=== PATIENT | female | born 1950 | race Caucasian/White ===

== ENCOUNTER → 2018-04-24 15:20 | Outpatient (CLI) | payer MEDICARE, BC, SELFPAY ==
[2018-04-24 15:44] LABS: Abs Immature Grans 0.01 k/cumm (0.0-0.09); Absolute Basophil Count 0.05 k/cumm (0.0-0.2); Absolute Eosinophil Count 0.25 k/cumm (0.0-0.7); Absolute Lymphocyte Count 1.99 k/cumm (1.2-3.4); Absolute Monocyte Count 0.62 k/cumm (0.11-0.7); Absolute Neutrophil Count 3.53 k/cumm (1.2-6.7); Basophils % 0.8; Eosinophils % 3.9; HCT 44.4 % (36.0-46.0); HGB 14.9 g/dL (12.0-15.5); Immature Grans % 0.2; Lymphocytes % 30.9; Mean Corp. HGB Concentration 33.6 g/dL (32.0-36.0); Mean Corpuscular Hemoglobin 29.7 pg (27.0-33.0); Mean Corpuscular Volume 88.6 fL (80-95); Mean Platelet Volume 10.3 fL (8.0-11.0); Monocytes % 9.6; Neutrophils % 54.6; Platelet Count 257 x1000/uL (130-400); RBC 5.01 m/cumm (4.00-5.20); RBC Distribution Width 12.8 % (11.7-14.6); White Blood Cell Count 6.45 k/cumm (4.4-10.8)
[2018-04-24 15:52] LABS: Hemoglobin A1C 6.5 % (4.5-6.2)
[2018-04-24 16:21] LABS: ALT 18 U/L (12-78); AST 20 U/L (15-37); Albumin 3.8 g/dL (3.4-5.0); Alkaline Phosphatase 97 U/L (46-116); C-Reactive Protein 0.23 mg/dL (0.0-0.3); CREATININE 0.85 mg/dL (0.55-1.02)
== END ==
PROVIDERS: PCP Family Medicine; Visit Provider Internal Medicine Rheumatology
DX: I10 Essential (primary) hypertension (principal); M06.9 Rheumatoid arthritis, unspecified; Z79.899 Other long term (current) drug therapy
CPT/HCPCS: 36415; 82040; 82565; 83036; 84075; 84132; 84450; 84460; 85025; 86140

== ENCOUNTER 2018-04-28 02:51 | Outpatient (RCR) | payer MEDICARE, BC, SELFPAY ==
[2018-04-28] MEDS: ABATACEPT 750 MG in Normal Saline 100 ML 200 MG IVPB (09:20)
[2018-04-28] MEDS: Normal Saline Flush 10 ML SYR IVP (09:21)
== END 2018-05-01 ==
LOC: INF 02:51
PROVIDERS: PCP Family Medicine; Visit Provider Internal Medicine
DX: M06.9 Rheumatoid arthritis, unspecified (principal)
CPT/HCPCS: 96365; J0129

== ENCOUNTER 2018-05-26 01:41 | Outpatient (RCR) | payer MEDICARE, BC, SELFPAY ==
[2018-05-26 09:11] VITALS: BP 143/66; PULSE 85; RESP 18; TEMP 36; O2SAT 97
[2018-05-26] MEDS: ABATACEPT 750 MG in Normal Saline 100 ML 200 MG IVPB (09:45)
[2018-05-26] MEDS: Normal Saline Flush 10 ML SYR IVP (09:45)
== END 2018-05-31 23:59 | disposition home or self-care (01) ==
LOC: INF 01:41
PROVIDERS: PCP Family Medicine; Visit Provider Internal Medicine
DX: M06.9 Rheumatoid arthritis, unspecified (principal)
CPT/HCPCS: 96365; J0129

== ENCOUNTER 2018-06-23 00:57 | Outpatient (RCR) | payer MEDICARE, BC, SELFPAY ==
[2018-06-23 10:49] VITALS: BP 140/79; PULSE 70; RESP 18; TEMP 36.6; O2SAT 95
[2018-06-23] MEDS: ABATACEPT 750 MG in Normal Saline 100 ML 200 MG IVPB (10:57)
[2018-06-23] MEDS: Normal Saline Flush 10 ML SYR IVP (10:57)
== END 2018-07-01 23:59 | disposition home or self-care (01) ==
LOC: INF 00:57
PROVIDERS: PCP Family Medicine; Visit Provider Internal Medicine
DX: M06.9 Rheumatoid arthritis, unspecified (principal)
CPT/HCPCS: 96365; J0129

== ENCOUNTER 2018-07-21 01:58 | Outpatient (RCR) | payer MEDICARE, BC, SELFPAY ==
[2018-07-21] MEDS: ABATACEPT 750 MG in Normal Saline 100 ML 200 MG IVPB (09:27)
[2018-07-21] MEDS: Normal Saline Flush 10 ML SYR IVP (09:27)
== END 2018-07-31 23:59 | disposition home or self-care (01) ==
LOC: INF 01:58
PROVIDERS: PCP Family Medicine; Visit Provider Family Medicine
DX: M06.9 Rheumatoid arthritis, unspecified (principal)
CPT/HCPCS: 96365; J0129

== ENCOUNTER 2018-08-19 01:36 | Outpatient (RCR) | payer MEDICARE, BC, SELFPAY ==
[2018-08-19] MEDS: Normal Saline Flush 10 ML SYR IVP (09:31)
[2018-08-19] MEDS: ABATACEPT 750 MG in Normal Saline 100 ML 200 MG IVPB (09:31)
== END 2018-08-31 23:59 | disposition home or self-care (01) ==
LOC: INF 01:36
PROVIDERS: PCP Family Medicine; Visit Provider Family Medicine
DX: M06.9 Rheumatoid arthritis, unspecified (principal)
CPT/HCPCS: 96365; J0129

== ENCOUNTER 2018-08-27 16:02 | Outpatient (CLI) | payer MEDICARE, BC, SELFPAY ==
[2018-08-27 17:04] LABS: Abs Immature Grans 0.01 k/cumm (0.0-0.09); Absolute Basophil Count 0.04 k/cumm (0.0-0.2); Absolute Eosinophil Count 0.65 k/cumm (0.0-0.7); Absolute Lymphocyte Count 2.35 k/cumm (1.2-3.4); Absolute Monocyte Count 0.65 k/cumm (0.11-0.7); Absolute Neutrophil Count 4.07 k/cumm (1.2-6.7); Basophils % 0.5; Eosinophils % 8.4; HCT 45.2 % (36.0-46.0); HGB 14.9 g/dL (12.0-15.5); Immature Grans % 0.1; Lymphocytes % 30.2; Mean Corpuscular Hemoglobin 29.5 pg (27.0-33.0); Mean Corpuscular Volume 89.5 fL (80-95); Mean Platelet Volume 10.3 fL (8.0-11.0); Monocytes % 8.4; Neutrophils % 52.4; Platelet Count 231 x1000/uL (130-400); RBC 5.05 m/cumm (4.00-5.20); RBC Distribution Width 13.1 % (11.7-14.6); White Blood Cell Count 7.77 k/cumm (4.4-10.8)
[2018-08-27 18:07] LABS: ALT 19 U/L (12-78); AST 18 U/L (15-37); Albumin 3.7 g/dL (3.4-5.0); Alkaline Phosphatase 76 U/L (46-116); BUN 21 mg/dL (7-18); Bilirubin, Total 0.7 mg/dL (0.2-1.0); CREATININE 1.16 mg/dL (0.55-1.02); Calcium 9.6 mg/dL (8.5-10.1); Chloride 101 mmol/L (98-107); Estimated GFR 46.74 (mL/min/1.73m2); Glucose 129 mg/dL (70-100); Potassium 3.9 mmol/L (3.5-5.1); Sodium 142 mmol/L (136-145); Total Protein 6.7 g/dL (6.4-8.2)
[2018-08-27 18:33] LABS: Hemoglobin A1C 6.8 % (4.5-6.2)
== END 2018-08-27 16:22 ==
PROVIDERS: PCP Family Medicine; Visit Provider Internal Medicine Rheumatology
DX: M06.9 Rheumatoid arthritis, unspecified (principal); I10 Essential (primary) hypertension; Z79.899 Other long term (current) drug therapy
CPT/HCPCS: 36415; 80053; 83036; 85025; 86140

== ENCOUNTER 2018-09-17 01:56 | Outpatient (RCR) | payer MEDICARE, BC, SELFPAY ==
[2018-09-17] MEDS: Normal Saline Flush 10 ML SYR IVP (09:30)
[2018-09-17] MEDS: ABATACEPT 750 MG in Normal Saline 100 ML 200 MG IVPB (09:30)
== END 2018-10-01 23:59 | disposition home or self-care (01) ==
LOC: INF 01:56
PROVIDERS: PCP Family Medicine; Visit Provider Internal Medicine
DX: M06.9 Rheumatoid arthritis, unspecified (principal)
CPT/HCPCS: 96365; J0129

== ENCOUNTER 2018-10-15 01:27 | Outpatient (RCR) | payer MEDICARE, BC, SELFPAY ==
[2018-10-15] MEDS: Normal Saline Flush 10 ML SYR IVP ×2 (09:21→09:43)
[2018-10-15] MEDS: ABATACEPT 750 MG in Normal Saline 100 ML 200 MG IVPB (09:43)
[2018-10-15 09:49] VITALS: BP 104/69; PULSE 70; TEMP 36.6; O2SAT 93
[2018-10-15 10:37] VITALS: BP 142/71
== END 2018-10-29 23:59 | disposition home or self-care (01) ==
LOC: INF 01:27
PROVIDERS: PCP Family Medicine; Visit Provider Internal Medicine
DX: M05.79 Rheumatoid arthritis with rheumatoid factor of multiple sites without organ or systems involvement (principal)
CPT/HCPCS: 96365; J0129

== ENCOUNTER 2018-11-12 01:51 | Outpatient (RCR) | payer MEDICARE, BC, SELFPAY ==
[2018-11-12] MEDS: Normal Saline Flush 10 ML SYR IVP (09:43)
[2018-11-12] MEDS: ABATACEPT 750 MG in Normal Saline 100 ML 200 MG IVPB (09:43)
== END 2018-11-29 23:59 | disposition home or self-care (01) ==
LOC: INF 01:51
PROVIDERS: PCP Family Medicine; Visit Provider Internal Medicine
DX: M05.79 Rheumatoid arthritis with rheumatoid factor of multiple sites without organ or systems involvement (principal)
CPT/HCPCS: 96365; J0129

== ENCOUNTER 2018-12-04 09:01 | Outpatient (CLI) | payer MEDICARE, BC, SELFPAY ==
[2018-12-04 09:32] LABS: Absolute Basophil Count 0.03 k/cumm (0.0-0.2); Absolute Eosinophil Count 0.53 k/cumm (0.0-0.7); Absolute Lymphocyte Count 1.69 k/cumm (1.2-3.4); Absolute Monocyte Count 0.58 k/cumm (0.11-0.7); Absolute Neutrophil Count 2.97 k/cumm (1.2-6.7); Basophils % 0.5; Eosinophils % 9.1; HCT 45.6 % (36.0-46.0); Lymphocytes % 29.1; Mean Corp. HGB Concentration 32.9 g/dL (32.0-36.0); Mean Corpuscular Hemoglobin 29.2 pg (27.0-33.0); Mean Corpuscular Volume 88.7 fL (80-95); Mean Platelet Volume 9.9 fL (8.0-11.0); Neutrophils % 51.3; Platelet Count 219 x1000/uL (130-400); RBC 5.14 m/cumm (4.00-5.20); RBC Distribution Width 12.8 % (11.7-14.6)
[2018-12-04 10:19] LABS: ALT 19 U/L (12-78); AST 18 U/L (15-37); Albumin 3.6 g/dL (3.4-5.0); Alkaline Phosphatase 75 U/L (46-116); Anion Gap 6.6 mmol/L (3-11); BUN 21 mg/dL (7-18); Bilirubin, Total 0.8 mg/dL (0.2-1.0); CO2 31.4 mmol/L (21.0-32.0); Calcium 9.1 mg/dL (8.5-10.1); Chloride 101 mmol/L (98-107); Glucose 148 mg/dL (70-100); Sodium 139 mmol/L (136-145); Total Protein 6.6 g/dL (6.4-8.2)
== END 2018-12-04 09:21 ==
PROVIDERS: PCP Family Medicine; Visit Provider Internal Medicine Rheumatology
DX: M06.9 Rheumatoid arthritis, unspecified (principal); I10 Essential (primary) hypertension; Z79.899 Other long term (current) drug therapy
CPT/HCPCS: 36415; 80053; 83036; 85025; 86140

== ENCOUNTER 2018-12-08 01:20 | Outpatient (RCR) | payer MEDICARE, BC, SELFPAY ==
[2018-12-08] MEDS: ABATACEPT 750 MG in Normal Saline 100 ML 200 MG IVPB (12:20)
[2018-12-08] MEDS: Normal Saline Flush 10 ML SYR IVP (12:20)
[2018-12-08 12:21] VITALS: BP 146/70; PULSE 73; RESP 18; TEMP 36; O2SAT 98
== END 2018-12-29 23:59 | disposition home or self-care (01) ==
LOC: INF 01:20
PROVIDERS: PCP Family Medicine; Visit Provider Internal Medicine
DX: M05.79 Rheumatoid arthritis with rheumatoid factor of multiple sites without organ or systems involvement (principal)
CPT/HCPCS: 96365; J0129

== ENCOUNTER 2019-01-06 01:11 | Outpatient (RCR) | payer MEDICARE, BC, SELFPAY ==
[2019-01-06] MEDS: ABATACEPT 750 MG in Normal Saline 100 ML 200 MG IVPB (09:37)
[2019-01-06] MEDS: Normal Saline Flush 10 ML SYR IVP (09:37)
== END 2019-01-29 23:59 | disposition home or self-care (01) ==
LOC: INF 01:11
PROVIDERS: PCP Family Medicine; Visit Provider Internal Medicine
DX: M05.79 Rheumatoid arthritis with rheumatoid factor of multiple sites without organ or systems involvement (principal)
CPT/HCPCS: 96365; J0129

== ENCOUNTER 2019-01-22 00:29 | Outpatient (CLI) | payer MEDICARE, BC, SELFPAY ==
--- NOTE | 2019-01-22 10:30 | MERGE_ITS ---
*[facility]* *[facility]* [address] [place] [address] Date of study: 01/22/2019 Transthoracic Echocardiography M-mode, complete 2D, complete spectral Doppler, and color Doppler *STUDY CONCLUSIONS* Summary: 1. Left ventricle: The cavity size was normal. Wall thickness was normal. Systolic function was vigorous. The estimated ejection fraction was 65-70%. There was dynamic obstruction in the mid cavity likely due to vigorous LV function. Wall motion was normal; there were no regional wall motion abnormalities. 2. Right ventricle: The cavity size was normal. Systolic function was normal. 3. Left atrium: The atrium was moderately dilated. 4. Aortic valve: Trileaflet; mildly thickened, mildly calcified leaflets. Valve mobility was restricted. Transvalvular velocity was increased. There was mild to moderate stenosis. There was trivial regurgitation. Peak velocity (S): 3.1m/sec. VTI ratio of LVOT to aortic valve: 0.47. 5. Inferior vena cava: The vessel was patent and normal in size. The respirophasic diameter changes were in the normal range (greater than or equal to 50%), consistent with normal central venous pressure. *PATIENT PRESENTATION* Height: 162.6cm ((64in) ) S/D Pressure: 140 / 82 Weight: 89.8kg ((197.6lb) ) BSA: 2.05m^2 Test start time: 10:35 AM. Test stop time: 12:00 PM. ORDERING Sejal Bush REFERRING Sejal Bush PERFORMING Unknown CONSULTING Ivette Escamilla PERFORMING [facility] DIETETIC AIDE RT Adelaida (R)(CT), RDCS *PROCEDURE DATA* Procedure information: The patient was identified by two identifiers. This study was interpreted by [facility]. Pertinent images and digital data are archived for permanent storage and are available for subsequent review. No prior study was available for comparison. Study status: Routine. Transthoracic echocardiography. M-mode, complete 2D, complete spectral Doppler, and color Doppler. A Transthoracic Echocardiogram was performed. Scanning was performed from the parasternal, apical, subcostal, and suprasternal notch acoustic windows. Images were obtained using an [id number] cardiac ultrasound machine. Image quality was adequate. Study completion: The patient tolerated the procedure well. There were no complications. History: PMH: Lightheadedness, new systolic murmur R01.1. *CARDIAC ANATOMY* Left ventricle: The cavity size was normal. Wall thickness was normal. Systolic function was vigorous. The estimated ejection fraction was 65-70%. There was dynamic obstruction in the mid cavity likely due to vigorous LV function. Wall motion was normal; there were no regional wall motion abnormalities. Findings consistent with diastolic dysfunction. There was no evidence of elevated ventricular filling pressure by Doppler parameters. Aortic valve: Trileaflet; mildly thickened, mildly calcified leaflets. Valve mobility was restricted. Doppler: Transvalvular velocity was increased. There was mild to moderate stenosis. There was trivial regurgitation. VTI ratio of LVOT to aortic valve: 0.47. Valve area (VTI): 1.4cm^2. Indexed valve area (VTI): 0.7cm^2/m^2. Peak velocity ratio of LVOT to aortic valve: 0.41. Valve area (Vmax): 1.2cm^2. Indexed valve area (Vmax): 0.6cm^2/m^2. Mean velocity ratio of LVOT to aortic valve: 0.45. Valve area (Vmean): 1.3cm^2. Indexed valve area (Vmean): 0.6cm^2/m^2. Mean gradient (S): 22.7mm Hg. Peak gradient (S): 37.7mm Hg. Aorta: Aortic root: The aortic root was normal in size. Ascending aorta: The ascending aorta was normal in size. Mitral valve: Moderately calcified annulus. Mobility was not restricted. Doppler: Transvalvular velocity was within the normal range. There was no evidence for stenosis. There was mild regurgitation. Valve area by pressure half-time: 2.2cm^2. Indexed valve area by pressure half-time: 1.1cm^2/m^2. Peak gradient (D): 3.7mm Hg. Left atrium: The atrium was moderately dilated. Right ventricle: The cavity size was normal. Systolic function was normal. Pulmonic valve: The pulmonary valve appears to be grossly normal. Doppler: Transvalvular velocity was within the normal range. There was no evidence for stenosis. There was no significant regurgitation. Tricuspid valve: Structurally normal valve. Doppler: Transvalvular velocity was within the normal range. There was no evidence for stenosis. There was trivial regurgitation. Pulmonary artery: Poorly visualized. Pulmonary systolic pressure was within the normal range, in the range of 20mm Hg to 25mm Hg. Right atrium: The atrium was normal in size. Pericardium: There was no pericardial effusion. Systemic veins: Inferior vena cava: Well visualized. The vessel was patent and normal in size. The respirophasic diameter changes were in the normal range (greater than or equal to 50%), consistent with normal central venous pressure. Baseline ECG: Normal sinus rhythm. Measurements Left ventricle Value Reference LV ID, ED, PLAX 4.8 cm 3.5 - 6.0 LV ID, ES, PLAX 3.2 cm 2.1 - 4.0 LV PW thickness, ED, PLAX 1.0 cm LV end-diastolic volume, 1-p A2C 83 ml LV ejection fraction, 1-p A2C 69 % LV end-diastolic volume, 1-p A4C 82 ml LV ejection fraction, 1-p A4C 64 % LV e', lateral 0.088 m/sec LV E/e', lateral 11 LV e', medial 0.062 m/sec LV E/e', medial 16 LV e', average 0.075 m/sec LV E/e', average 13 Ventricular septum Value Reference IVS thickness, ED, PLAX 0.9 cm LVOT Value Reference LVOT ID, A-P 1.9 cm LVOT area 2.9 cm^2 LVOT peak velocity, S 1.27 m/sec LVOT mean velocity, S 1.03 m/sec LVOT VTI, S 31.4 cm LVOT peak gradient, S 6.4 mm Hg LVOT mean gradient, S 4.5 mm Hg Stroke volume (SV), LVOT DP 92 ml Stroke index (SV/bsa), LVOT DP 45 ml/m^2 Aortic valve Value Reference Aortic valve peak velocity, S 3.1 m/sec Aortic valve mean velocity, S 2.27 m/sec Aortic valve VTI, S 67.0 cm Aortic mean gradient, S 22.7 mm Hg Aortic peak gradient, S 37.7 mm Hg VTI ratio, LVOT/AV 0.47 Aortic valve area, VTI 1.4 cm^2 Velocity ratio, peak, LVOT/AV 0.41 Aortic valve area, peak velocity 1.2 cm^2 Velocity ratio, mean, LVOT/AV 0.45 Aortic valve area, mean velocity 1.3 cm^2 Aortic valve area/bsa, mean velocity 0.6 cm^2/m^2 Aorta Value Reference Aortic root ID, ED 3.1 cm Ascending aorta ID, A-P, S 3.3 cm Left atrium Value Reference LA ID, A-P, ES 4.0 cm LA ID/bsa, A-P 2.0 cm/m^2 <=2.2 LA area, ES, A4C (H) 25.4 cm^2 8.8 - 23.4 LA volume/bsa, ES, 1-p A4C 47 ml/m^2 LA/aortic root ratio 1.31 Mitral valve Value Reference Mitral E-wave peak velocity 0.96 m/sec Mitral A-wave peak velocity 1.48 m/sec Mitral deceleration time (H) 342 ms 150 - 230 Mitral pressure half-time 99 ms Mitral peak gradient, D 3.7 mm Hg Mitral E/A ratio, peak 0.65 Mitral valve area, PHT, DP 2.2 cm^2 Pulmonary veins Value Reference Pulmonary vein peak velocity, S 0.79 m/sec Pulmonary vein peak velocity, D 0.38 m/sec Pulmonary vein velocity ratio, peak, 2.09 S/D Pulmonary vein A-wave reversal peak 0.98 m/sec velocity Pulmonary vein A-wave reversal 111 ms duration Tricuspid valve Value Reference Tricuspid regurg peak velocity 2 m/sec Tricuspid peak RV-RA gradient 16.1 mm Hg Right atrium Value Reference RA area, ES, A4C 10.7 cm^2 8.3 - 19.5 Legend: (L) and (H) elly values outside specified reference range. I have personally reviewed the images and have reviewed and edited the reported findings. Electronically signed by Queta Holbrook 01/25/2019 07:19
== END 2019-01-22 00:49 ==
PROVIDERS: PCP Family Medicine; Visit Provider Internal Medicine Rheumatology
DX: R01.1 Cardiac murmur, unspecified (principal); R42 Dizziness and giddiness; I35.2 Nonrheumatic aortic (valve) stenosis with insufficiency; I10 Essential (primary) hypertension; E78.5 Hyperlipidemia, unspecified
CPT/HCPCS: 93306

== ENCOUNTER 2019-02-04 01:27 | Outpatient (RCR) | payer MEDICARE, BC, SELFPAY ==
[2019-02-04] MEDS: Normal Saline Flush 10 ML SYR IVP (10:04)
[2019-02-04] MEDS: ABATACEPT 750 MG in Normal Saline 100 ML 200 MG IVPB (10:04)
== END 2019-02-28 23:59 | disposition home or self-care (01) ==
LOC: INF 01:27
PROVIDERS: PCP Family Medicine; Visit Provider Internal Medicine
DX: M05.79 Rheumatoid arthritis with rheumatoid factor of multiple sites without organ or systems involvement (principal)
CPT/HCPCS: 96365; J0129

== ENCOUNTER 2019-03-03 01:06 | Outpatient (RCR) | payer MEDICARE, BC, SELFPAY ==
[2019-03-03 09:28] LABS: Abs Immature Grans 0.01 k/cumm (0.0-0.09); Absolute Basophil Count 0.03 k/cumm (0.0-0.2); Absolute Eosinophil Count 0.91 k/cumm (0.0-0.7); Absolute Lymphocyte Count 1.56 k/cumm (1.2-3.4); Absolute Monocyte Count 0.59 k/cumm (0.11-0.7); Absolute Neutrophil Count 2.64 k/cumm (1.2-6.7); Basophils % 0.5; Eosinophils % 15.9; HCT 45.9 % (36.0-46.0); HGB 15.3 g/dL (12.0-15.5); Immature Grans % 0.2; Lymphocytes % 27.2; Mean Corp. HGB Concentration 33.3 g/dL (32.0-36.0); Mean Corpuscular Hemoglobin 29.2 pg (27.0-33.0); Mean Corpuscular Volume 87.6 fL (80-95); Monocytes % 10.3; Neutrophils % 45.9; Platelet Count 240 x1000/uL (130-400); RBC 5.24 m/cumm (4.00-5.20); White Blood Cell Count 5.74 k/cumm (4.4-10.8)
[2019-03-03] MEDS: Normal Saline Flush 10 ML SYR IVP (09:30)
[2019-03-03 09:40] LABS: ALT 11 U/L (12-78); AST 9 U/L (15-37); Albumin 3.6 g/dL (3.4-5.0); Alkaline Phosphatase 74 U/L (46-116); Anion Gap 6.8 mmol/L (3-11); BUN 15 mg/dL (7-18); Bilirubin, Total 0.7 mg/dL (0.2-1.0); C-Reactive Protein 0.25 mg/dL (0.0-0.3); CO2 30.2 mmol/L (21.0-32.0); CREATININE 0.81 mg/dL (0.55-1.02); Calcium 8.9 mg/dL (8.5-10.1); Chloride 102 mmol/L (98-107); Glucose 168 mg/dL (70-100); Potassium 3.2 mmol/L (3.5-5.1); Sodium 139 mmol/L (136-145)
[2019-03-03] MEDS: ABATACEPT 750 MG in Normal Saline 100 ML 200 MG IVPB (09:54)
== END 2019-03-31 23:59 | disposition home or self-care (01) ==
LOC: INF 01:06
PROVIDERS: PCP Family Medicine; Visit Provider Internal Medicine
DX: M05.79 Rheumatoid arthritis with rheumatoid factor of multiple sites without organ or systems involvement (principal)
CPT/HCPCS: 36415; 80053; 96365; 85025; 86140; J0129

== ENCOUNTER 2019-04-29 00:52 | Outpatient (RCR) | payer MEDICARE, BC, SELFPAY ==
[2019-04-01] MEDS: Normal Saline Flush 10 ML SYR IVP (09:43)
[2019-04-01] MEDS: ABATACEPT 750 MG in Normal Saline 100 ML 200 MG IVPB (09:43)
[2019-04-29] MEDS: Normal Saline Flush 10 ML SYR IVP (09:31)
[2019-04-29] MEDS: ABATACEPT 750 MG in Normal Saline 100 ML 200 MG IVPB (09:31)
[2019-04-29 09:51] LABS: Abs Immature Grans 0.01 k/cumm (0.0-0.09); Absolute Basophil Count 0.05 k/cumm (0.0-0.2); Absolute Eosinophil Count 0.32 k/cumm (0.0-0.7); Absolute Lymphocyte Count 1.55 k/cumm (1.2-3.4); Absolute Monocyte Count 0.51 k/cumm (0.11-0.7); Absolute Neutrophil Count 2.72 k/cumm (1.2-6.7); Eosinophils % 6.2; HCT 45.8 % (36.0-46.0); HGB 15.2 g/dL (12.0-15.5); Immature Grans % 0.2; Mean Corp. HGB Concentration 33.2 g/dL (32.0-36.0); Mean Corpuscular Hemoglobin 29.3 pg (27.0-33.0); Mean Corpuscular Volume 88.2 fL (80-95); Mean Platelet Volume 10.6 fL (8.0-11.0); Monocytes % 9.9; Neutrophils % 52.7; Platelet Count 213 x1000/uL (130-400); RBC 5.19 m/cumm (4.00-5.20); RBC Distribution Width 13.2 % (11.7-14.6); White Blood Cell Count 5.16 k/cumm (4.4-10.8)
== END 2019-05-01 23:59 | disposition home or self-care (01) ==
LOC: INF 00:52
PROVIDERS: Internal Medicine; PCP Family Medicine; Visit Provider Internal Medicine
DX: M05.79 Rheumatoid arthritis with rheumatoid factor of multiple sites without organ or systems involvement (principal)
CPT/HCPCS: 36415; 80053; 96365; 85025; 86140; J0129

== ENCOUNTER 2019-05-10 09:34 | Outpatient (CLI) | payer MEDICARE, BC, SELFPAY ==
[2019-05-10 09:52] LABS: Abs Immature Grans 0.01 k/cumm (0.0-0.09); Absolute Basophil Count 0.05 k/cumm (0.0-0.2); Absolute Eosinophil Count 0.61 k/cumm (0.0-0.7); Absolute Lymphocyte Count 1.83 k/cumm (1.2-3.4); Absolute Monocyte Count 0.53 k/cumm (0.11-0.7); Absolute Neutrophil Count 3.08 k/cumm (1.2-6.7); Basophils % 0.8; HCT 46.1 % (36.0-46.0); HGB 15.2 g/dL (12.0-15.5); Immature Grans % 0.2; Mean Corpuscular Hemoglobin 29.2 pg (27.0-33.0); Mean Corpuscular Volume 88.7 fL (80-95); Mean Platelet Volume 9.8 fL (8.0-11.0); Monocytes % 8.7; Neutrophils % 50.3; Platelet Count 254 x1000/uL (130-400); RBC Distribution Width 12.9 % (11.7-14.6); White Blood Cell Count 6.11 k/cumm (4.4-10.8)
[2019-05-10 11:15] LABS: ALT 16 U/L (14-59); AST 17 U/L (15-37); Albumin 3.7 g/dL (3.4-5.0); Alkaline Phosphatase 78 U/L (46-116); Anion Gap 9.8 mmol/L (3-11); BUN 17 mg/dL (7-18); C-Reactive Protein 0.24 mg/dL (0.0-0.3); CO2 28.2 mmol/L (21.0-32.0); CREATININE 0.82 mg/dL (0.55-1.02); Calcium 8.8 mg/dL (8.5-10.1); Chloride 102 mmol/L (98-107); Glucose 144 mg/dL (70-100); Potassium 3.7 mmol/L (3.5-5.1); Sodium 140 mmol/L (136-145); Total Protein 6.7 g/dL (6.4-8.2)
== END 2019-05-10 09:54 ==
PROVIDERS: PCP Family Medicine; Visit Provider Internal Medicine Rheumatology
DX: M06.9 Rheumatoid arthritis, unspecified (principal); I10 Essential (primary) hypertension; Z79.899 Other long term (current) drug therapy
CPT/HCPCS: 36415; 80053; 83036; 85025; 86140

== ENCOUNTER 2019-05-26 01:20 | Outpatient (RCR) | payer MEDICARE, BC, SELFPAY ==
[2019-05-26 09:53] VITALS: BP 144/80; PULSE 70; RESP 19; TEMP 36.4; O2SAT 98
[2019-05-26] MEDS: ABATACEPT 750 MG in Normal Saline 100 ML 200 MG IVPB (10:11)
[2019-05-26] MEDS: Normal Saline Flush 10 ML SYR IVP (10:15)
[2019-05-26 10:53] VITALS: BP 135/77; PULSE 75; RESP 20; TEMP 36.5; O2SAT 97
== END 2019-05-31 23:59 | disposition home or self-care (01) ==
LOC: INF 01:20
PROVIDERS: PCP Family Medicine; Visit Provider Family Medicine
DX: M05.79 Rheumatoid arthritis with rheumatoid factor of multiple sites without organ or systems involvement (principal)
CPT/HCPCS: 96365; J0129

== ENCOUNTER 2019-06-01 07:50 | Outpatient (CLI) | payer MEDICARE, BC, SELFPAY ==
--- NOTE | 2019-06-01 08:15 | NS.NUTBLAN_ITS ---
DESCRIPTION/ASSESSMENT: Kassie Luciano presents for Medical Nutrition Therapy for diabetes support focused on blood sugars and weight management. She has had a recent weight gain with an increase in A1c to 7. *Manages diabetes with Metformin 500mg daily; intolerant to higher dosage. *Co-morbidity of heart arrhythmia now on medication. *Monitors blood sugars every morning and at other random times initially 140-154 now 114-124 over past 2 days however 3 hours after breakfast blood sugars 95- 128. *Weight fluctuates 194-198 weighing daily. Eats 3 meals a day with snacks of nuts and kielbasa, for example. She has mostly given up alcohol which she misses. She eats few fruit or vegetable. She misses pasta, hermits, cake, chewy cookies. *Physical activity - states she has a treadmill which she doesn't like or use and otherwise is content to be in her sewing room. *Admits to high stress secondary to caring for her grandson and poor sleep. Goal for today is to stop weight gain and prevent progression of diabetes and medication. INTERVENTION: NUTRITION - focused on carbohydrate distribution with diabetes food guide, and cardiovascular considerations especially sodium and saturated fat. Discussed mindful eating including hunger/fullness and distracted eating. PHYSICAL ACTIVITY: Discussed benefits for diabetes and cardiovascular concerns, and strategies to increase this. STRESS MANAGEMENT: Discussed techniques that work for her. MONITORING: Discussed ways to use glucometer to learn about impact of food throughout the day. Explained A1c and goal. In addition, suggested she not weigh herself every day, but weekly. Discussed muscle mass as more important than actual weight. aRdha is engaged in the conversation; denies any resource limitations to being successful. ACTION PLAN: Radha will: Pay attention to hunger/fullness; spread carbohydrate portions evenly through day; eat 3 cups vegetables daily. Begin walking while waiting for her son to be picked up at school. Monitor blood sugars pairing with lunch/supper. We will be in touch by telephone as desired. Face to Face encounter: 68 minutes
== END 2019-06-01 08:10 ==
PROVIDERS: PCP Family Medicine; Visit Provider Dietitian, Registered
DX: E11.9 Type 2 diabetes mellitus without complications (principal); Z71.3 Dietary counseling and surveillance
CPT/HCPCS: 97802

== ENCOUNTER 2019-06-07 02:53 | Outpatient (CLI) | payer MEDICARE, BC, SELFPAY ==
--- NOTE | 2019-06-10 09:21 | HOLT_ITS ---
The study is a 48-hour Holter monitoring ordered for palpitations. - Sinus rhythm with an average heart rate of 69 bpm (min 55- max 92bpm). - There were occasional (less than 1%) isolated and paired atrial premature complexes and 0 runs of atrial tachycardia. - There were rare (less than 1%) isolated and paired ventricular premature complexes and 0 runs of ventricular tachycardia. - There were no runs of supraventricular tachycardia - There were no significant pauses. CC: Dictated by: JUSTEN REDDY MD Dictated:: [id number] <Electronically signed by Justen Reddy M.D.> 06/10/19923 Transcribed Date: 06/10/19 Transcribed Time: 920By: MATT
== END 2019-06-07 03:13 ==
PROVIDERS: PCP Family Medicine; Visit Provider Nurse Practitioner Primary Care
DX: R00.2 Palpitations (principal); I49.1 Atrial premature depolarization
CPT/HCPCS: 93225

== ENCOUNTER 2019-06-09 16:04 | Outpatient (CLI) | payer MEDICARE, BC, SELFPAY ==
--- NOTE | 2019-06-10 09:21 | W.CARDEVENT ---
Cardiac Event Recorder Cardiac Event Note: The study is a 48-hour Holter monitoring ordered for palpitations. - Sinus rhythm with an average heart rate of 69 bpm (min 55- max 92bpm). - There were occasional (less than 1%) isolated and paired atrial premature complexes and 0 runs of atrial tachycardia. - There were rare (less than 1%) isolated and paired ventricular premature complexes and 0 runs of ventricular tachycardia. - There were no runs of supraventricular tachycardia - There were no significant pauses.
== END 2019-06-09 16:24 ==
PROVIDERS: PCP Family Medicine; Visit Provider Nurse Practitioner Primary Care
DX: R00.2 Palpitations (principal); I49.1 Atrial premature depolarization
CPT/HCPCS: 93226

== ENCOUNTER 2019-06-10 09:21 | Outpatient (CLI) | payer MEDICARE, BC, SELFPAY | END 2019-06-10 09:41 | PROVIDERS: PCP Family Medicine; Referring Provider Family Medicine; Visit Provider Internal Medicine Cardiovascular Disease | DX: R00.2 Palpitations (principal); I49.1 Atrial premature depolarization | CPT/HCPCS: 93227 ==

== ENCOUNTER 2019-06-23 00:53 | Outpatient (RCR) | payer MEDICARE, BC, SELFPAY ==
[2019-06-23] MEDS: ABATACEPT 750 MG in Normal Saline 100 ML 200 MG IVPB (09:52)
[2019-06-23] MEDS: Normal Saline Flush 10 ML SYR IVP (09:52)
== END 2019-07-01 23:59 | disposition home or self-care (01) ==
LOC: INF 00:53
PROVIDERS: PCP Family Medicine; Visit Provider Internal Medicine
DX: M05.79 Rheumatoid arthritis with rheumatoid factor of multiple sites without organ or systems involvement (principal)
CPT/HCPCS: 96365; J0129

== ENCOUNTER 2019-07-21 01:01 | Outpatient (RCR) | payer MEDICARE, BC, SELFPAY ==
[2019-07-21] MEDS: ABATACEPT 750 MG in Normal Saline 100 ML 200 MG IVPB (09:32)
[2019-07-21] MEDS: Normal Saline Flush 10 ML SYR IVP (09:33)
== END 2019-07-31 23:59 | disposition home or self-care (01) ==
LOC: INF 01:01
PROVIDERS: PCP Family Medicine; Visit Provider Internal Medicine
DX: M05.79 Rheumatoid arthritis with rheumatoid factor of multiple sites without organ or systems involvement (principal)
CPT/HCPCS: 96365; J0129

== ENCOUNTER 2019-08-05 07:58 | Outpatient (CLI) | payer MEDICARE, BC, SELFPAY | END 2019-08-05 08:18 | PROVIDERS: PCP Family Medicine; Visit Provider Internal Medicine Cardiovascular Disease | DX: I35.0 Nonrheumatic aortic (valve) stenosis (principal); R00.2 Palpitations; E11.9 Type 2 diabetes mellitus without complications; I10 Essential (primary) hypertension | CPT/HCPCS: 99204; 93005; 93010 ==

== ENCOUNTER 2019-08-18 01:11 | Outpatient (RCR) | payer MEDICARE, BC, SELFPAY ==
[2019-08-18] MEDS: ABATACEPT 750 MG in Normal Saline 100 ML 200 MG IVPB (09:33)
[2019-08-18] MEDS: Normal Saline Flush 10 ML SYR IVP (09:37)
== END 2019-08-31 23:59 | disposition home or self-care (01) ==
LOC: INF 01:11
PROVIDERS: PCP Family Medicine; Visit Provider Internal Medicine
DX: M05.79 Rheumatoid arthritis with rheumatoid factor of multiple sites without organ or systems involvement (principal)
CPT/HCPCS: 96365; J0129

== ENCOUNTER → 2019-09-02 09:50 | Outpatient (BNVA) | payer MEDICARE, BC, SELFPAY | PROVIDERS: PCP Family Medicine; Referring Provider Family Medicine; Visit Provider Internal Medicine Cardiovascular Disease | DX: I35.0 Nonrheumatic aortic (valve) stenosis (principal); R00.2 Palpitations; I10 Essential (primary) hypertension; E11.9 Type 2 diabetes mellitus without complications | CPT/HCPCS: 99214 ==

== ENCOUNTER 2019-09-02 10:24 | Outpatient (CLI) | payer MEDICARE, BC, SELFPAY ==
[2019-09-02 11:52] LABS: Anion Gap 13.6 mmol/L (3-11); BUN 16 mg/dL (7-18); CO2 28.4 mmol/L (21.0-32.0); Calcium 8.8 mg/dL (8.5-10.1); Calculated LDL 173 mg/dL; Chloride 100 mmol/L (98-107); Cholesterol 260 mg/dL (<200); Glucose 168 mg/dL (74-106); HDL Cholesterol 52 mg/dL (40-60); Potassium 3.6 mmol/L (3.5-5.1); Sodium 142 mmol/L (136-145); Triglyceride 178 mg/dL (<150)
== END 2019-09-02 10:44 ==
PROVIDERS: PCP Family Medicine; Visit Provider Internal Medicine Cardiovascular Disease
DX: I10 Essential (primary) hypertension (principal); I35.0 Nonrheumatic aortic (valve) stenosis; R00.2 Palpitations; E11.9 Type 2 diabetes mellitus without complications
CPT/HCPCS: 36415; 80048; 80061; 99214

== ENCOUNTER 2019-09-10 10:02 | Outpatient (CLI) | payer MEDICARE, BC, SELFPAY ==
[2019-09-10 10:48] LABS: Absolute Basophil Count 0.05 k/cumm (0.0-0.2); Absolute Eosinophil Count 0.86 k/cumm (0.0-0.7); Absolute Lymphocyte Count 1.52 k/cumm (1.2-3.4); Absolute Monocyte Count 0.51 k/cumm (0.11-0.7); Absolute Neutrophil Count 2.63 k/cumm (1.2-6.7); Basophils % 0.9; Eosinophils % 15.4; HCT 44.6 % (36.0-46.0); HGB 14.6 g/dL (12.0-15.5); Lymphocytes % 27.3; Mean Corp. HGB Concentration 32.7 g/dL (32.0-36.0); Mean Corpuscular Volume 88.7 fL (80-95); Mean Platelet Volume 9.8 fL (8.0-11.0); Monocytes % 9.2; Neutrophils % 47.2; Platelet Count 249 x1000/uL (130-400); RBC 5.03 m/cumm (4.00-5.20); RBC Distribution Width 12.9 % (11.7-14.6); White Blood Cell Count 5.57 k/cumm (4.4-10.8)
[2019-09-10 11:08] LABS: Hemoglobin A1C 6.7 % (3.8-5.6)
[2019-09-10 11:33] LABS: ALT 16 U/L (14-59); AST 16 U/L (15-37); Albumin 3.6 g/dL (3.4-5.0); Alkaline Phosphatase 77 U/L (46-116); Anion Gap 8.8 mmol/L (3-11); BUN 20 mg/dL (7-18); Bilirubin, Total 0.5 mg/dL (0.2-1.0); C-Reactive Protein 0.17 mg/dL (0.0-0.3); CO2 31.2 mmol/L (21.0-32.0); CREATININE 0.93 mg/dL (0.55-1.02); Calcium 9.3 mg/dL (8.5-10.1); Chloride 103 mmol/L (98-107); Glucose 169 mg/dL (74-106); Potassium 3.7 mmol/L (3.5-5.1); Sodium 143 mmol/L (136-145); Total Protein 6.5 g/dL (6.4-8.2)
== END 2019-09-10 10:22 ==
PROVIDERS: PCP Family Medicine; Visit Provider Internal Medicine Rheumatology
DX: M06.9 Rheumatoid arthritis, unspecified (principal); I10 Essential (primary) hypertension; Z79.899 Other long term (current) drug therapy
CPT/HCPCS: 36415; 80053; 83036; 85025; 86140

== ENCOUNTER 2019-09-15 00:46 | Outpatient (RCR) | payer MEDICARE, BC, SELFPAY ==
[2019-09-15] MEDS: ABATACEPT 750 MG in Normal Saline 100 ML 200 MG IVPB (09:27)
[2019-09-15] MEDS: Normal Saline Flush 10 ML SYR IVP (09:36)
== END 2019-10-01 23:59 | disposition home or self-care (01) ==
LOC: INF 00:46
PROVIDERS: PCP Family Medicine; Visit Provider Internal Medicine
DX: M05.79 Rheumatoid arthritis with rheumatoid factor of multiple sites without organ or systems involvement (principal)
CPT/HCPCS: 96365; J0129

== ENCOUNTER 2019-10-13 02:17 | Outpatient (RCR) | payer MEDICARE, BC, SELFPAY ==
[2019-10-13] MEDS: ABATACEPT 750 MG in Normal Saline 100 ML 200 MG IVPB (09:36)
[2019-10-13] MEDS: Normal Saline Flush 10 ML SYR IVP (09:36)
== END 2019-10-30 23:59 | disposition home or self-care (01) ==
LOC: INF 02:17
PROVIDERS: PCP Family Medicine; Visit Provider Internal Medicine
DX: M05.79 Rheumatoid arthritis with rheumatoid factor of multiple sites without organ or systems involvement (principal)
CPT/HCPCS: 96365; J0129

== ENCOUNTER 2019-11-09 01:22 | Outpatient (RCR) | payer MEDICARE, BC, SELFPAY ==
[2019-11-09] MEDS: ABATACEPT 750 MG in Normal Saline 100 ML 200 MG IVPB (09:37)
[2019-11-09] MEDS: Normal Saline Flush 10 ML SYR IVP (09:37)
== END 2019-11-30 23:59 | disposition home or self-care (01) ==
LOC: INF 01:22
PROVIDERS: PCP Family Medicine; Visit Provider Internal Medicine
DX: M05.79 Rheumatoid arthritis with rheumatoid factor of multiple sites without organ or systems involvement (principal)
CPT/HCPCS: 96365; J0129

== ENCOUNTER 2019-12-07 03:24 | Outpatient (RCR) | payer MEDICARE, BC, SELFPAY ==
[2019-12-07 09:22] LABS: Abs Immature Grans 0.01 k/cumm (0.0-0.09); Absolute Basophil Count 0.05 k/cumm (0.0-0.2); Absolute Eosinophil Count 0.67 k/cumm (0.0-0.7); Absolute Lymphocyte Count 1.78 k/cumm (1.2-3.4); Absolute Monocyte Count 0.55 k/cumm (0.11-0.7); Absolute Neutrophil Count 2.56 k/cumm (1.2-6.7); Basophils % 0.9; Eosinophils % 11.9; HCT 45.9 % (36.0-46.0); HGB 15.3 g/dL (12.0-15.5); Immature Grans % 0.2 %; Lymphocytes % 31.7; Mean Corp. HGB Concentration 33.3 g/dL (32.0-36.0); Mean Corpuscular Hemoglobin 29.7 pg (27.0-33.0); Mean Corpuscular Volume 89.1 fL (80-95); Mean Platelet Volume 10.1 fL (8.0-11.0); Monocytes % 9.8; Neutrophils % 45.5; Platelet Count 228 x1000/uL (130-400); RBC 5.15 m/cumm (4.00-5.20); RBC Distribution Width 13.1 % (11.7-14.6); White Blood Cell Count 5.62 k/cumm (4.4-10.8)
[2019-12-07 09:37] LABS: ALT 21 U/L (14-59); AST 18 U/L (15-37); Albumin 3.6 g/dL (3.4-5.0); Alkaline Phosphatase 75 U/L (46-116); Anion Gap 8.5 mmol/L (3-11); BUN 20 mg/dL (7-18); Bilirubin, Total 0.9 mg/dL (0.2-1.0); C-Reactive Protein 0.22 mg/dL (0.0-0.3); CO2 29.5 mmol/L (21.0-32.0); CREATININE 0.88 mg/dL (0.55-1.02); Calcium 8.9 mg/dL (8.5-10.1); Chloride 100 mmol/L (98-107); Glucose 201 mg/dL (74-106); Potassium 3.2 mmol/L (3.5-5.1); Sodium 138 mmol/L (136-145); Total Protein 7.3 g/dL (6.4-8.2)
[2019-12-07] MEDS: ABATACEPT 750 MG in Normal Saline 100 ML 200 MG IVPB (09:59)
[2019-12-07] MEDS: Normal Saline Flush 10 ML SYR IVP (09:59)
== END 2019-12-30 23:59 | disposition home or self-care (01) ==
LOC: INF 03:24
PROVIDERS: PCP Family Medicine; Visit Provider Internal Medicine
DX: M05.79 Rheumatoid arthritis with rheumatoid factor of multiple sites without organ or systems involvement (principal)
CPT/HCPCS: 36415; 80053; 96365; 85025; 86140; J0129

== ENCOUNTER 2020-01-06 02:00 | Outpatient (RCR) | payer MEDICARE, BC, SELFPAY ==
[2020-01-06] MEDS: ABATACEPT 750 MG in Normal Saline 100 ML 200 MG IVPB (09:40)
[2020-01-06] MEDS: Normal Saline Flush 10 ML SYR IVP (09:41)
== END 2020-01-30 23:59 | disposition home or self-care (01) ==
LOC: INF 02:00
PROVIDERS: PCP Family Medicine; Visit Provider Internal Medicine
DX: M05.79 Rheumatoid arthritis with rheumatoid factor of multiple sites without organ or systems involvement (principal)
CPT/HCPCS: 96365; J0129

== ENCOUNTER → 2020-02-01 15:12 | Outpatient (BNVA) | payer MEDICARE, BC, SELFPAY | PROVIDERS: PCP Family Medicine; Referring Provider Family Medicine; Visit Provider Internal Medicine Cardiovascular Disease | DX: I10 Essential (primary) hypertension (principal); I35.0 Nonrheumatic aortic (valve) stenosis; E78.5 Hyperlipidemia, unspecified; E11.9 Type 2 diabetes mellitus without complications | CPT/HCPCS: 99212; 99441 ==

== ENCOUNTER 2020-02-03 03:02 | Outpatient (RCR) | payer MEDICARE, BC, SELFPAY ==
[2020-02-03] MEDS: ABATACEPT 750 MG in Normal Saline 100 ML 200 MG IVPB (09:43)
[2020-02-03] MEDS: Normal Saline Flush 10 ML SYR IVP (09:43)
== END 2020-02-29 23:59 | disposition home or self-care (01) ==
LOC: INF 03:02
PROVIDERS: PCP Family Medicine; Visit Provider Internal Medicine
DX: M05.79 Rheumatoid arthritis with rheumatoid factor of multiple sites without organ or systems involvement (principal)
CPT/HCPCS: 96365; J0129

== ENCOUNTER 2020-02-07 08:43 | Outpatient (REF) | payer MEDICARE, BC, SELFPAY ==
[2020-02-07 21:25] LABS: HCT 46.4 % (36.0-46.0); HGB 15.2 g/dL (12.0-15.5); Mean Corp. HGB Concentration 32.8 g/dL (32.0-36.0); Mean Corpuscular Hemoglobin 29.1 pg (27.0-33.0); Mean Corpuscular Volume 88.7 fL (80-95); Mean Platelet Volume 10.1 fL (8.0-11.0); Platelet Count 251 x1000/uL (130-400); RBC 5.23 m/cumm (4.00-5.20); RBC Distribution Width 12.8 % (11.7-14.6); White Blood Cell Count 5.44 k/cumm (4.4-10.8)
[2020-02-07 21:33] LABS: ALT 27 U/L (14-59); AST 20 U/L (15-37); Albumin 3.8 g/dL (3.4-5.0); Alkaline Phosphatase 78 U/L (46-116); Anion Gap 8.5 mmol/L (3-11); BUN 18 mg/dL (7-18); Bilirubin, Total 0.8 mg/dL (0.2-1.0); CO2 31.5 mmol/L (21.0-32.0); CREATININE 0.77 mg/dL (0.55-1.02); Calcium 8.7 mg/dL (8.5-10.1); Calculated LDL 191 mg/dL (<100); Chloride 101 mmol/L (98-107); Cholesterol 256 mg/dL (<200); Glucose 153 mg/dL (74-106); HDL Cholesterol 54 mg/dL (40-60); Potassium 3.6 mmol/L (3.5-5.1); Sodium 141 mmol/L (136-145); Total Protein 6.9 g/dL (6.4-8.2); Triglyceride 57 mg/dL (<150)
[2020-02-07 21:58] LABS: Hemoglobin A1C 6.7 % (3.8-5.6)
== END 2020-02-07 09:03 ==
LOC: NCHCN 08:43
PROVIDERS: PCP Family Medicine; Visit Provider Family Medicine
DX: E11.9 Type 2 diabetes mellitus without complications (principal); E78.5 Hyperlipidemia, unspecified; I10 Essential (primary) hypertension
CPT/HCPCS: 80053; 80061; 85027; 83036

== ENCOUNTER 2020-03-29 02:17 | Outpatient (RCR) | payer MEDICARE, BC, SELFPAY ==
[2020-03-01] MEDS: ABATACEPT 750 MG in Normal Saline 100 ML 200 MG IVPB (10:12)
[2020-03-01] MEDS: Normal Saline Flush 10 ML SYR IVP (11:08)
[2020-03-29] MEDS: ABATACEPT 750 MG in Normal Saline 100 ML 200 MG IVPB (09:59)
[2020-03-29] MEDS: Normal Saline Flush 10 ML SYR IVP (09:59)
== END 2020-03-31 23:59 | disposition home or self-care (01) ==
LOC: INF 02:17
PROVIDERS: PCP Family Medicine; Visit Provider Internal Medicine
DX: M05.79 Rheumatoid arthritis with rheumatoid factor of multiple sites without organ or systems involvement (principal)
CPT/HCPCS: 96365; J0129

== ENCOUNTER 2020-04-26 01:39 | Outpatient (RCR) | payer MEDICARE, BC, SELFPAY ==
[2020-04-26] MEDS: ABATACEPT 750 MG in Normal Saline 100 ML 200 MG IVPB (10:23)
[2020-04-26] MEDS: Normal Saline Flush 10 ML SYR IVP (10:24)
== END 2020-05-01 23:59 | disposition home or self-care (01) ==
LOC: INF 01:39
PROVIDERS: PCP Family Medicine; Visit Provider Internal Medicine
DX: M06.9 Rheumatoid arthritis, unspecified (principal)
CPT/HCPCS: 96365; J0129

== ENCOUNTER 2020-05-24 01:47 | Outpatient (RCR) | payer MEDICARE, BC, SELFPAY ==
[2020-05-24] MEDS: Normal Saline Flush 10 ML SYR IVP ×2 (08:35→09:30)
[2020-05-24] MEDS: ABATACEPT 750 MG in Normal Saline 100 ML 200 MG IVPB (09:30)
== END 2020-05-31 23:59 | disposition home or self-care (01) ==
LOC: INF 01:47
PROVIDERS: PCP Family Medicine; Visit Provider Internal Medicine
DX: M06.9 Rheumatoid arthritis, unspecified (principal)
CPT/HCPCS: 96365; J0129

== ENCOUNTER 2020-06-13 01:30 | Outpatient (CLI) | payer MEDICARE, BC, SELFPAY ==
[2020-06-13 09:06] LABS: HCT 46.5 % (36.0-46.0); HGB 15.5 g/dL (11.2-15.7); MCH 29.5 pg (27.0-33.0); MCHC 33.3 % (32.0-36.0); MCV 88.4 fL (80-95); MPV 9.4 fL (8.0-11.0); Platelet Count 234 10^3/uL (130-400); RBC 5.26 10^6/uL (3.93-5.22); RDW 12.3 % (11.7-14.6); RDW-SD 39.8 fL; WBC 6.19 10^3/uL (4.4-10.8)
[2020-06-13 10:14] LABS: ALT 24 U/L (14-59); AST 23 U/L (15-37); Albumin 3.6 g/dL (3.4-5.0); Alkaline Phosphatase 75 U/L (46-116); Anion Gap 6.5 mmol/L (3-11); BUN 20 mg/dL (7-18); Bilirubin, Total 0.8 mg/dL (0.2-1.0); CO2 34.5 mmol/L (21.0-32.0); CREATININE 0.84 mg/dL (0.55-1.02); Calcium 9.3 mg/dL (8.5-10.1); Chloride 99 mmol/L (98-107); Glucose 172 mg/dL (74-106); Potassium 3.6 mmol/L (3.5-5.1); Sodium 140 mmol/L (136-145); Total Protein 6.7 g/dL (6.4-8.2)
== END 2020-06-13 01:50 ==
PROVIDERS: PCP Family Medicine; Visit Provider Internal Medicine Rheumatology
DX: M05.79 Rheumatoid arthritis with rheumatoid factor of multiple sites without organ or systems involvement (principal); Z79.899 Other long term (current) drug therapy
CPT/HCPCS: 36415; 80053; 85027

== ENCOUNTER 2020-06-21 01:09 | Outpatient (RCR) | payer MEDICARE, BC, SELFPAY ==
[2020-06-21] MEDS: Normal Saline Flush 10 ML SYR IVP (08:41)
[2020-06-21 09:04] LABS: C-Reactive Protein 0.25 mg/dL (0.0-0.3)
[2020-06-21 09:09] LABS: Hemoglobin A1C 6.9 % (<5.7)
[2020-06-21] MEDS: ABATACEPT 750 MG in Normal Saline 100 ML 200 MG IVPB (09:17)
== END 2020-07-01 23:59 | disposition home or self-care (01) ==
LOC: INF 01:09
PROVIDERS: Internal Medicine Rheumatology; PCP Family Medicine; Visit Provider Internal Medicine
DX: M05.79 Rheumatoid arthritis with rheumatoid factor of multiple sites without organ or systems involvement (principal); E11.9 Type 2 diabetes mellitus without complications
CPT/HCPCS: 36415; 96365; 83036; 86140; J0129

== ENCOUNTER 2020-07-19 01:31 | Outpatient (RCR) | payer MEDICARE, BC, SELFPAY ==
[2020-07-19] MEDS: ABATACEPT 750 MG in Normal Saline 100 ML 200 MG IVPB (09:06)
[2020-07-19] MEDS: Normal Saline Flush 10 ML SYR IVP (09:07)
== END 2020-07-31 23:59 | disposition home or self-care (01) ==
LOC: INF 01:31
PROVIDERS: PCP Family Medicine; Visit Provider Internal Medicine
DX: M06.9 Rheumatoid arthritis, unspecified (principal)
CPT/HCPCS: 96365; J0129

== ENCOUNTER 2020-08-16 01:13 | Outpatient (RCR) | payer MEDICARE, BC, SELFPAY ==
[2020-08-16] MEDS: ABATACEPT 750 MG in Normal Saline 100 ML 200 MG IVPB (10:24)
[2020-08-16] MEDS: Normal Saline Flush 10 ML SYR IVP (10:25)
== END 2020-08-31 23:59 | disposition home or self-care (01) ==
LOC: INF 01:13
PROVIDERS: PCP Family Medicine; Visit Provider Internal Medicine
DX: M06.9 Rheumatoid arthritis, unspecified (principal)
CPT/HCPCS: 96365; J0129

== ENCOUNTER → 2020-08-31 10:35 | Outpatient (BNVA) | payer MEDICARE, BC, SELFPAY | PROVIDERS: PCP Family Medicine; Referring Provider Family Medicine; Visit Provider Internal Medicine Cardiovascular Disease | DX: I10 Essential (primary) hypertension (principal); I35.0 Nonrheumatic aortic (valve) stenosis | CPT/HCPCS: 99212; 99441 ==

== ENCOUNTER 2020-09-13 08:30 | Outpatient (RCR) | payer MEDICARE, BC, SELFPAY ==
[2020-09-13 08:45] LABS: Abs Immature Grans 0.02 10^3/uL (0.0-0.06); Absolute Basophil Count 0.07 10^3/uL (0.0-0.2); Absolute Eosinophil Count 0.73 10^3/uL (0.0-0.7); Absolute Lymphocyte Count 2.22 10^3/uL (1.2-3.4); Eosinophils % 10.7; HCT 46.4 % (36.0-46.0); HGB 15.7 g/dL (11.2-15.7); Immature Grans % 0.3; Lymphocytes % 32.5; MCH 29.6 pg (27.0-33.0); MCHC 33.8 % (32.0-36.0); MCV 87.4 fL (80-95); MPV 9.8 fL (8.0-11.0); Monocytes % 10.2; Neutrophils % 45.3; Nucleated RBC 0 %; Platelet Count 255 10^3/uL (130-400); RBC 5.31 10^6/uL (3.93-5.22); RDW 12.4 % (11.7-14.6); RDW-SD 39.7 fL; WBC 6.84 10^3/uL (4.4-10.8)
[2020-09-13 09:00] LABS: ALT 30 U/L (14-59); AST 25 U/L (15-37); Albumin 3.5 g/dL (3.4-5.0); Alkaline Phosphatase 82 U/L (46-116); BUN 20 mg/dL (7-18); Bilirubin, Total 0.9 mg/dL (0.2-1.0); C-Reactive Protein 0.34 mg/dL (0.0-0.3); CREATININE 0.99 mg/dL (0.55-1.02); Calcium 9.2 mg/dL (8.5-10.1); Chloride 97 mmol/L (98-107); Estimated GFR 55.78 (mL/min/1.73m2); Glucose 265 mg/dL (74-106); Potassium 3.1 mmol/L (3.5-5.1); Sodium 136 mmol/L (136-145); Total Protein 7.3 g/dL (6.4-8.2)
[2020-09-13] MEDS: Normal Saline Flush 10 ML SYR IVP (09:02)
[2020-09-13] MEDS: ABATACEPT 750 MG in Normal Saline 100 ML 200 MG IVPB (09:02)
== END 2020-10-01 23:59 | disposition home or self-care (01) ==
LOC: INF 08:30
PROVIDERS: Internal Medicine Rheumatology; PCP Family Medicine; Visit Provider Internal Medicine
DX: M05.79 Rheumatoid arthritis with rheumatoid factor of multiple sites without organ or systems involvement (principal)
CPT/HCPCS: 36415; 80053; 96365; 85025; 86140; J0129

== ENCOUNTER 2020-10-11 02:41 | Outpatient (RCR) | payer MEDICARE, BC, SELFPAY ==
[2020-10-11] MEDS: ABATACEPT 750 MG in Normal Saline 100 ML 200 MG IVPB (09:10)
[2020-10-11] MEDS: Normal Saline Flush 10 ML SYR IVP (09:11)
== END 2020-10-29 23:59 | disposition home or self-care (01) ==
LOC: INF 02:41
PROVIDERS: PCP Family Medicine; Visit Provider Nurse Practitioner Acute Care
DX: M05.79 Rheumatoid arthritis with rheumatoid factor of multiple sites without organ or systems involvement (principal)
CPT/HCPCS: 96365; J0129

== ENCOUNTER 2020-11-08 03:10 | Outpatient (RCR) | payer MEDICARE, BC, SELFPAY ==
[2020-11-08] MEDS: Normal Saline Flush 10 ML SYR IVP (09:09)
[2020-11-08] MEDS: ABATACEPT 750 MG in Normal Saline 100 ML 200 MG IVPB (09:09)
== END 2020-11-29 23:59 | disposition home or self-care (01) ==
LOC: INF 03:10
PROVIDERS: PCP Family Medicine; Visit Provider Nurse Practitioner Acute Care
DX: M05.79 Rheumatoid arthritis with rheumatoid factor of multiple sites without organ or systems involvement (principal)
CPT/HCPCS: 96365; J0129

== ENCOUNTER 2020-12-06 02:16 | Outpatient (RCR) | payer MEDICARE, BC, SELFPAY ==
[2020-12-06] MEDS: ABATACEPT 750 MG in Normal Saline 100 ML 200 MG IVPB (09:15)
[2020-12-06] MEDS: Normal Saline Flush 10 ML SYR IVP (09:18)
== END 2020-12-29 23:59 | disposition home or self-care (01) ==
LOC: INF 02:16
PROVIDERS: PCP Family Medicine; Visit Provider Nurse Practitioner Acute Care
DX: M05.79 Rheumatoid arthritis with rheumatoid factor of multiple sites without organ or systems involvement (principal)
CPT/HCPCS: 96365; J0129

== ENCOUNTER 2021-01-04 08:00 | Outpatient (RCR) | payer MEDICARE, BC, SELFPAY ==
[2021-01-04] MEDS: Normal Saline Flush 10 ML SYR IVP (08:45)
[2021-01-04] MEDS: ABATACEPT 750 MG in Normal Saline 100 ML 200 MG IVPB (09:05)
[2021-01-04 09:10] LABS: Abs Immature Grans 0.01 10^3/uL (0.0-0.06); Absolute Basophil Count 0.04 10^3/uL (0.0-0.2); Absolute Eosinophil Count 0.89 10^3/uL (0.0-0.7); Absolute Lymphocyte Count 1.75 10^3/uL (1.2-3.4); Absolute Monocyte Count 0.67 10^3/uL (0.1-0.8); Absolute Neutrophil Count 2.97 10^3/uL (1.2-6.7); Basophils % 0.6; Eosinophils % 14.1; HCT 46.5 % (36.0-46.0); HGB 15.8 g/dL (11.2-15.7); Immature Grans % 0.2; Lymphocytes % 27.6; MCH 30.1 pg (27.0-33.0); MCV 88.6 fL (80-95); MPV 9.9 fL (8.0-11.0); Monocytes % 10.6; Neutrophils % 46.9; Nucleated RBC 0 %; Platelet Count 243 10^3/uL (130-400); RBC 5.25 10^6/uL (3.93-5.22); RDW 12.3 % (11.7-14.6); RDW-SD 40.1 fL; WBC 6.33 10^3/uL (4.4-10.8)
[2021-01-04 09:56] LABS: ALT 26 U/L (14-59); AST 19 U/L (15-37); Albumin 3.7 g/dL (3.4-5.0); Alkaline Phosphatase 75 U/L (46-116); Anion Gap 13.1 mmol/L (3-11); BUN 20 mg/dL (7-18); Bilirubin, Total 0.9 mg/dL (0.2-1.0); C-Reactive Protein 0.18 mg/dL (0.0-0.3); CO2 25.9 mmol/L (21.0-32.0); Calcium 9.4 mg/dL (8.5-10.1); Chloride 100 mmol/L (98-107); Estimated GFR 55.14 (mL/min/1.73m2); Glucose 160 mg/dL (74-106); Sodium 139 mmol/L (136-145); Total Protein 7.5 g/dL (6.4-8.2)
[2021-01-05 17:02] LABS: Hemoglobin A1C 7.2 % (<5.7)
== END 2021-01-29 23:59 | disposition home or self-care (01) ==
LOC: INF 08:00
PROVIDERS: Internal Medicine Rheumatology; PCP Family Medicine; Visit Provider Nurse Practitioner Acute Care
DX: M05.79 Rheumatoid arthritis with rheumatoid factor of multiple sites without organ or systems involvement (principal); E11.9 Type 2 diabetes mellitus without complications
CPT/HCPCS: 36415; 80053; 96365; 83036; 85025; 86140; J0129

== ENCOUNTER 2021-01-25 09:32 | Outpatient (REF) | payer MEDICARE, BC, SELFPAY ==
[2021-01-25 13:23] LABS: Magnesium 1.9 mg/dL (1.8-2.4); Potassium 4.1 mmol/L (3.5-5.1)
== END 2021-01-25 09:33 | disposition home or self-care (01) ==
LOC: NCHCN 09:32
PROVIDERS: PCP Family Medicine; Visit Provider Family Medicine
DX: E87.6 Hypokalemia (principal); I10 Essential (primary) hypertension
CPT/HCPCS: 83735; 84132

== ENCOUNTER 2021-02-09 07:44 | Observation (INO) | payer MEDICARE, BC, SELFPAY ==
[2021-02-09] VITALS (46 sets, daily range): BP systolic 131–218; BP diastolic 59–94; PULSE 68–90; RESP 10–35; TEMP 36.6–37.2; O2SAT 95–98
--- NOTE | 2021-02-09 07:45 | RT.EKG_ITS ---
APPROVED REPORT Exam: Resting ECG Reason for Exam: sob Patient Location: E HR:81 bpm ECG Measurements Heart Rate 81 AXIS WY 139 P 40 QRSd 95 QRS 14 QT 400 T 25 QTc 464 Conclusion Sinus rhythm...normal P axis, V-rate 60- 99 Probable left atrial enlargement...P >50mS, <-0.10mV V1
--- NOTE | 2021-02-09 08:15 | DI.RAD_ITS ---
Exam(s) XR CHEST 2V PA LATERAL EXAM: XR CHEST 2V PA LATERAL CLINICAL HISTORY: shortness of breath, aortic stenosis, weight gait, TECHNIQUE: 2D digital imaging was performed. COMPARISON: No exams were available for comparison FINDINGS: MEDIASTINUM: Normal. HEART: Normal. PULMONARY VASCULATURE: There is prominence of the pulmonary vasculature. LUNGS: Increased interstitial markings are present throughout the lungs. There is flattening of the hemidiaphragms raising the question of COPD. PLEURAL SPACE: No pleural effusion or pneumothorax. BONE:Within normal limits for the patient's age. OTHER FINDINGS:Normal. IMPRESSION: Prominent pulmonary vasculature and interstitial markings in the lungs. Findings raise a question of pulmonary edema/fluid overload. Please correlate clinically. The possibility of pneumonia, particu larly in the left lung base, cannot be excluded. DATA REPOSITORY: RADIATION DOSE DELIVERED:
[2021-02-09 08:18] LABS: Abs Immature Grans 0.02 10^3/uL (0.0-0.06); Absolute Basophil Count 0.04 10^3/uL (0.0-0.2); Absolute Eosinophil Count 0.62 10^3/uL (0.0-0.7); Absolute Monocyte Count 0.54 10^3/uL (0.1-0.8); Absolute Neutrophil Count 2.61 10^3/uL (1.2-6.7); Basophils % 0.7; Eosinophils % 11.4; HCT 43.1 % (36.0-46.0); HGB 14.1 g/dL (11.2-15.7); Immature Grans % 0.4; Lymphocytes % 29.5; MCH 29.4 pg (27.0-33.0); MCHC 32.7 % (32.0-36.0); MPV 9.8 fL (8.0-11.0); Monocytes % 9.9; Neutrophils % 48.1; Nucleated RBC 0 %; Platelet Count 219 10^3/uL (130-400); RBC 4.79 10^6/uL (3.93-5.22); RDW 12.4 % (11.7-14.6); RDW-SD 41.1 fL; WBC 5.43 10^3/uL (4.4-10.8)
--- NOTE | 2021-02-09 08:27 | W.ED.GENAD ---
Discharge Plan Discharge Details Chief Complaint: SOB Primary Care Provider: Ivette Escamilla ED Provider: Hannah Julian Home Meds and New Rx's Prescriptions: No Action lorazepam 0.5 mg tablet 0.5 mg PO QHS PRNRF: 0 Orencia (with maltose) 250 mg recon soln 250 mg IV Q4W RF: 0 bromelains 500 mg tablet 500 mg PO DAILY RF: 0 biotin 5 mg capsule 5 mg PO DAILY RF: 0 ergocalciferol (vitamin D2) 400 unit tablet 1,000 unit PO DAILY RF: 0 hydroxyzine HCl 25 mg tablet 50 mg PO BID PRNRF: 0 ibuprofen [Advil] 200 mg tablet 400 mg PO Q6H PRNRF: 0 losartan 50 mg tablet 50 mg PO DAILY RF: 0 aspirin [Aspir-81] 81 mg Tablet,Delayed Release (Dr/Ec) 81 mg PO DAILY RF: 0 vitamin B complex Tablet 1 tab PO DAILY RF: 0 albuterol sulfate [ProAir HFA] 90 mcg/actuation Hfa Aerosol Inhaler 1 - 2 puff INHALATION QID PRNRF: 0 Medical Decision Making Patient with BNP of 2200, volume overload with pulmonary edema on chest x-ray cardiology interpretation of my review-none Given 20 of Lasix and 1000 mL of output Mckinley points for sublingual nitro without change in symptoms, no additional nitroglycerin ordered Initial troponin and EKG negative, repeat EKG negative, patient without chest pain, however on repeat troponin, patient did have an elevated troponin level, she has no chest pain at this time I suspect this is strain from CHF exacerbation, she will be admitted to the hospital Case discussed with Dr. Barajas, hospitalist, willing to accept patient Magnesium noted to be 1.6, she was given oral magnesium Patient is alert, oriented, of decisional capacity Reviewed prior echocardiogram from 2019 that showed ejection fraction of 65% with mild to moderate aortic stenosis Case discussed with gas utility worker, Dr. Browning and initial plan was to send patient home again clinical advice that she had a initial negative troponin, however given her elevated troponin, she is agreeable to stay in the hospital at this time and I think the best plan She was given aspirin initially Differential Diagnosis Differential Diagnosis: CHF, pulmonary embolism, aortic stenosis, COPD Medical Records Medical records reviewed: Yes I reviewed the patient's medical records. Lab Data Lab results reviewed: Yes I reviewed the patient's lab results. HPI General Mode of arrival: ambulatory. Date/Time Provider Initiated Documentation: 02/09/21 08:02. Limitations to Documentation: no limitations. Information obtained by: patient. HPI Narrative: This 70-year-old female with history of rheumatoid arthritis, hypertension, hyperlipidemia, aortic stenosis presents with reports of chest pressure. Patient states she feels like there is a band around her chest. Patient states that she has been short of breath with exertion. She had approximately 8 pound weight gain in the past 3 days for patient. She denies any fever or chills. She denies any recent flights, surgeries, long drives. She denies any sick contacts or cough. She states that she is experiencing some orthopnea. She denies any new calf pain or swelling. She states for the past 3 weeks she has felt like her bra is too tight . She had an echocardiogram 2 years ago but denies having a stress test. She denies any history of coronary artery disease known to her. She does not smoke, drink, use illicit drugs. Related Data Home Medications Medication Instructions Recorded Confirmed abatacept (with maltose) 250 mg 250 mg IV Q4W each 07/27/19 02/09/21 intravenous solution biotin 5 mg capsule 5 mg PO DAILY 07/27/19 02/09/21 bromelains 500 mg tablet 500 mg PO DAILY tab 07/27/19 02/01/20 ergocalciferol (vitamin D2) 10 mcg 1,000 unit PO DAILY 07/27/19 02/09/21 (400 unit) tablet hydroxyzine HCl 25 mg tablet 50 mg PO BID PRN 07/27/19 02/09/21 ibuprofen 200 mg tablet 400 mg PO Q6H PRN tab 07/27/19 02/09/21 lorazepam 0.5 mg tablet 0.5 mg PO QHS PRN 07/27/19 02/09/21 albuterol sulfate [ProAir HFA] 1 - 2 puff INHALATION QID PRN 02/09/21 02/09/21 aspirin [Aspir-81] 81 mg PO DAILY 02/09/21 02/09/21 losartan 50 mg PO DAILY 02/09/21 02/09/21 vitamin B complex 1 tab PO DAILY 02/09/21 02/09/21 Allergies Allergy/AdvReac Type Severity Reaction Status Date / Time Penicillins Allergy Unknown Unverified 08/31/20 09:56 adalimumab [From Humira] Allergy Unverified 08/31/20 09:56 etanercept [From Enbrel] Allergy Unverified 08/31/20 09:56 Sulfa (Sulfonamide Allergy Unverified 08/31/20 09:56 Antibiotics) General Stated Complaint: SOB OLAF: 2 Review of Systems Narrative: Review of systems obtained x7 aside from where indicated in HPI [facility], [facility] Medical History (Updated 02/09/21 @ 14:23 by Antonia Olmos NP) Alcohol abuse Aortic stenosis, moderate HTN (hypertension) Hyperglycemia Left ventricular hypertrophy Nonrheumatic aortic valve stenosis Osteoarthritis Palpitations Rheumatoid arthritis Type 2 diabetes mellitus Surgical History Status post left foot surgery Status post right foot surgery Social History Smoking/Tobacco Use Status: Never Smoking risk assessment performed?: Yes Alcohol Intake: current Alcohol Intake frequency: holidays/special occasions only Drug use: Never Substance use type: does not use Do you feel safe at home: Yes Do you feel safe in your relationship?: Yes Exam Const General: cooperative Orientation: alert and oriented x3 Chest Chest: normal inspection of the chest Resp Other: Crackles throughout Cardio Rate: regular rate Rhythm: regular rhythm Other: Murmur GI Other: Nontender abdominal exam Skin General skin exam: no rashes or lesions noted Neuro General: patient alert and patient oriented x3 Extrem Other: 1+ edema bilateral lower extremities, nontender to palpation Course Vital Signs Vital signs: Vital Signs Temperature 36.6 C 02/09/21 07:52 Pulse 86 02/09/21 07:52 Respiratory Rate 15 02/09/21 07:52 Blood Pressure 218/94 H 02/09/21 07:52 Pulse Oximetry 98 02/09/21 07:52 Temperature 36.6 C 02/09/21 07:52 Temperature Source Temporal Artery Scan 02/09/21 07:52 Pulse 85 02/09/21 08:16 Pulse 84 02/09/21 08:16 Respiratory Rate 21 02/09/21 08:16 Respiratory Effort 02/09/21 08:05 Respiratory Depth Normal 02/09/21 08:05 Respiratory Pattern Normal 02/09/21 08:05 Blood Pressure 194/86 H 02/09/21 08:16 Blood Pressure Mean 114 02/09/21 08:16 Blood Pressure Position Supine 02/09/21 07:52 Pulse Oximetry 98 02/09/21 08:16 Oxygen Delivery Method Room Air 02/09/21 07:52 Oxygen Flow Rate 0 02/09/21 07:52 Pain Level 2 02/09/21 07:52 Lab/Test Results Lab/Test Results: Laboratory Tests Range/Units 02/09/21 08:00 WBC (4.4-10.8) 10^3/uL 5.43 RBC (3.93-5.22) 10^6/uL 4.79 Hgb (11.2-15.7) g/dL 14.1 Hct (36.0-46.0) % 43.1 MCV (80-95) fL 90.0 MCH (27.0-33.0) pg 29.4 MCHC (32.0-36.0) % 32.7 RDW (11.7-14.6) % 12.4 Plt Count (130-400) 10^3/uL 219 MPV (8.0-11.0) fL 9.8 Immature Gran % 0.4 Neutrophils % 48.1 Lymphocytes % 29.5 Monocytes % 9.9 Eosinophils % 11.4 Basophils % 0.7 Nucleated RBC % % 0 Absolute Neutrophils (1.2-6.7) 10^3/uL 2.61 Absolute Lymphocytes (1.2-3.4) 10^3/uL 1.60 Absolute Monocytes (0.1-0.8) 10^3/uL 0.54 Absolute Eosinophils (0.0-0.7) 10^3/uL 0.62 Absolute Basophils (0.0-0.2) 10^3/uL 0.04 Critical Care Time Critical Care Time Critical Care Time: Yes Total Critical Care Time: 35 Attestation: IV Lasix, aspirin, telemetry monitoring, hospitalist admission for CHF exacerbation, troponin elevation
[2021-02-09] MEDS: Aspirin 81 MG CHEW 324 MG CH (08:35)
[2021-02-09] MEDS: nitroGLYcerin 0.4 MG TAB SL (08:38)
[2021-02-09 08:48] LABS: ALT 32 U/L (14-59); AST 29 U/L (15-37); Albumin 3.4 g/dL (3.4-5.0); Alkaline Phosphatase 71 U/L (46-116); Anion Gap 9.1 mmol/L (3-11); BUN 22 mg/dL (7-18); Bilirubin, Total 0.6 mg/dL (0.2-1.0); CO2 26.9 mmol/L (21.0-32.0); CREATININE 0.9 mg/dL (0.55-1.02); Calcium 8.7 mg/dL (8.5-10.1); Chloride 107 mmol/L (98-107); Glucose 168 mg/dL (74-106); Magnesium 1.6 mg/dL (1.8-2.4); Potassium 3.5 mmol/L (3.5-5.1); Sodium 143 mmol/L (136-145); Total Protein 6.8 g/dL (6.4-8.2); Troponin I 0.05 ng/mL (<0.06)
[2021-02-09 09:24] LABS: D-Dimer 460 ng/mlFEU (<500)
[2021-02-09] MEDS: Furosemide 20 MG/2 ML VIAL IVP (09:36)
[2021-02-09] MEDS: Normal Saline Flush 10 ML SYR IVP (09:38)
--- NOTE | 2021-02-09 10:00 | RT.EKG_ITS ---
APPROVED REPORT Exam: Resting ECG Reason for Exam: chest pain Patient Location: E HR:73 bpm ECG Measurements Heart Rate 73 AXIS NM 145 P 45 QRSd 91 QRS 11 QT 436 T 22 QTc 481 Conclusion Sinus rhythm...normal P axis, V-rate 60- 99
[2021-02-09 10:43] LABS: NT-proBNP 2090 pg/mL (<300); Troponin I < 0.05 ng/mL (<0.06)
[2021-02-09] MEDS: Magnesium Gluconate 500 MG TAB PO (11:02)
--- NOTE | 2021-02-09 13:58 | W.PM.HP.N ---
Date of service: 02/09/21 Time of Service: 13:58 Assessment and Plan Assessment and plan (1) Elevated troponin: Status: Acute Assessment and plan: referred to observation on telemetry cycle troponins, no acute ST segment changes on telemetry insetting of CHF, possibly d/t stopping diuretics one week ago followed by cardiology. (2) Congestive heart failure: Status: Chronic Assessment and plan: diuresed in the ED with lasix 20 mg IVP about 1 liter with resolution of her symptoms. her second troponin elevated at 0.1 thought to be d/t heart strain from CHF but consider ACS in setting of DM, female, etc. she received asa in the ED. (3) Aortic stenosis, moderate: Status: Acute Assessment and plan: Echo in 2018 will repeat when available. has a follow up echocardiogram scheduled in March. will try to move up but prefers after this . (4) Type 2 diabetes mellitus: Status: Chronic Assessment and plan: diet control only with A1C of 7.2, did not tolerated metformin. diabetic diet diabetes education. will not check sugars while hospitalized defer to outpatient provider. (5) HTN (hypertension): Status: Chronic Assessment and plan: blood pressure stable, continue losartan, monitor and adjust as needed her triamterene was discontinued by cardiology a week ago for hypotension. previous to that her HCTZ was discontinued d/t mild hypokalemia. patient will be started back on HCTZ with potassium supplementation. monitor blood pressure closely (6) Hyperlipidemia: Status: Acute Assessment and plan: has declined statin in the past. (7) Rheumatoid arthritis: Status: Chronic Assessment and plan: takes abatacept every 4 weeks. (8) Insomnia: Status: Acute Assessment and plan: takes lorazepam at home, will give 1 mg while hospitalized. (9) Discharge planning issues: Status: Acute Assessment and plan: anticipate discharge to home tomorrow. no services \ discussed with DR Villasenor History of Present Illness History of Present Illness Chief Complaint: shortness of breath Review of Systems Constitutional Constitutional: Denies fever(s), Reports lethargy and Reports weight gain Eyes Eyes: Denies change in vision ENT Ears, Nose, Mouth, and Throat: Denies vertigo and Denies dizziness Cardiovascular Cardiovascular: Denies chest pain, Reports dyspnea and Reports dyspnea on exertion Respiratory Respiratory: Denies chest congestion, Reports dyspnea and Reports dyspnea on exertion Gastrointestinal Gastrointestinal: Denies abdominal pain and Denies nausea Musculoskeletal Musculoskeletal: Denies back pain Integumentary/Breasts Skin/Breast: Denies rash Neurologic Neurologic: Denies vertigo and Denies dizziness [facility] Medical History (Updated 02/09/21 @ 16:59 by Antonia Olmos NP) Alcohol abuse Aortic stenosis, moderate HTN (hypertension) Hyperglycemia Left ventricular hypertrophy Nonrheumatic aortic valve stenosis Osteoarthritis Palpitations Rheumatoid arthritis Type 2 diabetes mellitus Surgical History Status post left foot surgery Status post right foot surgery Social History Smoking/Tobacco Use Status: Never Smoking risk assessment performed?: Yes Alcohol Intake: current Alcohol Intake frequency: holidays/special occasions only Drug use: Never Substance use type: does not use Do you feel safe at home: Yes Do you feel safe in your relationship?: Yes Meds Allergies and Home Medications Allergies Allergy/AdvReac Type Severity Reaction Status Date / Time Penicillins Allergy Unknown Unverified 08/31/20 09:56 adalimumab [From Humira] Allergy Unverified 08/31/20 09:56 etanercept [From Enbrel] Allergy Unverified 08/31/20 09:56 Sulfa (Sulfonamide Allergy Unverified 08/31/20 09:56 Antibiotics) Home Medications Medication Instructions Recorded Confirmed Type abatacept (with maltose) 250 mg 250 mg IV Q4W each 07/27/19 02/09/21 History intravenous solution biotin 5 mg capsule 5 mg PO DAILY 07/27/19 02/09/21 History bromelains 500 mg tablet 500 mg PO DAILY tab 07/27/19 02/01/20 History ergocalciferol (vitamin D2) 10 mcg 1,000 unit PO DAILY 07/27/19 02/09/21 History (400 unit) tablet hydroxyzine HCl 25 mg tablet 50 mg PO BID PRN 07/27/19 02/09/21 History ibuprofen 200 mg tablet 400 mg PO Q6H PRN tab 07/27/19 02/09/21 History lorazepam 0.5 mg tablet 0.5 mg PO QHS PRN 07/27/19 02/09/21 History albuterol sulfate [ProAir HFA] 1 - 2 puff INHALATION QID PRN 02/09/21 02/09/21 History aspirin [Aspir-81] 81 mg PO DAILY 02/09/21 02/09/21 History losartan 50 mg PO DAILY 02/09/21 02/09/21 History vitamin B complex 1 tab PO DAILY 02/09/21 02/09/21 History Exam Const General: cooperative, healthy appearing, comfortable and no acute distress Nutritional Appearance: overweight Orientation: alert, awake and oriented x3 HENMT Head: normal to inspection, normocephalic and atraumatic Mouth: oral mucosae normal Chest Chest: normal inspection of the chest Resp Effort & Inspection: normal respiratory effort and able to speak in complete sentences Auscultation: rales (fine in base right > left), no rhonchi and no wheezes Cardio Heart Sounds: murmur systolic IV/ and at the right sternal border (loudest) GI Inspection: normal to inspection Palpation: soft Auscultation: normal bowel sounds Skin General skin exam: no rashes or lesions noted Neuro General: patient alert, patient awake, patient oriented x3 and no focal motor deficits Extrem General: normal to inspection and edema Laterality: bilateral Results Labs Result diagrams: 02/09/21 08:00 02/09/21 08:00 Labs: Laboratory Results - last 24 hr 02/09/21 02/09/21 02/09/21 08:00 08:00 08:00 WBC 5.43 RBC 4.79 Hgb 14.1 Hct 43.1 MCV 90.0 MCH 29.4 MCHC 32.7 RDW 12.4 Plt Count 219 MPV 9.8 Immature Gran % 0.4 Neutrophils % 48.1 Lymphocytes % 29.5 Monocytes % 9.9 Eosinophils % 11.4 Basophils % 0.7 Nucleated RBC % 0 Absolute Neutrophils 2.61 Absolute Lymphocytes 1.60 Absolute Monocytes 0.54 Absolute Eosinophils 0.62 Absolute Basophils 0.04 D-Dimer Sodium 143 Potassium 3.5 Chloride 107 Carbon Dioxide 26.9 Anion Gap 9.1 BUN 22 H Creatinine 0.9 Estimated GFR/1.73 m2 >= 60.00 Glucose 168 H Calcium 8.7 Magnesium 1.6 L Total Bilirubin 0.6 AST 29 ALT 32 Alkaline Phosphatase 71 Troponin I 0.05 < 0.05 NT-Pro-B Natriuret Pep 2090 H Total Protein 6.8 Albumin 3.4 02/09/21 02/09/21 02/09/21 08:00 08:24 11:06 WBC RBC Hgb Hct MCV MCH MCHC RDW Plt Count MPV Immature Gran % Neutrophils % Lymphocytes % Monocytes % Eosinophils % Basophils % Nucleated RBC % Absolute Neutrophils Absolute Lymphocytes Absolute Monocytes Absolute Eosinophils Absolute Basophils D-Dimer 460 Sodium Cancelled Potassium Cancelled Chloride Cancelled Carbon Dioxide Cancelled Anion Gap Cancelled BUN Cancelled Creatinine Cancelled Estimated GFR/1.73 m2 Cancelled Glucose Cancelled Calcium Cancelled Magnesium Total Bilirubin Cancelled AST Cancelled ALT Cancelled Alkaline Phosphatase Cancelled Troponin I Cancelled NT-Pro-B Natriuret Pep Total Protein Cancelled Albumin Cancelled 02/09/21 02/09/21 11:10 11:24 WBC RBC Hgb Hct MCV MCH MCHC RDW Plt Count MPV Immature Gran % Neutrophils % Lymphocytes % Monocytes % Eosinophils % Basophils % Nucleated RBC % Absolute Neutrophils Absolute Lymphocytes Absolute Monocytes Absolute Eosinophils Absolute Basophils D-Dimer Sodium Potassium Chloride Carbon Dioxide Anion Gap BUN Creatinine Estimated GFR/1.73 m2 Glucose Calcium Magnesium Total Bilirubin AST ALT Alkaline Phosphatase Troponin I 0.10 H* Cancelled NT-Pro-B Natriuret Pep Total Protein Albumin Last Vital Signs Temp 36.6 C 02/09/21 07:52 Pulse 80 02/09/21 13:21 Resp 14 02/09/21 13:21 BP 175/87 H 02/09/21 13:21 Pulse Ox 95 02/09/21 09:21 COVID-19 Screening Have you, or household traveled for leisure in last 14 days?: No Had IN PERSON contact w/suspected or confirmed C-19 person: No
[2021-02-09 15:04] LABS: Source Nasal/Nares
[2021-02-09 16:00] LABS: Troponin I 0.07 ng/mL (<0.06)
[2021-02-09] MEDS: hydroCHLOROthiazide 25 MG TAB PO (17:37)
[2021-02-09 20:24] LABS: Troponin I < 0.05 ng/mL (<0.06)
[2021-02-09] MEDS: LORazepam 0.5 MG TAB 1 MG PO (21:14)
[2021-02-09 23:32] LABS: COVID-19 PCR Negative (Negative)
[2021-02-10 03:10] VITALS: BP 157/81; PULSE 74; RESP 17; TEMP 36.7; O2SAT 95
[2021-02-10 07:16] LABS: Abs Immature Grans 0.02 10^3/uL (0.0-0.06); Absolute Basophil Count 0.05 10^3/uL (0.0-0.2); Absolute Eosinophil Count 0.52 10^3/uL (0.0-0.7); Absolute Lymphocyte Count 1.75 10^3/uL (1.2-3.4); Absolute Monocyte Count 0.56 10^3/uL (0.1-0.8); Absolute Neutrophil Count 2.95 10^3/uL (1.2-6.7); Basophils % 0.9; Eosinophils % 8.9; HCT 45.1 % (36.0-46.0); Immature Grans % 0.3; Lymphocytes % 29.9; MCH 29.4 pg (27.0-33.0); MCHC 33.3 % (32.0-36.0); MCV 88.3 fL (80-95); MPV 9.8 fL (8.0-11.0); Monocytes % 9.6; Neutrophils % 50.4; Nucleated RBC 0 %; Platelet Count 241 10^3/uL (130-400); RBC 5.11 10^6/uL (3.93-5.22); RDW 12.4 % (11.7-14.6); RDW-SD 40.4 fL; WBC 5.85 10^3/uL (4.4-10.8)
[2021-02-10 07:17] VITALS: PULSE 79
[2021-02-10 07:33] LABS: Anion Gap 10.4 mmol/L (3-11); BUN 14 mg/dL (7-18); CO2 29.6 mmol/L (21.0-32.0); CREATININE 0.8 mg/dL (0.55-1.02); Calcium 9.3 mg/dL (8.5-10.1); Chloride 104 mmol/L (98-107); Glucose 139 mg/dL (74-106); Potassium 3.4 mmol/L (3.5-5.1); Sodium 144 mmol/L (136-145); Troponin I < 0.05 ng/mL (<0.06)
== END 2021-02-10 07:59 | disposition left against medical advice (07) ==
LOC: ER 12:51 → MS 15:11
PROVIDERS: Nurse Practitioner Acute Care; Admitting Provider Internal Medicine; Emergency Provider Physician Assistant; PCP Family Medicine; Visit Provider Internal Medicine
DX: R07.89 Other chest pain (principal); R74.8 Abnormal levels of other serum enzymes; I11.0 Hypertensive heart disease with heart failure; I50.9 Heart failure, unspecified; F10.10 Alcohol abuse, uncomplicated; I35.0 Nonrheumatic aortic (valve) stenosis; E11.9 Type 2 diabetes mellitus without complications; M06.9 Rheumatoid arthritis, unspecified; E78.5 Hyperlipidemia, unspecified; G47.00 Insomnia, unspecified; Z20.822 Contact with and (suspected) exposure to COVID-19
CPT/HCPCS: 36415; 80048; 80053; 87635; 93005; 96374; 99291; 71046; 83735; 83880; 84484; 85025; 85379; 93010; 99220; G0378; J1941

== ENCOUNTER → 2021-02-16 11:34 | Outpatient (BNVA) | payer MEDICARE, BC, SELFPAY | PROVIDERS: PCP Family Medicine; Referring Provider Family Medicine; Visit Provider Internal Medicine Cardiovascular Disease | DX: I50.9 Heart failure, unspecified (principal); I11.0 Hypertensive heart disease with heart failure; I35.0 Nonrheumatic aortic (valve) stenosis | CPT/HCPCS: 99214 ==

== ENCOUNTER 2021-02-28 02:27 | Outpatient (RCR) | payer MEDICARE, BC, SELFPAY ==
[2021-02-01] MEDS: ABATACEPT 750 MG in Normal Saline 100 ML 200 MG IVPB (09:16)
[2021-02-01] MEDS: Normal Saline Flush 10 ML SYR IVP (09:16)
[2021-02-28] MEDS: Normal Saline Flush 10 ML SYR IVP (08:31)
[2021-02-28] MEDS: ABATACEPT 750 MG in Normal Saline 100 ML 200 MG IVPB (09:03)
== END 2021-02-28 23:59 | disposition home or self-care (01) ==
LOC: INF 02:27
PROVIDERS: PCP Family Medicine; Visit Provider Nurse Practitioner Acute Care
DX: M06.9 Rheumatoid arthritis, unspecified (principal)
CPT/HCPCS: 96365; J0129

== ENCOUNTER 2021-03-14 01:32 | Outpatient (CLI) | payer MEDICARE, BC, SELFPAY ==
--- NOTE | 2021-03-14 07:34 | DI.US_ITS ---
APPROVED REPORT EXAM: Comprehensive 2D, Doppler, and color-flow Echocardiogram Patient Location: Out-Patient Indications: Aortic Stenosis Other Information Study Quality: Adequate Conclusion Left Ventricle : The left ventricle is normal size. The left ventricular ejection fraction is within the normal range. Mild concentric left ventricular hypertrophy. There is normal LV segmental wall mot ion. The left ventricular diastolic function is abnormal. LVEF is 60%. Right Ventricle : The right ventricle is normal size. The right ventricular systolic function is norm al. The RVSP is 27.1 mmHg. Atria : The left atrium size is normal. The right atrium size is normal. Aortic Valve : Aortic valve is calcified. Number of aortic valve leaflets could not be assessed. Trac e aortic regurgitation. Moderate aortic stenosis. Peak aortic valve gradient is 37.4mmHg. Highest justus n aortic valve gradient is 22.0mmHg. Calculated GAVIN by the continuity equation is 1.40cm2. Mitral Valve : Severe mitral annular calcification. Mild to moderate mitral regurgitation. No evidenc e of mitral valve stenosis. Great Vessels : The aortic root is normal in size. The ascending aorta is mildly dilated. Aortic arch is normal in caliber. IVC is normal in size and collapses >50% with inspiration. Wall motion Left Ventricle The left ventricle is normal size. The left ventricular ejection fraction is within the normal range. Mild concentric left ventricular hypertrophy. There is normal LV segmental wall motion. The left gissel tricular diastolic function is abnormal. There is no ventricular septal defect visualized. LVEF is 60 %. Right Ventricle The right ventricle is normal size. The right ventricular systolic function is normal. The RVSP is 27 .1 mmHg. Atria The left atrium size is normal. The right atrium size is normal. The interatrial septum is intact wit h no evidence for an atrial septal defect. Aortic Valve Aortic valve is calcified. Number of aortic valve leaflets could not be assessed. Moderate aortic maira nosis. Peak aortic valve gradient is 37.4mmHg. Highest mean aortic valve gradient is 22.0mmHg. Calcul ated GAVIN by the continuity equation is 1.40cm2. Trace aortic regurgitation. Mitral Valve Severe mitral annular calcification. No evidence of mitral valve stenosis. Mild to moderate mitral re gurgitation. Tricuspid Valve The tricuspid valve is normal in structure. There is no tricuspid valve stenosis. Trace tricuspid reg urgitation. Pulmonic Valve The pulmonary valve is normal in structure. There is no pulmonic valvular stenosis. There is no pulmo natanael valvular regurgitation. Great Vessels The aortic root is normal in size. The ascending aorta is mildly dilated. Aortic arch is normal in ca liber. IVC is normal in size and collapses >50% with inspiration. Pericardium There is no pericardial effusion. 2D Dimensions IVSD d PLAX 1.12 cm F: 0.6-1.0 LV Vol A2C d MOD 83.4 mL LVPW d PLAX 1.13 cm F: 0.6 - 1.0 LV Vol A4C d MOD 80.6 mL LVID d PLAX 4.35 cm F: 3.8 - 5.2 LA vol/ BSA A2C s A-L 26.9 mL/m2 LVDs 2.90 cm F: 2.2 - 3.5 LA vol/ BSA A4C s A-L 34.7 mL/m2 Ao Root d 3.07 cm F: 2.7 - 3.3 LA Vol/ BSA Biplane s A-L 31.4 mL/m2 RA Area A4C 13.79 cm2 LA Area A4C s MOD 21.41 cm2 RA Vol/ BSA A4C s A-L 18.1 mL/m2 LA Area A2C s MOD 18.34 cm2 Ao Asc Diam d 3.45 cm F: 2.3 - 3.1 LV EF A4C MOD 59.9 % LV EF Teichholz 61.8 % LV EF A2C MOD 60.2 % LVEF (Rivas's) 58.43 % F: 54 - 74 LV EF Biplane MOD 58.4 % LV Volume 63.12 mL F: 46 - 106 SV 48.15 mL LV Volume Index 33.57 mL/m2 F: 29 - 61 SV Index 25.62 mL/m2 LV Vol Biplane MOD 82.4 mL FS 33.00 % M-Mode TAPSE 2.71 cm (M/F) >1.7 LV Diastology MV E' medial 0.073 (>0.07 m/s) E/A Ratio 0.8 LV E/e MED 14.30 (<14) MV E Vmax 1.05 (0.4-1.3 m/s) MV E' lateral 0.075 (>0.1 m/s) MV A Vmax 1.30 (0.4-1.3 m/s) LV E/e LAT 14.00 (<14) MV E/A Ratio 0.79 MV E/E' medial 14.32 MV E/E' lateral 14.01 Aortic Valve LVOT Area 3.65 cm2 AoV Area Vmax 1.40 cm2 LVOT Vmax 1.17 m/s AoV Area/ BSA (Vmax) 0.75 cm2/m2 LVOT Mean Brian. 1.01 m/s GAVIN Mean Brian. 1.65 cm2 LVOT Peak Grad 5.5 mmHg GAVIN Mean Brian. Index 0.88 cm2/m2 LVOT Mean Grad 4.2 mmHg AR DT 1867 msec LVOT VTI 0.300 m AR PHT 542 msec LVOT Diam s 2.15 cm AoV Vmax 3.06 m/s Velocity Ratio 0.38 AoV Mean Brian. 2.22 m/s AoV Peak Grad 37.4 mmHg LVOT SV 109.69 mL AoV Mean Grad 22.0 mmHg AoV VTI 0.757 m AoV Area VTI 1.45 cm2 AoV Area/ BSA (VTI) 0.77 cm/m2 Mitral Valve MV DT 322 (160-240 msec) MR Vmax 5.87 m/s MV PHT 93 msec MR VTI 1.855 m MV Area PHT 2.36 cm2 MR Peak Grad 138.0 mmHg MV VTI 0.399 m MR Mean Grad 101.1 mmHg MV Area VTI 2.75 (4.0-6.0 cm2) Pulmonary Valve PV Vmax 1.21 (0.5-1.5 m/s) RVOT Peak Gr. 2.76 mmHg PV Peak Grad 5.9 mmHg RVOT Mean Gr. 1.45 mmHg PV Mean Grad 3.1 mmHg RVOT VTI 0.178 m PV VTI 0.246 m RVOT Vmax 0.83 m/s Tricuspid Valve TR Peak Grad 24.1 mmHg TR Vmax 2.46 m/s RA Pressure 3.00 mmHg RVSP (TR) 27.1 mmHg
== END 2021-03-14 01:52 ==
PROVIDERS: PCP Family Medicine; Visit Provider Internal Medicine Cardiovascular Disease
DX: I10 Essential (primary) hypertension (principal); I35.0 Nonrheumatic aortic (valve) stenosis; I77.810 Thoracic aortic ectasia; I34.0 Nonrheumatic mitral (valve) insufficiency
CPT/HCPCS: 93306

== ENCOUNTER → 2021-03-19 13:37 | Outpatient (BNVA) | payer MEDICARE, BC, SELFPAY | PROVIDERS: PCP Family Medicine; Referring Provider Family Medicine; Visit Provider Internal Medicine Cardiovascular Disease | DX: I35.0 Nonrheumatic aortic (valve) stenosis (principal); I10 Essential (primary) hypertension | CPT/HCPCS: 99213 ==

== ENCOUNTER 2021-03-29 03:53 | Outpatient (RCR) | payer MEDICARE, BC, SELFPAY ==
[2021-03-29] MEDS: ABATACEPT 750 MG in Normal Saline 100 ML 200 MG IVPB (09:21)
[2021-03-29 09:22] LABS: Abs Immature Grans 0.07 10^3/uL (0.0-0.06); Absolute Basophil Count 0.05 10^3/uL (0.0-0.2); Absolute Eosinophil Count 0.46 10^3/uL (0.0-0.7); Absolute Lymphocyte Count 1.43 10^3/uL (1.2-3.4); Absolute Monocyte Count 0.71 10^3/uL (0.1-0.8); Absolute Neutrophil Count 5.12 10^3/uL (1.2-6.7); Basophils % 0.6; Eosinophils % 5.9; HCT 46.1 % (36.0-46.0); HGB 15.3 g/dL (11.2-15.7); Immature Grans % 0.9; Lymphocytes % 18.2; MCH 29.3 pg (27.0-33.0); MCHC 33.2 % (32.0-36.0); MCV 88.3 fL (80-95); MPV 10.1 fL (8.0-11.0); Monocytes % 9.1; Neutrophils % 65.3; Nucleated RBC 0 %; Platelet Count 237 10^3/uL (130-400); RBC 5.22 10^6/uL (3.93-5.22); RDW 12.8 % (11.7-14.6); RDW-SD 41.9 fL; WBC 7.84 10^3/uL (4.4-10.8)
[2021-03-29 09:34] LABS: ALT 20 U/L (14-59); AST 19 U/L (15-37); Alkaline Phosphatase 78 U/L (46-116); Anion Gap 9.7 mmol/L (3-11); BUN 27 mg/dL (7-18); Bilirubin, Total 1.2 mg/dL (0.2-1.0); C-Reactive Protein 0.58 mg/dL (0.0-0.3); CO2 30.3 mmol/L (21.0-32.0); CREATININE 1.3 mg/dL (0.55-1.02); Calcium 9.7 mg/dL (8.5-10.1); Chloride 101 mmol/L (98-107); Estimated GFR 40.61 (mL/min/1.73m2); Glucose 197 mg/dL (74-106); Potassium 3.3 mmol/L (3.5-5.1); Sodium 141 mmol/L (136-145); Total Protein 7.6 g/dL (6.4-8.2)
[2021-03-29] MEDS: Normal Saline Flush 10 ML SYR IVP (13:34)
== END 2021-03-31 23:59 | disposition home or self-care (01) ==
LOC: INF 03:53
PROVIDERS: PCP Family Medicine; Visit Provider Nurse Practitioner Acute Care
DX: M05.79 Rheumatoid arthritis with rheumatoid factor of multiple sites without organ or systems involvement (principal)
CPT/HCPCS: 36415; 80053; 96365; 85025; 86140; J0129

== ENCOUNTER 2021-04-25 02:19 | Outpatient (RCR) | payer MEDICARE, BC, SELFPAY ==
[2021-04-25] MEDS: Normal Saline Flush 10 ML SYR IVP (08:38)
[2021-04-25] MEDS: ABATACEPT 750 MG in Normal Saline 100 ML 200 MG IVPB (09:07)
== END 2021-05-01 23:59 | disposition home or self-care (01) ==
LOC: INF 02:19
PROVIDERS: PCP Family Medicine; Visit Provider Nurse Practitioner Acute Care
DX: M05.79 Rheumatoid arthritis with rheumatoid factor of multiple sites without organ or systems involvement (principal)
CPT/HCPCS: 36415; 96365; J0129

== ENCOUNTER 2021-05-30 08:30 | Outpatient (RCR) | payer MEDICARE, BC, SELFPAY ==
[2021-05-30] MEDS: ABATACEPT 750 MG in Normal Saline 100 ML 200 MG IVPB (09:14)
[2021-05-30] MEDS: Normal Saline Flush 10 ML SYR IVP (09:14)
[2021-05-30 09:30] LABS: Albumin 3.7 g/dL (3.4-5.0); BUN 19 mg/dL (7-18); Bilirubin, Total 0.7 mg/dL (0.2-1.0); CREATININE 0.9 mg/dL (0.55-1.02); Calcium 9.3 mg/dL (8.5-10.1); Calculated LDL 185 mg/dL (<100); Cholesterol 258 mg/dL (<200); Glucose 188 mg/dL (74-106); HDL Cholesterol 58 mg/dL (40-60); Total Protein 7.4 g/dL (6.4-8.2); Triglyceride 78 mg/dL (<150)
[2021-05-30 09:31] LABS: ALT 23 U/L (14-59); AST 18 U/L (15-37); Alkaline Phosphatase 82 U/L (46-116); Anion Gap 8.7 mmol/L (3-11); CO2 30.3 mmol/L (21.0-32.0); Chloride 101 mmol/L (98-107); Potassium 3.5 mmol/L (3.5-5.1); Sodium 140 mmol/L (136-145); Vitamin B12 490 pg/mL (193-986)
[2021-05-30 10:14] LABS: COMMENT (LAB VIEW ONLY) 35.22 mg/dL; Microalb ug/mg Crea 16.8 ug/mg Cr
== END 2021-05-31 23:59 | disposition home or self-care (01) ==
LOC: INF 08:30
PROVIDERS: PCP Nurse Practitioner Adult Health; Visit Provider Nurse Practitioner Acute Care
DX: I10 Essential (primary) hypertension (principal); E78.5 Hyperlipidemia, unspecified; E11.9 Type 2 diabetes mellitus without complications; M05.79 Rheumatoid arthritis with rheumatoid factor of multiple sites without organ or systems involvement
CPT/HCPCS: 36415; 80053; 80061; 96365; 82043; 82570; 82607; 83036; J0129

== ENCOUNTER 2021-06-27 08:30 | Outpatient (RCR) | payer MEDICARE, BC, SELFPAY ==
[2021-06-27] MEDS: Normal Saline Flush 10 ML SYR IVP (08:34)
[2021-06-27 08:46] LABS: Abs Immature Grans 0.01 10^3/uL (0.0-0.06); Absolute Basophil Count 0.07 10^3/uL (0.0-0.2); Absolute Eosinophil Count 0.45 10^3/uL (0.0-0.7); Absolute Lymphocyte Count 1.61 10^3/uL (1.2-3.4); Absolute Monocyte Count 0.63 10^3/uL (0.1-0.8); Absolute Neutrophil Count 3.49 10^3/uL (1.2-6.7); Basophils % 1.1; Eosinophils % 7.2; HCT 43.6 % (36.0-46.0); HGB 14.3 g/dL (11.2-15.7); Immature Grans % 0.2; Lymphocytes % 25.7; MCHC 32.8 % (32.0-36.0); MCV 91.4 fL (80-95); MPV 10.1 fL (8.0-11.0); Monocytes % 10.1; Neutrophils % 55.7; Nucleated RBC 0 %; Platelet Count 235 10^3/uL (130-400); RBC 4.77 10^6/uL (3.93-5.22); RDW 12.1 % (11.7-14.6); RDW-SD 40.8 fL; WBC 6.26 10^3/uL (4.4-10.8)
[2021-06-27 09:18] LABS: Hemoglobin A1C 6.7 % (<5.7)
[2021-06-27] MEDS: ABATACEPT 750 MG in Normal Saline 100 ML 200 MG IVPB (09:27)
[2021-06-27 10:00] LABS: ALT 19 U/L (14-59); AST 18 U/L (15-37); Albumin 3.4 g/dL (3.4-5.0); Alkaline Phosphatase 64 U/L (46-116); Anion Gap 6.9 mmol/L (3-11); BUN 20 mg/dL (7-18); Bilirubin, Total 0.7 mg/dL (0.2-1.0); C-Reactive Protein 0.12 mg/dL (0.0-0.3); CO2 31.1 mmol/L (21.0-32.0); CREATININE 0.9 mg/dL (0.55-1.02); Calcium 8.9 mg/dL (8.5-10.1); Chloride 102 mmol/L (98-107); Glucose 183 mg/dL (74-106); Sodium 140 mmol/L (136-145); Total Protein 6.6 g/dL (6.4-8.2)
== END 2021-07-01 23:59 | disposition home or self-care (01) ==
LOC: INF 08:30
PROVIDERS: Internal Medicine Rheumatology; PCP Nurse Practitioner Adult Health; Visit Provider Nurse Practitioner Acute Care
DX: M05.79 Rheumatoid arthritis with rheumatoid factor of multiple sites without organ or systems involvement (principal); E11.9 Type 2 diabetes mellitus without complications
CPT/HCPCS: 36415; 80053; 96365; 83036; 85025; 86140; J0129

== ENCOUNTER 2021-07-04 00:43 | Outpatient (CLI) | payer MEDICARE, BC, SELFPAY ==
--- NOTE | 2021-07-04 07:00 | DI.MAMMO_ITS ---
Exam(s) MAMMO SCREENING EXAM: MAMMO SCREENING CLINICAL HISTORY: screening,Z12.39. TECHNIQUE: Bilateral full field digital CC and MLO mammographic images were obtained with 3D tomosyn thesis and utilizing computer aided detection (CAD). COMPARISON: None. Apparently her most recent mammogram was in 1998 and is not available for compari son. FINDINGS: Fibroglandular tissue pattern is moderately dense, this decreasing sensitivity mammogram for finding hidden underlying lesions. On 3D MLO imaging there is suggestion of a nodular density in the retroareolar region left breast loc ated 2 cm in from the nipple and measuring approximately 7 x 6 millimeters. The opposite-right breast there is suggestion of a nodular density towards the superior aspect the br east located 7 cm in from the nipple, this measuring approximately 10 x 8 millimeters. There is scattered benign-appearing microcalcifications in both breasts as well as vascular calcifica tion. No significant architectural distortion or skin thickening-traction. IMPRESSION: Moderately dense fibroglandular tissue. Suggestion of bilateral nodules. Bilateral spot compression views and bilateral ultrasound are recommended. BI-RADS Category 0 - Assessment Incomplete: Need additional imaging evaluation Breast Density - Category C - Heterogeneously dense Breast density Category C or D implies that the patient has dense breast tissue. Dense breast tissue can make it harder to find cancer on a mammogram. Dense breast tissue is also associated with an incr eased risk of breast cancer. This information about the result of the mammogram report was provided to the patient to raise their awareness. Use this report when you speak with the patient about their risks for breast cancer, which includes their family history. At that time, you may recommend additional screening tests (Ultrasoun d or MRI) as these tests may add significant information. A negative radiographic report should not delay biopsy if a dominant or clinically suspicious mass is present. Up to ten percent of cancers are not identified on mammography. A negative report may reinforce clinical impression. Adenosis and dense breasts may obscure an underlying neoplasm. False positive reports average 6 to 10%. Patient will receive a letter notifying them of these results.
== END 2021-07-04 01:03 ==
PROVIDERS: PCP Nurse Practitioner Adult Health; Visit Provider Nurse Practitioner Adult Health
DX: Z12.31 Encounter for screening mammogram for malignant neoplasm of breast (principal); R92.8 Other abnormal and inconclusive findings on diagnostic imaging of breast
CPT/HCPCS: 77063; 77067

== ENCOUNTER 2021-07-25 02:14 | Outpatient (RCR) | payer MEDICARE, BC, SELFPAY ==
[2021-07-25] MEDS: ABATACEPT 750 MG in Normal Saline 100 ML 200 MG IVPB (08:55)
[2021-07-25] MEDS: Normal Saline Flush 10 ML SYR IVP (08:55)
== END 2021-07-31 23:59 | disposition home or self-care (01) ==
LOC: INF 02:14
PROVIDERS: PCP Nurse Practitioner Adult Health; Visit Provider Nurse Practitioner Acute Care
DX: M05.79 Rheumatoid arthritis with rheumatoid factor of multiple sites without organ or systems involvement (principal); Z79.899 Other long term (current) drug therapy
CPT/HCPCS: 96365; J0129

== ENCOUNTER 2021-08-01 00:44 | Outpatient (CLI) | payer MEDICARE, BC, SELFPAY ==
--- NOTE | 2021-08-01 10:47 | DI.MAMMO_ITS ---
Exam(s) US BREAST RT LIMITED US BREAST LT LIMITED MG MAMMO SCREEN CALL BACK BI EXAM: MG MAMMO SCREEN CALL BACK BI and bilateral limited breast ultrasound CLINICAL HISTORY: NODULAR DENSITY. TECHNIQUE: Craniocaudal and mediolateral oblique Full Field Digital Mammography views of the bilater al breast with Computer Aided Diagnosis followed by Tomosynthesis and bilateral breast ultrasound. COMPARISON: Priors available for comparison. FINDINGS: Mammography/Tomosynthesis: Masses/Architectural Distortion: None seen. Microcalcifictions: No suspicious pleomorphic-type are seen. Skin Thickening/Nipple Retraction: None. Bilateral breast US: The lower outer quadrant of the left breast and the upper inner and upper outer quadrants of the right breast were evaluated sonographically. Echotexture: Normal appearance of the glandular tissue. Shadowing: No suspicious foci. Cyst: None. Solid lesions: None seen. Ductal dilation: None. IMPRESSION: 1. No evidence of malignancy is noted. 2. A six-month follow-up bilateral mammogram is requested for re-evaluation. 3. The findings were discussed with the patient on the date of the examination. BI-RADS Category 3 - 6 month - Probably Benign Finding: Recommend follow-up imaging in 6 months Breast Density - Category C - Heterogeneously dense Breast density Category C or D implies that the patient has dense breast tissue. Dense breast tissue can make it harder to find cancer on a mammogram. Dense breast tissue is also associated with an incr eased risk of breast cancer. This information about the result of the mammogram report was provided to the patient to raise their awareness. Use this report when you speak with the patient about their risks for breast cancer, which includes their family history. At that time, you may recommend additional screening tests (Ultrasoun d or MRI) as these tests may add significant information. A negative radiographic report should not delay biopsy if a dominant or clinically suspicious mass is present. Up to ten percent of cancers are not identified on mammography. A negative report may reinforce clinical impression. Adenosis and dense breasts may obscure an underlying neoplasm. False positive reports average 6 to 10%. Patient will receive a letter notifying them of these results.
== END 2021-08-01 01:04 ==
PROVIDERS: PCP Nurse Practitioner Adult Health; Visit Provider Nurse Practitioner Adult Health
DX: R92.8 Other abnormal and inconclusive findings on diagnostic imaging of breast (principal)
CPT/HCPCS: 76642; 77063; 77067

== ENCOUNTER 2021-08-22 09:00 | Outpatient (RCR) | payer MEDICARE, BC, SELFPAY ==
[2021-08-22] MEDS: ABATACEPT 750 MG in Normal Saline 100 ML 200 MG IVPB (09:13)
[2021-08-22 09:20] LABS: Anion Gap 7.1 mmol/L (3-11); BUN 19 mg/dL (7-18); CO2 27.9 mmol/L (21.0-32.0); Calcium 8.9 mg/dL (8.5-10.1); Chloride 103 mmol/L (98-107); Estimated GFR 54.97 (mL/min/1.73m2); Glucose 152 mg/dL (74-106); Potassium 3.7 mmol/L (3.5-5.1); Sodium 138 mmol/L (136-145)
[2021-08-22] MEDS: Normal Saline Flush 10 ML SYR IVP (09:52)
== END 2021-08-31 23:59 | disposition home or self-care (01) ==
LOC: INF 09:00
PROVIDERS: Internal Medicine Rheumatology; PCP Nurse Practitioner Adult Health; Visit Provider Nurse Practitioner Acute Care
DX: E87.6 Hypokalemia (principal); M05.79 Rheumatoid arthritis with rheumatoid factor of multiple sites without organ or systems involvement
CPT/HCPCS: 36415; 80048; 96365; J0129

== ENCOUNTER → 2021-09-14 12:53 | Outpatient (BNVA) | payer MEDICARE, BC, SELFPAY | PROVIDERS: PCP Nurse Practitioner Adult Health; Visit Provider Internal Medicine Cardiovascular Disease | DX: I35.0 Nonrheumatic aortic (valve) stenosis (principal); I10 Essential (primary) hypertension; E78.5 Hyperlipidemia, unspecified | CPT/HCPCS: 99213 ==

== ENCOUNTER 2021-09-20 08:30 | Outpatient (RCR) | payer MEDICARE, BC, SELFPAY ==
[2021-09-20 09:01] LABS: Abs Immature Grans 0.02 10^3/uL (0.0-0.06); Absolute Basophil Count 0.07 10^3/uL (0.0-0.2); Absolute Lymphocyte Count 1.95 10^3/uL (1.2-3.4); Absolute Monocyte Count 0.65 10^3/uL (0.1-0.8); Absolute Neutrophil Count 3.34 10^3/uL (1.2-6.7); Basophils % 1.1; Eosinophils % 7.7; HGB 14.8 g/dL (11.2-15.7); Immature Grans % 0.3; Lymphocytes % 29.9; MCH 29.4 pg (27.0-33.0); MCHC 32.9 % (32.0-36.0); MCV 89.3 fL (80-95); Nucleated RBC 0 %; Platelet Count 247 10^3/uL (130-400); RBC 5.04 10^6/uL (3.93-5.22); RDW 12.3 % (11.7-14.6); RDW-SD 40.7 fL; WBC 6.53 10^3/uL (4.4-10.8)
[2021-09-20 09:10] LABS: Hemoglobin A1C 6.6 % (<5.7)
[2021-09-20 09:14] LABS: ALT 16 U/L (14-59); AST 25 U/L (15-37); Albumin 3.7 g/dL (3.4-5.0); Alkaline Phosphatase 78 U/L (46-116); BUN 21 mg/dL (7-18); Bilirubin, Total 0.9 mg/dL (0.2-1.0); C-Reactive Protein 0.06 mg/dL (0.0-0.3); Calcium 9.3 mg/dL (8.5-10.1); Chloride 99 mmol/L (98-107); Estimated GFR 54.97 (mL/min/1.73m2); Glucose 166 mg/dL (74-106); Potassium 3.3 mmol/L (3.5-5.1); Sodium 137 mmol/L (136-145); Total Protein 7.5 g/dL (6.4-8.2)
[2021-09-20] MEDS: ABATACEPT 750 MG in Normal Saline 100 ML 200 MG IVPB (09:27)
[2021-09-20] MEDS: Normal Saline Flush 10 ML SYR IVP (09:27)
== END 2021-10-01 23:59 | disposition home or self-care (01) ==
LOC: INF 08:30
PROVIDERS: Internal Medicine Rheumatology; PCP Nurse Practitioner Adult Health; Visit Provider Nurse Practitioner Acute Care
DX: M05.79 Rheumatoid arthritis with rheumatoid factor of multiple sites without organ or systems involvement (principal); E11.9 Type 2 diabetes mellitus without complications
CPT/HCPCS: 36415; 80053; 96365; 83036; 85025; 86140; J0129

== ENCOUNTER 2021-09-25 03:52 | Outpatient (CLI) | payer MEDICARE, BC, SELFPAY ==
[2021-09-25 20:33] LABS: COVID-19 RT-PCR UVMMC Result Negative (Negative)
== END 2021-09-25 03:53 | disposition home or self-care (01) ==
LOC: LBO 03:52
PROVIDERS: PCP Nurse Practitioner Adult Health; Visit Provider Internal Medicine Rheumatology
DX: Z20.822 Contact with and (suspected) exposure to COVID-19 (principal); Z01.818 Encounter for other preprocedural examination
CPT/HCPCS: U0003; U0005

== ENCOUNTER 2021-09-27 03:16 | Outpatient (RCR) | payer MEDICARE, BC, SELFPAY | END 2021-10-01 23:59 | disposition home or self-care (01) | LOC: INF 03:16 | PROVIDERS: PCP Nurse Practitioner Adult Health; Visit Provider Family Medicine | DX: Z29.8 Encounter for other specified prophylactic measures (principal); Z92.241 Personal history of systemic steroid therapy; D84.821 Immunodeficiency due to drugs; Z23 Encounter for immunization | CPT/HCPCS: 96372; Q0220 ==

== ENCOUNTER 2021-10-18 01:27 | Outpatient (RCR) | payer MEDICARE, BC, SELFPAY ==
[2021-10-18] MEDS: Normal Saline Flush 10 ML SYR IVP (08:37)
[2021-10-18] MEDS: ABATACEPT 750 MG in Normal Saline 100 ML 200 MG IVPB (09:03)
== END 2021-10-29 23:59 | disposition home or self-care (01) ==
LOC: INF 01:27
PROVIDERS: PCP Nurse Practitioner Adult Health; Visit Provider Nurse Practitioner Acute Care
DX: M05.79 Rheumatoid arthritis with rheumatoid factor of multiple sites without organ or systems involvement (principal)
CPT/HCPCS: 96365; J0129

== ENCOUNTER 2021-11-05 04:12 | Outpatient (CLI) | payer MEDICARE, BC, SELFPAY ==
[2021-11-06 13:08] LABS: COVID-19 RT-PCR UVMMC Result Negative (Negative)
== END 2021-11-05 04:13 | disposition home or self-care (01) ==
LOC: LBO 04:12
PROVIDERS: PCP Nurse Practitioner Adult Health; Visit Provider Internal Medicine Rheumatology
DX: Z20.822 Contact with and (suspected) exposure to COVID-19 (principal)
CPT/HCPCS: U0003; U0005

== ENCOUNTER 2021-11-15 03:05 | Outpatient (RCR) | payer MEDICARE, BC, SELFPAY ==
[2021-11-15] MEDS: Normal Saline Flush 10 ML SYR IVP (08:33)
[2021-11-15] MEDS: ABATACEPT 750 MG in Normal Saline 100 ML 200 MG IVPB (09:10)
== END 2021-11-29 23:59 | disposition home or self-care (01) ==
LOC: INF 03:05
PROVIDERS: PCP Nurse Practitioner Adult Health; Visit Provider Nurse Practitioner Acute Care
DX: D84.821 Immunodeficiency due to drugs (principal); M05.79 Rheumatoid arthritis with rheumatoid factor of multiple sites without organ or systems involvement; Z79.899 Other long term (current) drug therapy
CPT/HCPCS: 96365; 96372; Q0221; J0129

== ENCOUNTER 2021-12-13 02:06 | Outpatient (RCR) | payer MEDICARE, BC, SELFPAY ==
[2021-12-13] MEDS: Normal Saline Flush 10 ML SYR IVP (08:42)
[2021-12-13 08:54] LABS: Abs Immature Grans 0.02 10^3/uL (0.0-0.06); Absolute Basophil Count 0.05 10^3/uL (0.0-0.2); Absolute Eosinophil Count 0.57 10^3/uL (0.0-0.7); Absolute Lymphocyte Count 2.24 10^3/uL (1.2-3.4); Absolute Monocyte Count 0.68 10^3/uL (0.1-0.8); Absolute Neutrophil Count 4.67 10^3/uL (1.2-6.7); Basophils % 0.6; Eosinophils % 6.9; HCT 45.1 % (36.0-46.0); HGB 14.8 g/dL (11.2-15.7); Immature Grans % 0.2; Lymphocytes % 27.2; MCH 29.9 pg (27.0-33.0); MCHC 32.8 % (32.0-36.0); MCV 91.1 fL (80-95); Monocytes % 8.3; Neutrophils % 56.8; Nucleated RBC 0 %; Platelet Count 257 10^3/uL (130-400); RBC 4.95 10^6/uL (3.93-5.22); RDW-SD 40.2 fL; WBC 8.23 10^3/uL (4.4-10.8)
[2021-12-13 09:10] LABS: ALT 17 U/L (14-59); AST 19 U/L (15-37); Albumin 3.8 g/dL (3.4-5.0); Alkaline Phosphatase 76 U/L (46-116); Anion Gap 9.1 mmol/L (3-11); BUN 19 mg/dL (7-18); Bilirubin, Total 0.8 mg/dL (0.2-1.0); C-Reactive Protein 0.11 mg/dL (0.0-0.3); CO2 30.9 mmol/L (21.0-32.0); CREATININE 0.9 mg/dL (0.55-1.02); Calcium 9.2 mg/dL (8.5-10.1); Chloride 99 mmol/L (98-107); Glucose 186 mg/dL (74-106); Potassium 3.2 mmol/L (3.5-5.1); Sodium 139 mmol/L (136-145); Total Protein 7.3 g/dL (6.4-8.2)
[2021-12-13 09:34] LABS: Hemoglobin A1C 6.6 % (<5.7)
[2021-12-13] MEDS: ABATACEPT 750 MG in Normal Saline 100 ML 200 MG IVPB (09:42)
== END 2021-12-29 23:59 | disposition home or self-care (01) ==
LOC: INF 02:06
PROVIDERS: Internal Medicine Rheumatology; PCP Nurse Practitioner Adult Health; Visit Provider Nurse Practitioner Acute Care
DX: Z79.899 Other long term (current) drug therapy; M05.79 Rheumatoid arthritis with rheumatoid factor of multiple sites without organ or systems involvement
CPT/HCPCS: 36415; 80053; 96365; 83036; 85025; 86140; J0129

== ENCOUNTER 2022-01-10 01:39 | Outpatient (RCR) | payer MEDICARE, BC, SELFPAY ==
[2022-01-10] MEDS: Normal Saline Flush 10 ML SYR IVP (08:56)
[2022-01-10] MEDS: ABATACEPT 750 MG in Normal Saline 100 ML 200 MG IVPB (09:11)
== END 2022-01-29 23:59 | disposition home or self-care (01) ==
LOC: INF 01:39
PROVIDERS: PCP Nurse Practitioner Adult Health; Visit Provider Nurse Practitioner Acute Care
DX: M06.9 Rheumatoid arthritis, unspecified (principal)
CPT/HCPCS: 96365; J0129

== ENCOUNTER 2022-02-07 02:08 | Outpatient (RCR) | payer MEDICARE, BC, SELFPAY ==
[2022-02-07 08:23] VITALS: BP 124/72; PULSE 80; RESP 18; TEMP 36.6; O2SAT 98
[2022-02-07] MEDS: Normal Saline Flush 10 ML SYR IVP (08:25)
[2022-02-07] MEDS: ABATACEPT 750 MG in Normal Saline 100 ML 200 MG IVPB (09:15)
== END 2022-02-28 23:59 | disposition home or self-care (01) ==
LOC: INF 02:08
PROVIDERS: PCP Nurse Practitioner Adult Health; Visit Provider Nurse Practitioner Acute Care
DX: M05.79 Rheumatoid arthritis with rheumatoid factor of multiple sites without organ or systems involvement (principal)
CPT/HCPCS: 96365; J0129

== ENCOUNTER → 2022-02-21 02:17 | Outpatient (CLI) | payer MEDICARE, BC, SELFPAY ==
--- NOTE | 2022-02-21 10:30 | DI.US_ITS ---
APPROVED REPORT EXAM: Comprehensive 2D, Doppler, and color-flow Echocardiogram Patient Location: Out-Patient Bow Making Machine Operator: Aarti Ribeiro RDCS (AE) Indications: Aortic Stenosis, HTN Other Information Study Quality: Adequate Conclusion Normal left ventricular wall thickness and chamber size. Estimated ejection fraction is 60%. Wall m otion is normal Normal right ventricular size and systolic function The left atrium is moderately dilated. The right atrium is normal in size the aortic valve is trileaflet and sclerotic. There is mild aortic regurgitation. There is moderate aortic stenosis. Peal gradient is 45, mean 28 mmHg. Calculated aortic valve area is 1.15 cm?? Severe mitral annular calcification. Moderate mitral regurgitation Normal tricuspid valve with mild regurgitation. Right ventricular systolic pressure could not be est imated Dilated ascending aorta measuring 3.51 cm Wall motion Left Ventricle The left ventricle is normal size. The left ventricular systolic function is normal. The left ventric ular ejection fraction is within the normal range. There is normal left ventricular wall thickness. T here is normal LV segmental wall motion. Left ventricular filling pattern is normal for age. Transmit ral Doppler flow pattern suggests impaired LV relaxation. Transmitral Doppler flow pattern suggests p seudonormalization. There is no ventricular septal defect visualized. LVEF is 60%. Right Ventricle The right ventricle is normal size. The right ventricular systolic function is normal. Atria Left atrium is moderately dilated. The right atrium size is normal. The interatrial septum is intact with no evidence for an atrial septal defect. Aortic Valve Aortic valve is calcified. Aortic valve is trileaflet. Moderate aortic stenosis. Peak aortic valve gr adient is 44.6mmHg. Highest mean aortic valve gradient is 28.2mmHg. Calculated GAVIN by the continuity equation is 1.15cm2. Mild aortic regurgitation. Mitral Valve Severe mitral annular calcification. No evidence of mitral valve stenosis. Moderate mitral regurgitat ion. Tricuspid Valve The tricuspid valve is normal in structure. There is no tricuspid valve stenosis. Mild tricuspid regu rgitation. Unable to assess PA pressure. Pulmonic Valve The pulmonary valve is normal in structure. There is no pulmonic valvular stenosis. Trace pulmonic re gurgitation. Great Vessels The aortic root is normal in size. The ascending aorta is mildly dilated. Aortic arch is not well vis ualized. IVC is normal in size and collapses >50% with inspiration. Pericardium There is no pericardial effusion. 2D Dimensions IVSD d PLAX 1.02 cm F: 0.6-1.0 LV Vol A2C d MOD 94.9 mL LVPW d PLAX 1.02 cm F: 0.6 - 1.0 LV Vol A4C d MOD 114.9 mL LVID d PLAX 4.32 cm F: 3.8 - 5.2 LA vol/ BSA A2C s A-L 42.9 mL/m2 LVDs 3.00 cm F: 2.2 - 3.5 LA vol/ BSA A4C s A-L 36.7 mL/m2 Ao Root d 3.02 cm F: 2.7 - 3.3 LA Vol/ BSA Biplane s A-L 41.1 mL/m2 RA Area A4C 11.78 cm2 LA Area A4C s MOD 21.24 cm2 RA Vol/ BSA A4C s A-L 15.7 mL/m2 LA Area A2C s MOD 23.83 cm2 Ao Asc Diam d 3.51 cm F: 2.3 - 3.1 LV EF A4C MOD 59.1 % LV EF Teichholz 58.3 % LV EF A2C MOD 59.9 % LVEF (Rivas's) 60.68 % F: 54 - 74 LV EF Biplane MOD 60.7 % LV Volume 87.30 mL F: 46 - 106 SV 69.26 mL LV Volume Index 46.43 mL/m2 F: 29 - 61 SV Index 36.69 mL/m2 LV Vol Biplane MOD 114.1 mL FS 30.55 % M-Mode TAPSE 2.15 cm (M/F) >1.7 LV Diastology MV E' medial 0.065 (>0.07 m/s) E/A Ratio 0.6 LV E/e MED 13.15 (<14) MV E Vmax 0.85 (0.4-1.3 m/s) MV E' lateral 0.054 (>0.1 m/s) MV A Vmax 1.35 (0.4-1.3 m/s) LV E/e LAT 15.80 (<14) MV E/A Ratio 0.63 MV E/E' medial 13.15 MV E/E' lateral 15.84 Aortic Valve LVOT Area 3.07 cm2 AoV Area Vmax 1.15 cm2 LVOT Vmax 1.25 m/s AoV Area/ BSA (Vmax) 0.61 cm2/m2 LVOT Mean Brian. 0.91 m/s GAVIN Mean Brian. 1.10 cm2 LVOT Peak Grad 6.3 mmHg GAVIN Mean Brian. Index 0.58 cm2/m2 LVOT Mean Grad 3.7 mmHg AR DT 1811 msec LVOT VTI 0.280 m AR PHT 525 msec LVOT Diam s 1.95 cm AoV Vmax 3.34 m/s Velocity Ratio 0.37 AoV Mean Brian. 2.56 m/s AoV Peak Grad 44.6 mmHg LVOT SV 85.99 mL AoV Mean Grad 28.2 mmHg AoV VTI 0.817 m AoV Area VTI 1.05 cm2 AoV Area/ BSA (VTI) 0.56 cm/m2 Mitral Valve MV DT 377 (160-240 msec) MV PHT 109 msec MV Area PHT 2.01 cm2 MV VTI 0.398 m MV Area VTI 2.16 (4.0-6.0 cm2) Pulmonary Valve PV Vmax 1.05 (0.5-1.5 m/s) RVOT Peak Gr. 2.32 mmHg PV Peak Grad 4.4 mmHg RVOT Mean Gr. 1.25 mmHg PV Mean Grad 2.2 mmHg RVOT VTI 0.169 m PV VTI 0.197 m RVOT Vmax 0.76 m/s
== END ==
PROVIDERS: PCP Nurse Practitioner Adult Health; Visit Provider Internal Medicine Cardiovascular Disease
DX: I10 Essential (primary) hypertension (principal); I35.0 Nonrheumatic aortic (valve) stenosis
CPT/HCPCS: 93306

== ENCOUNTER → 2022-03-01 00:25 | Outpatient (CLI) | payer MEDICARE, BC, SELFPAY ==
--- NOTE | 2022-03-01 07:30 | DI.MAMMO_ITS ---
Exam(s) MAMMO DIAGNOSTIC BI EXAM: MAMMO DIAGNOSTIC BI CLINICAL HISTORY: 6m F/U rec on 08/2021 mammogram,r92.8,category 3. TECHNIQUE: Unilateral spot mammographic images were obtained with 3D tomosynthesis technique and uti lizing computer aided detection (CAD). COMPARISON: Prior mammograms were reviewed, the most recent being July 2021 as well as the diagn ostic imaging performed 08/01/2021 including spot views and breast ultrasound.. FINDINGS: Fibroglandular tissue is again noted be moderately dense. Previously described asymmetric densities in the retroareolar region of the left breast and upper out er quadrant of the right breast exhibit less concerning appearance on the present study. Further bay dence that these are most probably benign findings. There are no new spiculated masses nor malignant-appearing microcalcification groups in either breast . There is no new architectural distortion or skin thickening-traction. IMPRESSION: Dense fibroglandular tissue. Benign findings. No radiographic evidence of malignancy Appropriate follow-up is to keep this patient yearly mammogram schedule, with earlier imaging if a se lf detected breast change is noted The patient was informed of the findings and follow-up recommendations prior to leaving the [facility]. BI-RADS Category 2 - Benign Findings Breast Density - Category C - Heterogeneously dense Breast density Category C or D implies that the patient has dense breast tissue. Dense breast tissue can make it harder to find cancer on a mammogram. Dense breast tissue is also associated with an incr eased risk of breast cancer. This information about the result of the mammogram report was provided to the patient to raise their awareness. Use this report when you speak with the patient about their risks for breast cancer, which includes their family history. At that time, you may recommend additional screening tests (Ultrasoun d or MRI) as these tests may add significant information. A negative radiographic report should not delay biopsy if a dominant or clinically suspicious mass is present. Up to ten percent of cancers are not identified on mammography. A negative report may reinforce clinical impression. Adenosis and dense breasts may obscure an underlying neoplasm. False positive reports average 6 to 10%. Patient will receive a letter notifying them of these results.
== END ==
PROVIDERS: PCP Nurse Practitioner Adult Health; Visit Provider Nurse Practitioner Adult Health
DX: Z12.31 Encounter for screening mammogram for malignant neoplasm of breast (principal); R92.8 Other abnormal and inconclusive findings on diagnostic imaging of breast
CPT/HCPCS: 77062; 77066; G0279

== ENCOUNTER 2022-03-07 02:42 | Outpatient (RCR) | payer MEDICARE, BC, SELFPAY ==
[2022-03-01 00:17] VITALS: BP 124/72; PULSE 80; RESP 18; TEMP 36.6
[2022-03-07 08:51] LABS: Abs Immature Grans 0.02 10^3/uL (0.0-0.06); Absolute Basophil Count 0.08 10^3/uL (0.0-0.2); Absolute Eosinophil Count 0.37 10^3/uL (0.0-0.7); Absolute Lymphocyte Count 1.69 10^3/uL (1.2-3.4); Absolute Monocyte Count 0.62 10^3/uL (0.1-0.8); Absolute Neutrophil Count 3.26 10^3/uL (1.2-6.7); Basophils % 1.3; Eosinophils % 6.1; HCT 45.2 % (36.0-46.0); HGB 14.9 g/dL (11.2-15.7); Immature Grans % 0.3; MCH 29.3 pg (27.0-33.0); MCV 89 fL (80-95); MPV 9.8 fL (8.0-11.0); Monocytes % 10.3; Platelet Count 255 10^3/uL (130-400); RBC 5.09 10^6/uL (3.93-5.22); RDW 11.5 % (11.7-14.6); RDW-SD 37.2 fL; WBC 6.04 10^3/uL (4.4-10.8)
[2022-03-07] MEDS: ABATACEPT 750 MG in Normal Saline 100 ML 200 MG IVPB (09:07)
[2022-03-07] MEDS: Normal Saline Flush 10 ML SYR IVP (09:07)
[2022-03-07 09:08] LABS: ALT 18 U/L (14-59); AST 27 U/L (15-37); Albumin 3.7 g/dL (3.4-5.0); Alkaline Phosphatase 70 U/L (46-116); Anion Gap 9.5 mmol/L (3-11); BUN 21 mg/dL (7-18); C-Reactive Protein 0.13 mg/dL (0.0-0.3); CO2 28.5 mmol/L (21.0-32.0); Calcium 9.5 mg/dL (8.5-10.1); Chloride 99 mmol/L (98-107); Estimated GFR 54.97 (mL/min/1.73m2); Glucose 168 mg/dL (74-106); Potassium 3.3 mmol/L (3.5-5.1); Sodium 137 mmol/L (136-145); Total Protein 7.3 g/dL (6.4-8.2)
[2022-03-07 09:27] LABS: Hemoglobin A1C 6.6 % (<5.7)
== END 2022-03-31 23:59 | disposition home or self-care (01) ==
LOC: INF 02:42
PROVIDERS: PCP Nurse Practitioner Adult Health; Visit Provider Nurse Practitioner Acute Care
DX: M05.79 Rheumatoid arthritis with rheumatoid factor of multiple sites without organ or systems involvement (principal)
CPT/HCPCS: 36415; 80053; 96365; 83036; 85025; 86140; J0129

== ENCOUNTER → 2022-03-12 14:06 | Outpatient (BNVA) | payer MEDICARE, BC, SELFPAY | PROVIDERS: PCP Nurse Practitioner Adult Health; Referring Provider Nurse Practitioner Adult Health; Visit Provider Internal Medicine Cardiovascular Disease | DX: I35.0 Nonrheumatic aortic (valve) stenosis (principal) | CPT/HCPCS: 99213 ==

== ENCOUNTER 2022-04-29 03:00 | Outpatient (RCR) | payer MEDICARE, BC, SELFPAY ==
[2022-04-01 00:08] VITALS: BP 124/72; PULSE 80; RESP 18; TEMP 36.6
[2022-04-01] MEDS: ABATACEPT 750 MG in Normal Saline 100 ML 200 MG IVPB (09:24)
[2022-04-01] MEDS: Normal Saline Flush 10 ML SYR IVP (09:25)
[2022-04-29] MEDS: Normal Saline Flush 10 ML SYR IVP (08:52)
[2022-04-29] MEDS: ABATACEPT 750 MG in Normal Saline 100 ML 200 MG IVPB (08:52)
== END 2022-05-01 23:59 | disposition home or self-care (01) ==
LOC: INF 03:00
PROVIDERS: PCP Nurse Practitioner Adult Health; Visit Provider Nurse Practitioner Acute Care
DX: D84.821 Immunodeficiency due to drugs (principal)
CPT/HCPCS: 96365; J0129

== ENCOUNTER 2022-05-27 08:30 | Outpatient (RCR) | payer MEDICARE, BC, SELFPAY ==
[2022-05-02 00:16] VITALS: BP 124/72; PULSE 80; RESP 18; TEMP 36.6
[2022-05-27 08:57] LABS: Abs Immature Grans 0.03 10^3/uL (0.0-0.06); Absolute Basophil Count 0.07 10^3/uL (0.0-0.2); Absolute Eosinophil Count 0.78 10^3/uL (0.0-0.7); Absolute Lymphocyte Count 1.62 10^3/uL (1.2-3.4); Absolute Monocyte Count 0.66 10^3/uL (0.1-0.8); Absolute Neutrophil Count 4.81 10^3/uL (1.2-6.7); Basophils % 0.9; Eosinophils % 9.8; HCT 42.7 % (36.0-46.0); HGB 13.9 g/dL (11.2-15.7); Immature Grans % 0.4; Lymphocytes % 20.3; MCH 28.7 pg (27.0-33.0); MCHC 32.6 % (32.0-36.0); MCV 88 fL (80-95); MPV 10.4 fL (8.0-11.0); Monocytes % 8.3; Neutrophils % 60.3; Platelet Count 278 10^3/uL (130-400); RBC 4.84 10^6/uL (3.93-5.22); RDW 11.9 % (11.7-14.6); RDW-SD 38.7 fL; WBC 7.97 10^3/uL (4.4-10.8)
[2022-05-27] MEDS: ABATACEPT 750 MG in Normal Saline 100 ML 200 MG IVPB (08:58)
[2022-05-27] MEDS: Normal Saline Flush 10 ML SYR IVP (08:58)
[2022-05-27 09:16] LABS: Hemoglobin A1C 6.5 % (<5.7)
[2022-05-27 10:09] LABS: ALT 13 U/L (14-59); AST 19 U/L (15-37); Albumin 3.3 g/dL (3.4-5.0); Alkaline Phosphatase 71 U/L (46-116); Anion Gap 6.6 mmol/L (3-11); BUN 17 mg/dL (7-18); Bilirubin, Total 0.6 mg/dL (0.2-1.0); C-Reactive Protein 0.28 mg/dL (0.0-0.3); CO2 31.4 mmol/L (21.0-32.0); CREATININE 0.9 mg/dL (0.55-1.02); Calcium 9.2 mg/dL (8.5-10.1); Chloride 101 mmol/L (98-107); Estimated GFR 68.77 (mL/min/1.73m2); Glucose 148 mg/dL (74-106); Potassium 3.4 mmol/L (3.5-5.1); Sodium 139 mmol/L (136-145); Total Protein 6.7 g/dL (6.4-8.2)
== END 2022-05-31 23:59 | disposition home or self-care (01) ==
LOC: INF 08:30
PROVIDERS: Internal Medicine Rheumatology; PCP Nurse Practitioner Adult Health; Visit Provider Nurse Practitioner Acute Care
DX: M05.79 Rheumatoid arthritis with rheumatoid factor of multiple sites without organ or systems involvement (principal)
CPT/HCPCS: 36415; 80053; 96365; 96372; Q0221; 83036; 85025; 86140; J0129

== ENCOUNTER 2022-06-24 02:29 | Outpatient (RCR) | payer MEDICARE, BC, SELFPAY ==
[2022-06-01 00:10] VITALS: BP 124/72; PULSE 80; RESP 18; TEMP 36.6
[2022-06-24] MEDS: Normal Saline Flush 10 ML SYR IVP (09:21)
[2022-06-24] MEDS: ABATACEPT 750 MG in Normal Saline 100 ML 200 MG IVPB (09:21)
== END 2022-07-01 23:59 | disposition home or self-care (01) ==
LOC: INF 02:29
PROVIDERS: PCP Nurse Practitioner Adult Health; Visit Provider Nurse Practitioner Acute Care
DX: M05.79 Rheumatoid arthritis with rheumatoid factor of multiple sites without organ or systems involvement
CPT/HCPCS: 96365; J0129

== ENCOUNTER 2022-07-23 02:44 | Outpatient (RCR) | payer MEDICARE, BC, SELFPAY ==
[2022-07-02 00:05] VITALS: BP 124/72; PULSE 80; RESP 18; TEMP 36.6
[2022-07-23] MEDS: Normal Saline Flush 10 ML SYR IVP (08:33)
[2022-07-23] MEDS: ABATACEPT 750 MG in Normal Saline 100 ML 200 MG IVPB (08:59)
== END 2022-07-31 23:59 | disposition home or self-care (01) ==
LOC: INF 02:44
PROVIDERS: PCP Nurse Practitioner Adult Health; Visit Provider Nurse Practitioner Acute Care
DX: M05.79 Rheumatoid arthritis with rheumatoid factor of multiple sites without organ or systems involvement
CPT/HCPCS: 96365; J0129

== ENCOUNTER 2022-08-19 02:45 | Outpatient (RCR) | payer MEDICARE, BC, SELFPAY ==
[2022-08-01 00:15] VITALS: BP 124/72; PULSE 80; RESP 18; TEMP 36.6
[2022-08-19 08:54] LABS: Abs Immature Grans 0.02 10^3/uL (0.0-0.06); Absolute Basophil Count 0.07 10^3/uL (0.0-0.2); Absolute Eosinophil Count 0.57 10^3/uL (0.0-0.7); Absolute Monocyte Count 0.86 10^3/uL (0.1-0.8); Absolute Neutrophil Count 4.46 10^3/uL (1.2-6.7); Basophils % 0.9; Eosinophils % 7.5; HCT 46.8 % (36.0-46.0); HGB 15.2 g/dL (11.2-15.7); Immature Grans % 0.3; Lymphocytes % 21.1; MCHC 32.5 % (32.0-36.0); MCV 86 fL (80-95); MPV 10.1 fL (8.0-11.0); Monocytes % 11.3; Neutrophils % 58.9; Platelet Count 250 10^3/uL (130-400); RBC 5.42 10^6/uL (3.93-5.22); RDW 12.7 % (11.7-14.6); RDW-SD 39.7 fL; WBC 7.58 10^3/uL (4.4-10.8)
[2022-08-19 09:16] LABS: Hemoglobin A1C 6.6 % (<5.7)
[2022-08-19 09:22] LABS: ALT 17 U/L (14-59); AST 33 U/L (15-37); Albumin 3.8 g/dL (3.4-5.0); Alkaline Phosphatase 79 U/L (46-116); Anion Gap 9.1 mmol/L (3-11); BUN 28 mg/dL (7-18); Bilirubin, Total 1.3 mg/dL (0.2-1.0); CO2 30.9 mmol/L (21.0-32.0); CREATININE 1.2 mg/dL (0.55-1.02); Calcium 9.6 mg/dL (8.5-10.1); Chloride 99 mmol/L (98-107); Glucose 170 mg/dL (74-106); Potassium 3.7 mmol/L (3.5-5.1); Sodium 139 mmol/L (136-145); Total Protein 7.6 g/dL (6.4-8.2)
[2022-08-19] MEDS: Normal Saline Flush 10 ML SYR IVP (09:34)
[2022-08-19] MEDS: ABATACEPT 750 MG in Normal Saline 100 ML 200 MG IVPB (09:34)
== END 2022-08-31 23:59 | disposition home or self-care (01) ==
LOC: INF 02:45
PROVIDERS: PCP Nurse Practitioner Adult Health; Visit Provider Nurse Practitioner Acute Care
DX: M05.79 Rheumatoid arthritis with rheumatoid factor of multiple sites without organ or systems involvement (principal)
CPT/HCPCS: 36415; 80053; 96365; 83036; 85025; 86140; J0129

== ENCOUNTER 2022-09-16 02:37 | Outpatient (RCR) | payer MEDICARE, BC, SELFPAY ==
[2022-09-01 00:08] VITALS: BP 124/72; PULSE 80; RESP 18; TEMP 36.6
[2022-09-16] MEDS: Normal Saline Flush 10 ML SYR IVP (09:00)
[2022-09-16] MEDS: ABATACEPT 750 MG in Normal Saline 100 ML 200 MG IVPB (09:00)
== END 2022-10-01 23:59 | disposition home or self-care (01) ==
LOC: INF 02:37
PROVIDERS: PCP Nurse Practitioner Adult Health; Visit Provider Nurse Practitioner Acute Care
DX: M05.79 Rheumatoid arthritis with rheumatoid factor of multiple sites without organ or systems involvement (principal)
CPT/HCPCS: 96365; J0129

== ENCOUNTER 2022-09-18 03:26 | Outpatient (CLI) | payer MEDICARE, BC, SELFPAY ==
[2022-09-18 15:42] LABS: Anion Gap 7.1 mmol/L (3-11); BUN 27 mg/dL (7-18); CO2 31.9 mmol/L (21.0-32.0); CREATININE 1.2 mg/dL (0.55-1.02); Calcium 9.6 mg/dL (8.5-10.1); Chloride 99 mmol/L (98-107); Glucose 127 mg/dL (74-106); Potassium 3.5 mmol/L (3.5-5.1); Sodium 138 mmol/L (136-145)
== END 2022-09-18 03:27 | disposition home or self-care (01) ==
LOC: LBO 03:29
PROVIDERS: PCP Nurse Practitioner Adult Health; Visit Provider Nurse Practitioner Adult Health
DX: E87.6 Hypokalemia (principal)
CPT/HCPCS: 36415; 80048

== ENCOUNTER 2022-10-16 01:29 | Outpatient (RCR) | payer MEDICARE, BC, SELFPAY ==
[2022-10-02 00:05] VITALS: BP 124/72; PULSE 80; RESP 18; TEMP 36.6
[2022-10-16] MEDS: Normal Saline Flush 10 ML SYR IVP (08:48)
[2022-10-16] MEDS: ABATACEPT 750 MG in Normal Saline 100 ML 200 MG IVPB (08:48)
== END 2022-10-29 23:59 | disposition home or self-care (01) ==
LOC: INF 01:29
PROVIDERS: PCP Nurse Practitioner Adult Health; Visit Provider Nurse Practitioner Acute Care
DX: M05.79 Rheumatoid arthritis with rheumatoid factor of multiple sites without organ or systems involvement (principal)
CPT/HCPCS: 96365; J0129

== ENCOUNTER 2022-11-13 02:03 | Outpatient (RCR) | payer MEDICARE, BC, SELFPAY ==
[2022-10-30 00:13] VITALS: BP 124/72; PULSE 80; RESP 18; TEMP 36.6
[2022-11-13 08:20] LABS: Abs Immature Grans 0.01 10^3/uL (0.0-0.06); Absolute Basophil Count 0.07 10^3/uL (0.0-0.2); Absolute Eosinophil Count 0.42 10^3/uL (0.0-0.7); Absolute Lymphocyte Count 1.78 10^3/uL (1.2-3.4); Absolute Neutrophil Count 3.75 10^3/uL (1.2-6.7); Eosinophils % 6.2; HCT 47.5 % (36.0-46.0); HGB 15.9 g/dL (11.2-15.7); Immature Grans % 0.1; Lymphocytes % 26.4; MCH 29.1 pg (27.0-33.0); MCHC 33.5 % (32.0-36.0); MCV 87 fL (80-95); MPV 9.9 fL (8.0-11.0); Monocytes % 10.4; Neutrophils % 55.9; Platelet Count 271 10^3/uL (130-400); RBC 5.47 10^6/uL (3.93-5.22); RDW 12.8 % (11.7-14.6); RDW-SD 40.9 fL; WBC 6.73 10^3/uL (4.4-10.8)
[2022-11-13 08:40] LABS: ALT 14 U/L (14-59); AST 22 U/L (15-37); Albumin 3.8 g/dL (3.4-5.0); Alkaline Phosphatase 86 U/L (46-116); Anion Gap 6.6 mmol/L (3-11); BUN 24 mg/dL (7-18); Bilirubin, Total 1.3 mg/dL (0.2-1.0); C-Reactive Protein 0.16 mg/dL (0.0-0.3); CO2 32.4 mmol/L (21.0-32.0); CREATININE 1.1 mg/dL (0.55-1.02); Calcium 9.6 mg/dL (8.5-10.1); Chloride 100 mmol/L (98-107); Estimated GFR 54.06 (mL/min/1.73m2); Glucose 151 mg/dL (74-106); Potassium 3.6 mmol/L (3.5-5.1); Sodium 139 mmol/L (136-145); Total Protein 7.4 g/dL (6.4-8.2)
[2022-11-13] MEDS: Normal Saline Flush 10 ML SYR IVP (08:57)
[2022-11-13] MEDS: ABATACEPT 750 MG in Normal Saline 100 ML 200 MG IVPB (08:57)
[2022-11-13 08:58] LABS: Hemoglobin A1C 6.6 % (<5.7)
== END 2022-11-29 23:59 | disposition home or self-care (01) ==
LOC: INF 02:03
PROVIDERS: PCP Nurse Practitioner Adult Health; Visit Provider Nurse Practitioner Acute Care
DX: M05.79 Rheumatoid arthritis with rheumatoid factor of multiple sites without organ or systems involvement (principal)
CPT/HCPCS: 36415; 80053; 96365; 83036; 85025; 86140; J0129

== ENCOUNTER 2022-11-28 02:28 | Outpatient (CLI) | payer MEDICARE, BC, SELFPAY ==
[2022-11-28 11:11] LABS: Anion Gap 8.4 mmol/L (3-11); BUN 27 mg/dL (7-18); CO2 33.6 mmol/L (21.0-32.0); CREATININE 1.1 mg/dL (0.55-1.02); Calcium 9.8 mg/dL (8.5-10.1); Chloride 100 mmol/L (98-107); Estimated GFR 54.06 (mL/min/1.73m2); Glucose 144 mg/dL (74-106); Potassium 3.6 mmol/L (3.5-5.1); Sodium 142 mmol/L (136-145)
== END 2022-11-28 02:29 | disposition home or self-care (01) ==
LOC: LBO 02:28
PROVIDERS: PCP Nurse Practitioner Adult Health; Visit Provider Nurse Practitioner Adult Health
DX: E87.6 Hypokalemia (principal)
CPT/HCPCS: 36415; 80048; 83735

== ENCOUNTER 2022-12-11 02:42 | Outpatient (RCR) | payer MEDICARE, BC, SELFPAY ==
[2022-11-30 00:19] VITALS: BP 124/72; PULSE 80; RESP 18; TEMP 36.6
[2022-12-11 08:54] LABS: Anion Gap 8.2 mmol/L (3-11); BUN 22 mg/dL (7-18); CO2 29.8 mmol/L (21.0-32.0); CREATININE 0.9 mg/dL (0.55-1.02); Calcium 9.3 mg/dL (8.5-10.1); Chloride 104 mmol/L (98-107); Estimated GFR 68.77 (mL/min/1.73m2); Glucose 152 mg/dL (74-106); Potassium 3.7 mmol/L (3.5-5.1); Sodium 142 mmol/L (136-145)
[2022-12-11] MEDS: Normal Saline Flush 10 ML SYR IVP (09:01)
[2022-12-11] MEDS: ABATACEPT 750 MG in Normal Saline 100 ML 200 MG IVPB (09:01)
== END 2022-12-29 23:59 | disposition home or self-care (01) ==
LOC: INF 02:42
PROVIDERS: PCP Nurse Practitioner Adult Health; Visit Provider Nurse Practitioner Acute Care
DX: E87.6 Hypokalemia (principal); M05.79 Rheumatoid arthritis with rheumatoid factor of multiple sites without organ or systems involvement
CPT/HCPCS: 36415; 80048; 96365; J0129

== ENCOUNTER 2023-01-08 01:53 | Outpatient (RCR) | payer MEDICARE, BC, SELFPAY ==
[2022-12-30 00:19] VITALS: BP 124/72; PULSE 80; RESP 18; TEMP 36.6
[2023-01-08] MEDS: Normal Saline Flush 10 ML SYR IVP (08:53)
[2023-01-08] MEDS: ABATACEPT 750 MG in Normal Saline 100 ML 200 MG IVPB (08:53)
== END 2023-01-29 23:59 | disposition home or self-care (01) ==
LOC: INF 01:53
PROVIDERS: PCP Nurse Practitioner Adult Health; Visit Provider Nurse Practitioner Acute Care
DX: M05.79 Rheumatoid arthritis with rheumatoid factor of multiple sites without organ or systems involvement (principal)
CPT/HCPCS: 96365; J0129

== ENCOUNTER 2023-01-16 02:55 | Outpatient (CLI) | payer MEDICARE, BC, SELFPAY ==
[2023-01-16 12:37] LABS: Abs Immature Grans 0.02 10^3/uL (0.0-0.06); Absolute Eosinophil Count 0.35 10^3/uL (0.0-0.7); Absolute Lymphocyte Count 2.24 10^3/uL (1.2-3.4); Absolute Monocyte Count 0.68 10^3/uL (0.1-0.8); Absolute Neutrophil Count 4.21 10^3/uL (1.2-6.7); Basophils % 1.3; Eosinophils % 4.6; HCT 46.7 % (36.0-46.0); HGB 15.4 g/dL (11.2-15.7); Immature Grans % 0.3; Lymphocytes % 29.5; MCH 28.8 pg (27.0-33.0); MCV 87 fL (80-95); MPV 9.6 fL (8.0-11.0); Monocytes % 8.9; Neutrophils % 55.4; Platelet Count 246 10^3/uL (130-400); RBC 5.35 10^6/uL (3.93-5.22); RDW 12.4 % (11.7-14.6); RDW-SD 39.5 fL
[2023-01-16 13:07] LABS: ALT 14 U/L (14-59); AST 14 U/L (15-37); Albumin 3.7 g/dL (3.4-5.0); Alkaline Phosphatase 81 U/L (46-116); Anion Gap 7.2 mmol/L (3-11); BUN 24 mg/dL (7-18); Bilirubin, Total 0.9 mg/dL (0.2-1.0); C-Reactive Protein 0.13 mg/dL (0.0-0.3); CO2 29.8 mmol/L (21.0-32.0); CREATININE 1.1 mg/dL (0.55-1.02); Calcium 9.4 mg/dL (8.5-10.1); Chloride 102 mmol/L (98-107); Estimated GFR 54.06 (mL/min/1.73m2); Glucose 139 mg/dL (74-106); Potassium 3.6 mmol/L (3.5-5.1); Sodium 139 mmol/L (136-145); Total Protein 7.3 g/dL (6.4-8.2)
== END 2023-01-16 02:56 | disposition home or self-care (01) ==
LOC: LBO 02:55
PROVIDERS: PCP Nurse Practitioner Adult Health; Visit Provider Internal Medicine Rheumatology
DX: M05.79 Rheumatoid arthritis with rheumatoid factor of multiple sites without organ or systems involvement (principal); Z79.899 Other long term (current) drug therapy
CPT/HCPCS: 36415; 80053; 85025; 86140

== ENCOUNTER 2023-02-05 03:30 | Outpatient (RCR) | payer MEDICARE, BC, SELFPAY ==
[2023-01-30 00:17] VITALS: BP 124/72; PULSE 80; RESP 18; TEMP 36.6
[2023-02-05 09:00] LABS: Abs Immature Grans 0.01 10^3/uL (0.0-0.06); Absolute Basophil Count 0.08 10^3/uL (0.0-0.2); Absolute Eosinophil Count 0.45 10^3/uL (0.0-0.7); Absolute Lymphocyte Count 1.72 10^3/uL (1.2-3.4); Absolute Neutrophil Count 2.63 10^3/uL (1.2-6.7); Basophils % 1.5; Eosinophils % 8.2; HCT 47.4 % (36.0-46.0); HGB 15.8 g/dL (11.2-15.7); Immature Grans % 0.2; Lymphocytes % 31.3; MCH 29.5 pg (27.0-33.0); MCHC 33.3 % (32.0-36.0); MCV 88 fL (80-95); MPV 10.1 fL (8.0-11.0); Monocytes % 10.9; Neutrophils % 47.9; Platelet Count 249 10^3/uL (130-400); RBC 5.36 10^6/uL (3.93-5.22); RDW 12.3 % (11.7-14.6); RDW-SD 39.8 fL; WBC 5.49 10^3/uL (4.4-10.8)
[2023-02-05 09:15] LABS: ALT 15 U/L (14-59); AST 18 U/L (15-37); Albumin 3.7 g/dL (3.4-5.0); Alkaline Phosphatase 69 U/L (46-116); Anion Gap 4.7 mmol/L (3-11); BUN 19 mg/dL (7-18); Bilirubin, Total 0.6 mg/dL (0.2-1.0); C-Reactive Protein 0.18 mg/dL (0.0-0.3); CO2 31.3 mmol/L (21.0-32.0); CREATININE 0.9 mg/dL (0.55-1.02); Calcium 9.7 mg/dL (8.5-10.1); Chloride 101 mmol/L (98-107); Estimated GFR 68.77 (mL/min/1.73m2); Glucose 83 mg/dL (74-106); Potassium 3.7 mmol/L (3.5-5.1); Sodium 137 mmol/L (136-145); Total Protein 7.5 g/dL (6.4-8.2)
[2023-02-05] MEDS: Normal Saline Flush 10 ML SYR IVP (09:21)
[2023-02-05] MEDS: ABATACEPT 750 MG in Normal Saline 100 ML 200 MG IVPB (09:21)
[2023-02-05 11:45] LABS: Hemoglobin A1C 6.4 % (<5.7)
== END 2023-02-28 23:59 | disposition home or self-care (01) ==
LOC: INF 03:30
PROVIDERS: PCP Nurse Practitioner Adult Health; Visit Provider Nurse Practitioner Acute Care
DX: M05.79 Rheumatoid arthritis with rheumatoid factor of multiple sites without organ or systems involvement (principal); E11.9 Type 2 diabetes mellitus without complications
CPT/HCPCS: 36415; 80053; 96365; 83036; 85025; 86140; J0129

== ENCOUNTER 2023-03-05 01:21 | Outpatient (CLI) | payer MEDICARE, BC, SELFPAY ==
--- NOTE | 2023-03-05 07:15 | DI.US_ITS ---
APPROVED REPORT EXAM: Comprehensive 2D, Doppler, and color-flow Echocardiogram Patient Location: Out-Patient Drafter Chief Design: Zaid Rooney RDMS RVT Indications: moderate Other Information Study Quality: Adequate Conclusion Normal left ventricular wall thickness and chamber size. Ejection fraction is 60%. Wall motion is n ormal Normal right ventricular size and systolic function Left atrium is moderately dilated. Right atrial size is normal Aortic valve is calcified and probably trileaflet. There is moderate aortic stenosis. Peak gradient is 53, mean 32 mmHg. Calculated aortic valve area is 1.21 cm??. There is trace aortic regurgitatio n Moderate to severe mitral annular calcification. Moderate mitral regurgitation Estimated right ventricular systolic pressure is 24 mmHg Wall motion Left Ventricle Left ventricle is mildly dilated. The left ventricular systolic function is normal. The left ventricu lar ejection fraction is within the normal range. There is normal left ventricular wall thickness. Th ere is normal LV segmental wall motion. There is no ventricular septal defect visualized. LVEF is 60% . Right Ventricle The right ventricle is normal size. Right ventricular systolic function is grossly normal. The RVSP i s 23.9 mmHg. Atria Left atrium is moderately dilated. The right atrium size is normal. The interatrial septum is intact with no evidence for an atrial septal defect. Aortic Valve Aortic valve is calcified. Moderate aortic stenosis. Peak aortic valve gradient is 52.8 mmHg. Highest mean aortic valve gradient is 31.9 mmHg. Calculated GAVIN by the continuity equation is 1.21 cm2. Trac e aortic regurgitation. Mitral Valve Moderate to severe mitral annular calcification. No evidence of mitral valve stenosis. Moderate tanya l regurgitation. Tricuspid Valve The tricuspid valve is normal in structure. There is no tricuspid valve stenosis. Trace tricuspid reg urgitation. Pulmonic Valve The pulmonary valve is normal in structure. There is no pulmonic valvular stenosis. There is no pulmo natanael valvular regurgitation. Great Vessels The aortic root is normal in size. The ascending aorta is normal in size. Aortic arch is normal in ca liber. IVC is normal in size and collapses >50% with inspiration. Pericardium There is no pericardial effusion. 2D Dimensions IVSD d PLAX 0.81 cm F: 0.6-1.0 LV Vol A2C d MOD 76.8 mL LVPW d PLAX 0.81 cm F: 0.6 - 1.0 LV Vol A4C d MOD 92.5 mL LVID d PLAX 5.31 cm F: 3.8 - 5.2 LA vol/ BSA A4C s A-L 68.0 mL/m2 LVDs 3.55 cm F: 2.2 - 3.5 LA Area A4C s MOD 32.68 cm2 Ao Root d 2.80 cm F: 2.7 - 3.3 LV EF A4C MOD 58.9 % Ao Asc Diam d 3.35 cm F: 2.3 - 3.1 LV EF A2C MOD 59.1 % LV EF Teichholz 60.0 % LV EF Biplane MOD 59.3 % LVEF (Rivas's) 59.29 % F: 54 - 74 SV 53.90 mL LV Volume 70.15 mL F: 46 - 106 SV Index 29.29 mL/m2 LV Volume Index 38.12 mL/m2 F: 29 - 61 LV Vol Biplane MOD 90.9 mL FS 32.20 % M-Mode TAPSE 2.64 cm (M/F) >1.7 LV Diastology MV E' medial 0.142 (>0.07 m/s) E/A Ratio 0.8 LV E/e MED 7.95 (<14) MV E Vmax 1.13 (0.4-1.3 m/s) MV E' lateral 0.099 (>0.1 m/s) MV A Vmax 1.45 (0.4-1.3 m/s) LV E/e LAT 11.30 (<14) MV E/A Ratio 0.78 MV E/E' medial 7.95 MV E/E' lateral 11.34 Aortic Valve LVOT Area 3.28 cm2 AoV Area Vmax 1.21 cm2 LVOT Vmax 1.34 m/s AoV Area/ BSA (Vmax) 0.66 cm2/m2 LVOT Mean Brian. 0.89 m/s GAVIN Mean Brian. 1.09 cm2 LVOT Peak Grad 7.2 mmHg GAVIN Mean Brian. Index 0.59 cm2/m2 LVOT Mean Grad 3.7 mmHg LVOT VTI 0.358 m LVOT Diam s 2.00 cm AoV Vmax 3.63 m/s Velocity Ratio 0.37 AoV Mean Brian. 2.70 m/s AoV Peak Grad 52.8 mmHg LVOT SV 117.48 mL AoV Mean Grad 31.9 mmHg AoV VTI 0.904 m AoV Area VTI 1.30 cm2 AoV Area/ BSA (VTI) 0.71 cm/m2 Mitral Valve MV DT 235 (160-240 msec) MV PHT 68 msec MV Area PHT 3.23 cm2 MV VTI 0.529 m MV Area VTI 2.22 (4.0-6.0 cm2) Pulmonary Valve PV Vmax 0.92 (0.5-1.5 m/s) RVOT Peak Gr. 1.75 mmHg PV Peak Grad 3.4 mmHg RVOT Mean Gr. 0.90 mmHg PV Mean Grad 1.9 mmHg RVOT VTI 0.153 m PV VTI 0.216 m RVOT Vmax 0.66 m/s Tricuspid Valve TR Peak Grad 20.8 mmHg TR Vmax 2.29 m/s RA Pressure 3.00 mmHg RVSP (TR) 23.9 mmHg
== END 2023-03-05 01:41 ==
LOC: DI 01:22
PROVIDERS: PCP Nurse Practitioner Adult Health; Visit Provider Internal Medicine Cardiovascular Disease
DX: I35.0 Nonrheumatic aortic (valve) stenosis (principal)
CPT/HCPCS: 93306; 96365; J0129

== ENCOUNTER 2023-03-05 02:20 | Outpatient (RCR) | payer MEDICARE, BC, SELFPAY ==
[2023-03-01 00:08] VITALS: BP 124/72; PULSE 80; RESP 18; TEMP 36.6
[2023-03-05] MEDS: ABATACEPT 750 MG in Normal Saline 100 ML 200 MG IVPB (08:37)
[2023-03-05] MEDS: Normal Saline Flush 10 ML SYR IVP (08:38)
== END 2023-03-31 23:59 | disposition home or self-care (01) ==
LOC: INF 02:20
PROVIDERS: PCP Nurse Practitioner Adult Health; Visit Provider Nurse Practitioner Acute Care
DX: M05.79 Rheumatoid arthritis with rheumatoid factor of multiple sites without organ or systems involvement (principal)
CPT/HCPCS: 96365; J0129

== ENCOUNTER 2023-03-14 08:12 | Outpatient (CLI) | payer MEDICARE, BC, SELFPAY ==
--- NOTE | 2023-03-14 08:00 | RT.EKG_ITS ---
APPROVED REPORT Exam: Resting ECG Reason for Exam: HTN Patient Location: O HR:74 bpm ECG Measurements Heart Rate 74 AXIS [place] 141 P 42 QRSd 106 QRS 6 QT 430 T -17 QTc 477 Conclusion Sinus rhythm...normal P axis, V-rate 50- 99 Left atrial enlargement...P, P'>60mS, <-0.15mV V1 Baseline wander in lead(s) V1
== END 2023-03-14 08:13 | disposition home or self-care (01) ==
LOC: DI.CARD 08:15
PROVIDERS: PCP Nurse Practitioner Adult Health; Visit Provider Internal Medicine Cardiovascular Disease
DX: I10 Essential (primary) hypertension (principal); I35.0 Nonrheumatic aortic (valve) stenosis
CPT/HCPCS: 93010

== ENCOUNTER → 2023-03-14 08:53 | Outpatient (BNVA) | payer MEDICARE, BC, SELFPAY | PROVIDERS: PCP Nurse Practitioner Adult Health; Visit Provider Internal Medicine Cardiovascular Disease | DX: I35.0 Nonrheumatic aortic (valve) stenosis (principal); E78.5 Hyperlipidemia, unspecified | CPT/HCPCS: 93005; 99214 ==

== ENCOUNTER 2023-04-30 01:32 | Outpatient (RCR) | payer MEDICARE, BC, SELFPAY ==
[2023-04-01 00:12] VITALS: BP 124/72; PULSE 80; RESP 18; TEMP 36.6
[2023-04-02] MEDS: ABATACEPT 750 MG in Normal Saline 100 ML 200 MG IVPB (09:23)
[2023-04-02] MEDS: Normal Saline Flush 10 ML SYR IVP (09:23)
[2023-04-30 08:50] LABS: Absolute Basophil Count 0.07 10^3/uL (0.0-0.2); Absolute Eosinophil Count 0.67 10^3/uL (0.0-0.7); Absolute Lymphocyte Count 1.79 10^3/uL (1.2-3.4); Absolute Monocyte Count 0.62 10^3/uL (0.1-0.8); Absolute Neutrophil Count 2.47 10^3/uL (1.2-6.7); Basophils % 1.2; Eosinophils % 11.9; HCT 43.7 % (36.0-46.0); HGB 14.5 g/dL (11.2-15.7); Lymphocytes % 31.9; MCH 29.1 pg (27.0-33.0); MCHC 33.2 % (32.0-36.0); MCV 88 fL (80-95); MPV 9.9 fL (8.0-11.0); Platelet Count 258 10^3/uL (130-400); RBC 4.99 10^6/uL (3.93-5.22); RDW 12.4 % (11.7-14.6); RDW-SD 39.5 fL; WBC 5.62 10^3/uL (4.4-10.8)
[2023-04-30] MEDS: ABATACEPT 750 MG in Normal Saline 100 ML 200 MG IVPB (09:01)
[2023-04-30] MEDS: Normal Saline Flush 10 ML SYR IVP (09:01)
[2023-04-30 09:08] LABS: ALT 10 U/L (14-59); AST 14 U/L (15-37); Albumin 3.4 g/dL (3.4-5.0); Alkaline Phosphatase 74 U/L (46-116); Anion Gap 9.1 mmol/L (3-11); BUN 28 mg/dL (7-18); Bilirubin, Total 0.6 mg/dL (0.2-1.0); C-Reactive Protein 0.06 mg/dL (0.0-0.3); CO2 28.9 mmol/L (21.0-32.0); Calcium 8.6 mg/dL (8.5-10.1); Chloride 103 mmol/L (98-107); Estimated GFR 60.23 (mL/min/1.73m2); Glucose 156 mg/dL (74-106); Potassium 3.3 mmol/L (3.5-5.1); Sodium 141 mmol/L (136-145); Total Protein 6.7 g/dL (6.4-8.2)
[2023-04-30 09:37] LABS: Hemoglobin A1C 6.5 % (<5.7)
== END 2023-05-01 23:59 | disposition home or self-care (01) ==
LOC: INF 01:32
PROVIDERS: Internal Medicine Rheumatology; PCP Nurse Practitioner Adult Health; Visit Provider Nurse Practitioner Acute Care
DX: M05.79 Rheumatoid arthritis with rheumatoid factor of multiple sites without organ or systems involvement (principal)
CPT/HCPCS: 36415; 80053; 96365; 83036; 85025; 86140; J0129

== ENCOUNTER 2023-05-28 02:31 | Outpatient (RCR) | payer MEDICARE, BC, SELFPAY ==
[2023-05-02 00:19] VITALS: BP 124/72; PULSE 80; RESP 18; TEMP 36.6
[2023-05-28] MEDS: ABATACEPT 750 MG in Normal Saline 100 ML 200 MG IVPB (08:52)
[2023-05-28] MEDS: Normal Saline Flush 10 ML SYR IVP (08:52)
== END 2023-05-31 23:59 | disposition home or self-care (01) ==
LOC: INF 02:31
PROVIDERS: PCP Nurse Practitioner Adult Health; Visit Provider Nurse Practitioner Acute Care
DX: M05.79 Rheumatoid arthritis with rheumatoid factor of multiple sites without organ or systems involvement (principal)
CPT/HCPCS: 96365; J0129

== ENCOUNTER 2023-06-25 03:16 | Outpatient (RCR) | payer MEDICARE, BC, SELFPAY ==
[2023-06-01 00:06] VITALS: BP 124/72; PULSE 80; RESP 18; TEMP 36.6
[2023-06-25] MEDS: ABATACEPT 750 MG in Normal Saline 100 ML 200 MG IVPB (09:14)
[2023-06-25] MEDS: Normal Saline Flush 10 ML SYR IVP (09:14)
== END 2023-07-01 23:59 | disposition home or self-care (01) ==
LOC: INF 03:16
PROVIDERS: PCP Nurse Practitioner Adult Health; Visit Provider Nurse Practitioner Acute Care
DX: M06.9 Rheumatoid arthritis, unspecified (principal)
CPT/HCPCS: 96365; J0129

== ENCOUNTER 2023-07-22 02:52 | Outpatient (RCR) | payer MEDICARE, BC, SELFPAY ==
[2023-07-02 00:17] VITALS: BP 124/72; PULSE 80; RESP 18; TEMP 36.6
[2023-07-22 08:51] LABS: Abs Immature Grans 0.02 10^3/uL (0.0-0.06); Absolute Basophil Count 0.08 10^3/uL (0.0-0.2); Absolute Eosinophil Count 0.49 10^3/uL (0.0-0.7); Absolute Lymphocyte Count 1.74 10^3/uL (1.2-3.4); Absolute Monocyte Count 0.64 10^3/uL (0.1-0.8); Absolute Neutrophil Count 3.16 10^3/uL (1.2-6.7); Basophils % 1.3; HGB 15.5 g/dL (11.2-15.7); Immature Grans % 0.3; Lymphocytes % 28.4; MCH 29.6 pg (27.0-33.0); MCHC 33.7 % (32.0-36.0); MCV 88 fL (80-95); MPV 10.4 fL (8.0-11.0); Monocytes % 10.4; Neutrophils % 51.6; Platelet Count 249 10^3/uL (130-400); RBC 5.23 10^6/uL (3.93-5.22); RDW 12.2 % (11.7-14.6); RDW-SD 39.5 fL; WBC 6.13 10^3/uL (4.4-10.8)
[2023-07-22] MEDS: ABATACEPT 750 MG in Normal Saline 100 ML 200 MG IVPB (08:58)
[2023-07-22] MEDS: Normal Saline Flush 10 ML SYR IVP (08:58)
[2023-07-22 09:04] LABS: Hemoglobin A1C 6.7 % (<5.7)
[2023-07-22 09:31] LABS: ALT 12 U/L (14-59); AST 16 U/L (15-37); Albumin 3.5 g/dL (3.4-5.0); Alkaline Phosphatase 69 U/L (46-116); BUN 18 mg/dL (7-18); Bilirubin, Total 0.9 mg/dL (0.2-1.0); C-Reactive Protein 0.06 mg/dL (0.0-0.3); Calcium 9.5 mg/dL (8.5-10.1); Chloride 101 mmol/L (98-107); Estimated GFR 60.23 (mL/min/1.73m2); Glucose 137 mg/dL (74-106); Potassium 3.2 mmol/L (3.5-5.1); Sodium 137 mmol/L (136-145); Total Protein 6.9 g/dL (6.4-8.2)
== END 2023-07-31 23:59 | disposition home or self-care (01) ==
LOC: INF 02:52
PROVIDERS: PCP Nurse Practitioner Adult Health; Visit Provider Nurse Practitioner Acute Care
DX: M05.79 Rheumatoid arthritis with rheumatoid factor of multiple sites without organ or systems involvement (principal); E11.9 Type 2 diabetes mellitus without complications
CPT/HCPCS: 36415; 80053; 96365; 83036; 85025; 86140; J0129

== ENCOUNTER 2023-08-20 03:47 | Outpatient (RCR) | payer MEDICARE, BC, SELFPAY ==
[2023-08-01 00:09] VITALS: BP 124/72; PULSE 80; RESP 18; TEMP 36.6
[2023-08-20] MEDS: ABATACEPT 750 MG in Normal Saline 100 ML 200 MG IVPB (08:51)
[2023-08-20] MEDS: Normal Saline Flush 10 ML SYR IVP (08:51)
== END 2023-08-31 23:59 | disposition home or self-care (01) ==
LOC: INF 03:47
PROVIDERS: PCP Nurse Practitioner Adult Health; Visit Provider Nurse Practitioner Acute Care
DX: M05.79 Rheumatoid arthritis with rheumatoid factor of multiple sites without organ or systems involvement (principal)
CPT/HCPCS: 96365; J0129

== ENCOUNTER 2023-09-17 02:30 | Outpatient (RCR) | payer MEDICARE, BC, SELFPAY ==
[2023-09-01 00:18] VITALS: BP 124/72; PULSE 80; RESP 18; TEMP 36.6
[2023-09-17] MEDS: ABATACEPT 750 MG in Normal Saline 100 ML 200 MG IVPB (08:46)
[2023-09-17] MEDS: Normal Saline Flush 10 ML SYR IVP (08:46)
== END 2023-10-01 23:59 | disposition home or self-care (01) ==
LOC: INF 02:30
PROVIDERS: PCP Nurse Practitioner Adult Health; Visit Provider Nurse Practitioner Acute Care
DX: M05.79 Rheumatoid arthritis with rheumatoid factor of multiple sites without organ or systems involvement (principal)
CPT/HCPCS: 96365; J0129

== ENCOUNTER → 2023-09-19 00:31 | Outpatient (CLI) | payer MEDICARE, BC, SELFPAY ==
--- NOTE | 2023-09-19 07:15 | DI.MAMMO_ITS ---
Exam(s) MAMMO SCREENING EXAM: MAMMO SCREENING CLINICAL HISTORY: screening,z12.39. TECHNIQUE: Bilateral full field digital CC and MLO mammographic images were obtained with 3D tomosyn thesis and utilizing computer aided detection (CAD). COMPARISON: Prior mammograms were reviewed. FINDINGS: There are no new significant mammographic findings in the right breast. In the left breast on 3D cc imaging there is a subtle suggestion of 1, possibly 2 noncalcified nodula r densities lateral of center approximately 6 cm in from the nipple. Spot compression recommended There are no new malignant appearing microcalcification groups. There is no significant architectural distortion nor skin thickening-retraction. IMPRESSION: 1. No radiographic evidence of malignancy in the right breast. 2. Too subtle asymmetric densities-possible nodules towards the lateral aspect of the left breast as described above. Spot compression CC views and breast ultrasound recommended. BI-RADS Category 0 - Assessment Incomplete: Need additional imaging evaluation Breast Density - Category C - Heterogeneously dense Breast density Category C or D implies that the patient has dense breast tissue. Dense breast tissue can make it harder to find cancer on a mammogram. Dense breast tissue is also associated with an incr eased risk of breast cancer. This information about the result of the mammogram report was provided to the patient to raise their awareness. Use this report when you speak with the patient about their risks for breast cancer, which includes their family history. At that time, you may recommend additional screening tests (Ultrasoun d or MRI) as these tests may add significant information. A negative radiographic report should not delay biopsy if a dominant or clinically suspicious mass is present. Up to ten percent of cancers are not identified on mammography. A negative report may reinforce clinical impression. Adenosis and dense breasts may obscure an underlying neoplasm. False positive reports average 6 to 10%. Patient will receive a letter notifying them of these results.
== END ==
PROVIDERS: PCP Nurse Practitioner Adult Health; Visit Provider Nurse Practitioner Adult Health
DX: Z12.31 Encounter for screening mammogram for malignant neoplasm of breast (principal)
CPT/HCPCS: 77063; 77067

== ENCOUNTER → 2023-09-26 00:35 | Outpatient (CLI) | payer MEDICARE, BC, SELFPAY ==
--- NOTE | 2023-09-26 | DI.MAMMO_ITS ---
Exam(s) MG MAMMO SCREEN CALL BACK UNI US BREAST LT COMPLETE EXAM: MG MAMMO SCREEN CALL BACK UNI CLINICAL HISTORY: ASYMMETRIC DENSITIES LEFT BREAST POSSIBLE NODULES R92.8 ABNL MAMMO. TECHNIQUE: Craniocaudal and mediolateral oblique spot compression digital Mammography views of the l eftbreast with Tomosynthesis and left breast ultrasound. COMPARISON: US US BREAST RT LIMITED from 08/01/2021 MG MG MAMMO SCREEN CALL BACK BI from 08/01/2021 US US BREAST LT LIMITED from 08/01/2021 MG MG MAMMO DIAGNOSTIC BI from 03/01/2022 MG MG MAMMO SCREENING from 09/19/2023 FINDINGS: Mammography/Tomosynthesis: Masses/Architectural Distortion: None seen. Microcalcifictions: No suspicious pleomorphic-type are seen. Skin Thickening/Nipple Retraction: None. Left breast US: Echotexture: Dense tissue in lateral left breast.. Shadowing: No suspicious foci. Cyst: None. Solid lesions: None seen. Ductal dilation: None. IMPRESSION: 1. No evidence of malignancy is noted. 2. Unless there is more urgent need, follow-up screening mammography is recommended, as per [employer] guidelines. 3. The findings were discussed with the patient on the date of the examination. BI-RADS Category 2 - Benign Findings Breast Density - Category C - Heterogeneously dense A mammogram that demonstrates density of C or D indicates the patient's breast tissue is dense. Dense breast tissue is very common and is not abnormal, but dense breast tissue can make it harder to find cancer on a mammogram. Also, dense breast tissue may increase their breast cancer risk. This informa tion about the result of the mammogram report was provided to the patient to raise their awareness. U se this report when you speak with the patient about their risks for breast cancer, which includes th eir family history. At that time, you may recommend for more screening tests (Ultrasound or MRI) as t hey might be useful based on their risk. A negative radiographic report should not delay biopsy if a dominant or clinically suspicious mass is present. Up to ten percent of cancers are not identified on mammography. A negative report may reinforce clinical impression. Adenosis and dense breasts may obscure an underlying neoplasm. False positive reports average 6 to 10%. Patient will receive a letter notifying them of these results.
== END ==
PROVIDERS: PCP Nurse Practitioner Adult Health; Visit Provider Nurse Practitioner Adult Health
DX: R92.8 Other abnormal and inconclusive findings on diagnostic imaging of breast (principal); Z12.31 Encounter for screening mammogram for malignant neoplasm of breast
CPT/HCPCS: 76642; 77063; 77067

== ENCOUNTER 2023-10-15 02:27 | Outpatient (RCR) | payer MEDICARE, BC, SELFPAY ==
[2023-10-02 00:23] VITALS: BP 124/72; PULSE 80; RESP 18; TEMP 36.6
[2023-10-15] MEDS: ABATACEPT 750 MG in Normal Saline 100 ML 200 MG IVPB (08:43)
[2023-10-15] MEDS: Normal Saline Flush 10 ML SYR IVP (08:43)
[2023-10-15 08:44] LABS: Abs Immature Grans 0.02 10^3/uL (0.0-0.06); Absolute Basophil Count 0.07 10^3/uL (0.0-0.2); Absolute Eosinophil Count 0.71 10^3/uL (0.0-0.7); Absolute Lymphocyte Count 1.55 10^3/uL (1.2-3.4); Absolute Monocyte Count 0.56 10^3/uL (0.1-0.8); Basophils % 1.1; Eosinophils % 11.3; HCT 45.2 % (36.0-46.0); HGB 14.9 g/dL (11.2-15.7); Immature Grans % 0.3; Lymphocytes % 24.6; MCH 28.6 pg (27.0-33.0); MCV 87 fL (80-95); MPV 9.9 fL (8.0-11.0); Monocytes % 8.9; Neutrophils % 53.8; Platelet Count 266 10^3/uL (130-400); RBC 5.21 10^6/uL (3.93-5.22); RDW-SD 38.5 fL; WBC 6.31 10^3/uL (4.4-10.8)
[2023-10-15 08:58] LABS: Hemoglobin A1C 6.5 % (<5.7)
[2023-10-15 09:09] LABS: ALT 13 U/L (14-59); AST 12 U/L (15-37); Albumin 3.5 g/dL (3.4-5.0); Alkaline Phosphatase 76 U/L (46-116); Anion Gap 12.3 mmol/L (3-11); BUN 23 mg/dL (7-18); Bilirubin, Total 0.8 mg/dL (0.2-1.0); C-Reactive Protein < 0.50 mg/dL (<or=0.5); CO2 27.7 mmol/L (21.0-32.0); Calcium 9.5 mg/dL (8.5-10.1); Chloride 101 mmol/L (98-107); Estimated GFR 60.23 (mL/min/1.73m2); Glucose 182 mg/dL (74-106); Potassium 3.1 mmol/L (3.5-5.1); Sodium 141 mmol/L (136-145); Total Protein 7.1 g/dL (6.4-8.2)
== END 2023-10-30 23:59 | disposition home or self-care (01) ==
LOC: INF 02:27
PROVIDERS: Internal Medicine Rheumatology; PCP Nurse Practitioner Adult Health; Visit Provider Nurse Practitioner Acute Care
DX: M05.79 Rheumatoid arthritis with rheumatoid factor of multiple sites without organ or systems involvement (principal); E11.9 Type 2 diabetes mellitus without complications
CPT/HCPCS: 36415; 80053; 96365; 83036; 85025; 86140; J0129

== ENCOUNTER → 2023-10-22 14:16 | Outpatient (CLI) | payer MEDICARE, BC, SELFPAY ==
--- NOTE | 2023-10-22 13:15 | DI.RAD_ITS ---
Exam(s) XR CHEST 2V PA LATERAL EXAM: XR CHEST 2V PA LATERAL CLINICAL HISTORY: cough, r05.9,? pneumonia. TECHNIQUE: 2D digital imaging was performed. COMPARISON: CR XR CHEST 2V PA LATERAL from 02/09/2021 FINDINGS: 2 views: Heart size is normal. The mediastinum is not widened. Right lung is clear. Mild increased markings noted in the lingular segment left lung but less than p reviously present. No pleural effusions. No pulmonary edema. IMPRESSION: Mild residual increased markings in the inferior lingular segment left lung. DATA REPOSITORY: RADIATION DOSE DELIVERED:
== END ==
PROVIDERS: PCP Nurse Practitioner Adult Health; Visit Provider Nurse Practitioner Adult Health
DX: R05.9 Cough, unspecified (principal)
CPT/HCPCS: 71046

== ENCOUNTER 2023-11-12 03:43 | Outpatient (RCR) | payer MEDICARE, BC, SELFPAY ==
[2023-10-31 00:23] VITALS: BP 124/72; PULSE 80; RESP 18; TEMP 36.6
[2023-11-12] MEDS: ABATACEPT 750 MG in Normal Saline 100 ML 200 MG IVPB (10:49)
[2023-11-12] MEDS: Normal Saline Flush 10 ML SYR IVP (10:49)
== END 2023-11-30 23:59 | disposition home or self-care (01) ==
LOC: INF 03:43
PROVIDERS: PCP Nurse Practitioner Adult Health; Visit Provider Nurse Practitioner Acute Care
DX: M05.79 Rheumatoid arthritis with rheumatoid factor of multiple sites without organ or systems involvement (principal)
CPT/HCPCS: 96365; J0129

== ENCOUNTER 2023-12-10 05:26 | Outpatient (RCR) | payer MEDICARE, BC, SELFPAY ==
[2023-12-01 00:20] VITALS: BP 124/72; PULSE 80; RESP 18; TEMP 36.6
[2023-12-10] MEDS: ABATACEPT 750 MG in Normal Saline 100 ML 200 MG IVPB (08:47)
[2023-12-10] MEDS: Normal Saline Flush 10 ML SYR IVP (08:47)
== END 2023-12-30 23:59 | disposition home or self-care (01) ==
LOC: INF 05:26
PROVIDERS: PCP Nurse Practitioner Adult Health; Visit Provider Nurse Practitioner Acute Care
DX: M05.79 Rheumatoid arthritis with rheumatoid factor of multiple sites without organ or systems involvement (principal); Z79.899 Other long term (current) drug therapy
CPT/HCPCS: 96365; J0129

== ENCOUNTER 2023-12-18 13:11 | Outpatient (CLI) | payer MEDICARE, BC, SELFPAY ==
--- NOTE | 2023-12-18 13:00 | RT.EKG_ITS ---
APPROVED REPORT Exam: Resting ECG Reason for Exam: baseline Patient Location: O HR:72 bpm ECG Measurements Heart Rate 72 AXIS [place] 131 P 32 QRSd 99 QRS 5 QT 415 T 32 QTc 455 Conclusion Sinus rhythm...normal P axis, V-rate 50- 99 Probable left atrial enlargement...P >50mS, <-0.10mV V1 Baseline wander in lead(s) V4,V5 Otherwise normal ECG
== END 2023-12-18 13:12 | disposition home or self-care (01) ==
LOC: DI.CARD 13:13
PROVIDERS: PCP Nurse Practitioner Adult Health; Referring Provider Nurse Practitioner Adult Health; Visit Provider Internal Medicine Cardiovascular Disease
DX: I10 Essential (primary) hypertension (principal); R94.31 Abnormal electrocardiogram [ECG] [EKG]
CPT/HCPCS: 93010

== ENCOUNTER → 2023-12-18 13:11 | Outpatient (BNVA) | payer MEDICARE, BC, SELFPAY | PROVIDERS: PCP Nurse Practitioner Adult Health; Referring Provider Nurse Practitioner Adult Health; Visit Provider Internal Medicine Cardiovascular Disease | DX: Z01.810 Encounter for preprocedural cardiovascular examination (principal); I35.0 Nonrheumatic aortic (valve) stenosis | CPT/HCPCS: 93005; 99213 ==

== ENCOUNTER 2024-01-09 01:10 | Outpatient (RCR) | payer MEDICARE, BC, SELFPAY ==
[2023-12-31 00:26] VITALS: BP 124/72; PULSE 80; RESP 18; TEMP 36.6
[2024-01-09] MEDS: Normal Saline Flush 10 ML SYR IVP (08:53)
[2024-01-09] MEDS: ABATACEPT 750 MG in Normal Saline 100 ML 200 MG IVPB (08:53)
[2024-01-09 08:59] LABS: Abs Immature Grans 0.02 10^3/uL (0.0-0.06); Absolute Eosinophil Count 0.47 10^3/uL (0.0-0.7); Absolute Monocyte Count 0.58 10^3/uL (0.1-0.8); Absolute Neutrophil Count 3.59 10^3/uL (1.2-6.7); Basophils % 1.5 %; Eosinophils % 7.3 %; HGB 14.8 g/dL (11.2-15.7); Immature Grans % 0.3 %; Lymphocytes % 26.3 %; MCH 29.4 pg (27.0-33.0); MCHC 32.9 % (32.0-36.0); MCV 90 fL (80-95); MPV 9.9 fL (8.0-11.0); Neutrophils % 55.6 %; Platelet Count 246 10^3/uL (130-400); RBC 5.03 10^6/uL (3.93-5.22); RDW 12.7 % (11.7-14.6); RDW-SD 41.4 fL; WBC 6.46 10^3/uL (4.4-10.8)
[2024-01-09 09:29] LABS: ALT 12 U/L (14-59); AST 15 U/L (15-37); Albumin 3.6 g/dL (3.4-5.0); Alkaline Phosphatase 77 U/L (46-116); Anion Gap 9.6 mmol/L (3-11); BUN 26 mg/dL (7-18); Bilirubin, Total 0.8 mg/dL (0.2-1.0); C-Reactive Protein < 0.50 mg/dL (<or=0.5); CO2 29.4 mmol/L (21.0-32.0); CREATININE 1.2 mg/dL (0.55-1.02); Calcium 9.1 mg/dL (8.5-10.1); Chloride 103 mmol/L (98-107); Estimated GFR 48.39 (mL/min/1.73m2); Glucose 132 mg/dL (74-106); Potassium 3.7 mmol/L (3.5-5.1); Sodium 142 mmol/L (136-145)
[2024-01-09 09:35] LABS: Hemoglobin A1C 6.9 % (<5.7)
== END 2024-01-30 23:59 | disposition home or self-care (01) ==
LOC: INF 01:10
PROVIDERS: PCP Nurse Practitioner Adult Health; Visit Provider Nurse Practitioner Acute Care
DX: M05.79 Rheumatoid arthritis with rheumatoid factor of multiple sites without organ or systems involvement (principal)
CPT/HCPCS: 36415; 80053; 96365; 83036; 85025; 86140; J0129

== ENCOUNTER 2024-02-04 05:08 | Outpatient (RCR) | payer MEDICARE, BC, SELFPAY ==
[2024-01-31 00:10] VITALS: BP 124/72; PULSE 80; RESP 18; TEMP 36.6
[2024-02-04] MEDS: ABATACEPT 750 MG in Normal Saline 100 ML 200 MG IVPB (08:47)
[2024-02-04] MEDS: Normal Saline Flush 10 ML SYR IVP (09:26)
== END 2024-02-29 23:59 | disposition home or self-care (01) ==
LOC: INF 05:08
PROVIDERS: PCP Nurse Practitioner Adult Health; Visit Provider Nurse Practitioner Acute Care
DX: M05.79 Rheumatoid arthritis with rheumatoid factor of multiple sites without organ or systems involvement (principal)
CPT/HCPCS: 96365; J0129

== ENCOUNTER 2024-03-31 08:30 | Outpatient (RCR) | payer MEDICARE, BC, SELFPAY ==
[2024-03-01 00:20] VITALS: BP 124/72; PULSE 80; RESP 18; TEMP 36.6
[2024-03-05] MEDS: ABATACEPT 750 MG in Normal Saline 100 ML 200 MG IVPB (08:10)
[2024-03-05] MEDS: Normal Saline Flush 10 ML SYR IVP (08:10)
[2024-03-31] MEDS: ABATACEPT 750 MG in Normal Saline 100 ML 200 MG IVPB (08:29)
[2024-03-31] MEDS: Normal Saline Flush 10 ML SYR IVP (08:29)
[2024-03-31 09:36] LABS: Abs Immature Grans 0.03 10^3/uL (0.0-0.06); Absolute Basophil Count 0.08 10^3/uL (0.0-0.2); Absolute Eosinophil Count 0.63 10^3/uL (0.0-0.7); Absolute Monocyte Count 0.62 10^3/uL (0.1-0.8); Absolute Neutrophil Count 3.93 10^3/uL (1.2-6.7); Basophils % 1.1 %; Eosinophils % 8.5 %; HCT 46.4 % (36.0-46.0); HGB 15.2 g/dL (11.2-15.7); Immature Grans % 0.4 %; Lymphocytes % 28.4 %; MCH 29.7 pg (27.0-33.0); MCHC 32.8 % (32.0-36.0); MCV 91 fL (80-95); MPV 10.3 fL (8.0-11.0); Monocytes % 8.4 %; Neutrophils % 53.2 %; Platelet Count 241 10^3/uL (130-400); RBC 5.11 10^6/uL (3.93-5.22); RDW 12.5 % (11.7-14.6); RDW-SD 41.3 fL; WBC 7.39 10^3/uL (4.4-10.8)
[2024-03-31 09:52] LABS: ALT 15 U/L (14-59); AST 20 U/L (15-37); Albumin 3.8 g/dL (3.4-5.0); Alkaline Phosphatase 76 U/L (46-116); Anion Gap 7.4 mmol/L (3-11); BUN 31 mg/dL (7-18); Bilirubin, Total 0.52 mg/dL (0.2-1.0); C-Reactive Protein < 0.50 mg/dL (<or=0.5); CO2 32.6 mmol/L (21.0-32.0); Calcium 9.2 mg/dL (8.5-10.1); Chloride 101 mmol/L (98-107); Estimated GFR 59.86 (mL/min/1.73m2); Glucose 157 mg/dL (74-106); Potassium 3.5 mmol/L (3.5-5.1); Sodium 141 mmol/L (136-145); Total Protein 7.5 g/dL (6.4-8.2)
[2024-03-31 16:49] LABS: Hemoglobin A1C 6.4 % (<5.7)
== END 2024-03-31 23:59 | disposition home or self-care (01) ==
LOC: INF 08:30
PROVIDERS: PCP Nurse Practitioner Adult Health; Visit Provider Family Medicine
DX: M05.79 Rheumatoid arthritis with rheumatoid factor of multiple sites without organ or systems involvement (principal); E11.9 Type 2 diabetes mellitus without complications
CPT/HCPCS: 36415; 80053; 96365; 83036; 85025; 86140; J0129

== ENCOUNTER 2024-04-15 02:20 | Outpatient (CLI) | payer MEDICARE, BC, SELFPAY ==
--- NOTE | 2024-04-15 | DI.DEXA_ITS ---
Exam(s) XR DEXA BONE DENSITY W/WO JOSEPH EXAM: XR DEXA BONE DENSITY W/WO JOSEPH CLINICAL HISTORY: M81.0 Postmenopausal osteoporosis TECHNIQUE: Routine DEXA evaluation of the lumbar spine, hip, or forearm. COMPARISON: No exams were available for comparison FINDINGS: Performed on a Hologic unit. Lateral image: No compression fracture evident. Lumbar Spine total T-score: -1.2 Hip total T-score:-0.4 Independent reading at the level of the femoral neck yields T-score of -1.0 Forearm total T-score: -1.1 IMPRESSION: Bone mineral density measures in the osteopenia range. Fracture risk is moderate. Note: Any spine fracture indicates 5x risk for subsequent spine fracture and 2x risk for subsequent h ip fracture. World Health Organization criteria for BMD interpretation classify patients: Normal...... T- Score at or above -1.0 Osteopenic... T- Score between -1.0 and -2.5 Osteoporosis... T-Score at or below -2.5
== END 2024-04-15 02:40 ==
LOC: DI 02:20
PROVIDERS: PCP Nurse Practitioner Adult Health; Visit Provider Internal Medicine Rheumatology
DX: M81.0 Age-related osteoporosis without current pathological fracture (principal); Z13.820 Encounter for screening for osteoporosis; Z78.0 Asymptomatic menopausal state
CPT/HCPCS: 77080

== ENCOUNTER 2024-04-27 02:37 | Outpatient (RCR) | payer MEDICARE, BC, SELFPAY ==
[2024-04-01 00:12] VITALS: BP 124/72; PULSE 80; RESP 18; TEMP 36.6
[2024-04-27] MEDS: ABATACEPT 750 MG in Normal Saline 100 ML 200 MG IVPB (08:25)
[2024-04-27] MEDS: Normal Saline Flush 10 ML SYR IVP (08:26)
== END 2024-05-01 23:59 | disposition home or self-care (01) ==
LOC: INF 02:37
PROVIDERS: PCP Nurse Practitioner Adult Health; Visit Provider Family Medicine
DX: M05.79 Rheumatoid arthritis with rheumatoid factor of multiple sites without organ or systems involvement (principal); Z79.899 Other long term (current) drug therapy
CPT/HCPCS: 96365; J0129

== ENCOUNTER 2024-05-19 02:03 | Outpatient (CLI) | payer MEDICARE, BC, SELFPAY ==
--- NOTE | 2024-05-19 08:30 | DI.US_ITS ---
APPROVED REPORT EXAM: Comprehensive 2D, Doppler, and color-flow Echocardiogram Patient Location: Out-Patient [facility] Operator: Aarti Ribeiro RDCS (AE) Indications: Essential HTN, Aortic stenosis Other Information Study Quality: Adequate Conclusion Normal left ventricular wall thickness and chamber size. Ejection fraction is 60%. Wall motion is n ormal Normal right ventricular size and function Left atrium is moderately dilated. Normal right atrial size Aortic valve is calcified probably trileaflet. There is moderate to severe aortic stenosis. Mean gr adient is 44 mmHg. Calculated aortic valve area is 0.85 cm??. There is trace aortic regurgitation Severe mitral annular calcification. Moderate central mitral regurgitation Minimally dilated ascending aorta 3.39 cm Wall motion Left Ventricle The left ventricle is normal size. The left ventricular systolic function is normal. The left ventric ular ejection fraction is within the normal range. There is normal left ventricular wall thickness. T here is normal LV segmental wall motion. There is no ventricular septal defect visualized. LVEF is 60 %. Right Ventricle The right ventricle is normal size. The right ventricular systolic function is normal. Atria Left atrium is moderately dilated. The right atrium size is normal. The interatrial septum is intact with no evidence for an atrial septal defect. Aortic Valve Aortic valve is calcified. Aortic valve is probably trileaflet. Moderate aortic stenosis. Highest justus n aortic valve gradient is 43.69mmHg. Peak aortic valve gradient is 56.03_mmHg. Calculated GAVIN by the continuity equation is .9cm2. Trace aortic regurgitation. Mitral Valve Severe mitral annular calcification. No evidence of mitral valve stenosis. Moderate mitral regurgita tion. Tricuspid Valve The tricuspid valve is normal in structure. There is no tricuspid valve stenosis. Trace to mild tricu spid regurgitation. Unable to assess PA pressure. Pulmonic Valve The pulmonary valve is normal in structure. There is no pulmonic valvular stenosis. There is no pulmo natanael valvular regurgitation. Great Vessels The aortic root is normal in size. The ascending aorta is mildly dilated. Aortic arch is normal in ca liber. IVC is normal in size and collapses >50% with inspiration. Pericardium There is no pericardial effusion. 2D Dimensions IVSD d PLAX 1.00 cm F: 0.6-1.0 Ao Root d 2.96 cm F: 2.7 - 3.3 LVPW d PLAX 1.00 cm F: 0.6 - 1.0 Ao Asc Diam d 3.39 cm F: 2.3 - 3.1 LVID d PLAX 4.30 cm F: 3.8 - 5.2 LVDs 2.97 cm F: 2.2 - 3.5 LV EF Teichholz 58.1 % FS 30.34 % LV EDV (Teich) 81.2 mL LV ESV (Teich) 34.1 mL M-Mode TAPSE 2.53 cm (M/F) >1.7 Auto EF LV EDV A4C 87.9 mL LV EDV A2C 83.9 mL LV EDV BP 85.5 mL LV ESV A4C 34.4 mL LV ESV A2C 34.1 mL LV ESV BP 34.1 mL LVEF(%) A4C 60.9 % LVEF(%) A2C 59.3 % LVEF(%) BP 60.1 % LV SV A4C 53.6 ml LV SV A2C 49.8 ml LV SV BP 51.4 ml LV CO A4C 4.1 L/min LV CO A2C 3.5 L/min LV CO BP 3.8 L/min HR A4C 75.79 BPM HR A2C 71.15 BPM LV EDV Index (BP) LA Volume LA Length A4C 6.0 cm LA Length A2C 6.2 cm LA Area A4C s 22.21 cm2 LA Area A2C s 28.22 cm2 LA Vol A4C A-L 69.89 mL LA Vol A2C A-L 108.97 mL LA Vol Biplane A-L 88.8 mL LA Vol/BSA A4C A-L LA Vol/BSA A2C A-L LA Vol/BSA BP A-L 48.8 mL/m2 LA Vol A4C MOD 64.9 mL LA Vol A2C MOD 103.0 mL LA Vol BP MOD 82.9 mL RA Volume RA Area A4C 11.4 cm2 RA ESV A4C (A-L) 26.1mL RA Vol/BSA A4C A-L RA Length A4C 4.3 cm RA ESV A4C (MOD) 25.9mL LV Diastology MV E' medial 0.077 (>0.07 m/s) MV E Vmax 0.93 (0.4-1.3 m/s) MV E/E' MED 12.09 (<14) MV A Vmax 1.45 (0.4-1.3 m/s) MV E' lateral 0.077 (>0.1 m/s) E/A Ratio 0.6 MV E/E' LAT 12.09 (<14) MV E' Average 0.077 m/s MV E/E'(average) 12.09 Aortic Valve AoV Vmax 3.74 m/s LVOT Vmax 1.09 m/s AoV Peak Grad 56.0 mmHg LVOT Peak Grad 4.8 mmHg AoV Area (Vmax) 0.80 cm2 LVOT VTI 0.288 m AoV VTI 0.916 m LVOT Mean Grad 2.8 mmHg AoV Mean Brian. 3.27 m/s LVOT SV 79.19 mL AoV Mean Grad 43.7 mmHg LVOT Diam s 1.85 cm AoV Area (VTI) 0.86 cm2 AV Regurg Peak Gr. 56.03 mmHg Velocity Ratio 0.29 Mitral Valve MV DT 289 (160-240 msec) MV Vmax TIPS 1.37 m/s MV Mean Grad 2.4 (<2mmHg) MV VTI 0.401 m Pulmonary Valve PV Vmax 1.37 (0.5-1.5 m/s) RVOT Vmax 0.75 m/s PV Peak Grad 7.5 mmHg RVOT Peak Gr. 2.2 mmHg PV Mean Brian 0.96 m/s RVOT VTI 0.155 m PV Mean Grad 4.1 mmHg RVOT Mean Gr. 1.3 mmHg Tricuspid Valve RA Pressure 3.00 mmHg TV S' 0.17 m/s
== END 2024-05-19 02:23 ==
PROVIDERS: PCP Nurse Practitioner Adult Health; Visit Provider Internal Medicine Cardiovascular Disease
DX: I10 Essential (primary) hypertension (principal)
CPT/HCPCS: 93306

== ENCOUNTER → 2024-05-24 09:31 | Outpatient (BNVA) | payer MEDICARE, BC, SELFPAY | PROVIDERS: PCP Nurse Practitioner Adult Health; Visit Provider Internal Medicine Cardiovascular Disease ==

== ENCOUNTER 2024-05-24 09:57 | Outpatient (CLI) | payer MEDICARE, BC, SELFPAY ==
[2024-05-24 10:12] LABS: HCT 43.8 % (36.0-46.0); HGB 14.3 g/dL (11.2-15.7); MCHC 32.6 % (32.0-36.0); MCV 92 fL (80-95); MPV 9.4 fL (8.0-11.0); Platelet Count 243 10^3/uL (130-400); RBC 4.77 10^6/uL (3.93-5.22); RDW 12.1 % (11.7-14.6); RDW-SD 40.9 fL; WBC 5.81 10^3/uL (4.4-10.8)
[2024-05-24 10:27] LABS: Anion Gap 8.2 mmol/L (3-11); BUN 24 mg/dL (7-18); CO2 30.8 mmol/L (21.0-32.0); CREATININE 1.1 mg/dL (0.55-1.02); Calcium 9.6 mg/dL (8.5-10.1); Chloride 100 mmol/L (98-107); Estimated GFR 53.39 (mL/min/1.73m2); Glucose 140 mg/dL (74-106); Potassium 3.8 mmol/L (3.5-5.1); Sodium 139 mmol/L (136-145)
[2024-05-24 10:29] LABS: PTT Activated 24.3 sec (23.6-32.8); Prothrombin Time 10.2 sec (9.1-11.1)
== END 2024-05-24 09:58 | disposition home or self-care (01) ==
LOC: LBO 09:58
PROVIDERS: PCP Nurse Practitioner Adult Health; Visit Provider Internal Medicine Cardiovascular Disease
DX: I35.0 Nonrheumatic aortic (valve) stenosis (principal)
CPT/HCPCS: 36415; 80048; 85027; 85610; 85730; 99213

== ENCOUNTER 2024-05-26 02:13 | Outpatient (RCR) | payer MEDICARE, BC, SELFPAY ==
[2024-05-02 00:07] VITALS: BP 124/72; PULSE 80; RESP 18; TEMP 36.6
[2024-05-26] MEDS: Normal Saline Flush 10 ML SYR IVP (08:00)
[2024-05-26] MEDS: ABATACEPT 750 MG in Normal Saline 100 ML 200 MG IVPB (09:04)
== END 2024-05-31 23:59 | disposition home or self-care (01) ==
LOC: INF 02:13
PROVIDERS: PCP Nurse Practitioner Adult Health; Visit Provider Family Medicine
DX: M05.79 Rheumatoid arthritis with rheumatoid factor of multiple sites without organ or systems involvement (principal)
CPT/HCPCS: 96365; J0129

== ENCOUNTER 2024-07-28 01:48 | Outpatient (RCR) | payer MEDICARE, BC, SELFPAY ==
[2024-06-01 00:07] VITALS: BP 124/72; PULSE 80; RESP 18; TEMP 36.6
[2024-07-28] MEDS: Normal Saline Flush 10 ML SYR IVP (08:31)
[2024-07-28] MEDS: ABATACEPT 750 MG in Normal Saline 100 ML 200 MG IVPB (08:32)
[2024-07-28 08:59] LABS: Abs Immature Grans 0.02 10^3/uL (0.0-0.06); Absolute Basophil Count 0.09 10^3/uL (0.0-0.2); Absolute Lymphocyte Count 2.21 10^3/uL (1.2-3.4); Absolute Neutrophil Count 4.27 10^3/uL (1.2-6.7); Basophils % 1.1 %; Eosinophils % 8.8 %; HCT 45.2 % (36.0-46.0); HGB 14.6 g/dL (11.2-15.7); Immature Grans % 0.3 %; Lymphocytes % 27.7 %; MCH 29.6 pg (27.0-33.0); MCHC 32.3 % (32.0-36.0); MCV 92 fL (80-95); MPV 9.9 fL (8.0-11.0); Monocytes % 8.8 %; Neutrophils % 53.3 %; Platelet Count 300 10^3/uL (130-400); RBC 4.93 10^6/uL (3.93-5.22); RDW 12.5 % (11.7-14.6); RDW-SD 42.2 fL; WBC 7.99 10^3/uL (4.4-10.8)
[2024-07-28 09:12] LABS: Hemoglobin A1C 6.6 % (<5.7)
[2024-07-28 09:35] LABS: ALT 12 U/L (14-59); AST 14 U/L (15-37); Albumin 3.6 g/dL (3.4-5.0); Alkaline Phosphatase 87 U/L (46-116); Anion Gap 7.1 mmol/L (3-11); BUN 31 mg/dL (7-18); Bilirubin, Total 0.87 mg/dL (0.2-1.0); CO2 32.9 mmol/L (21.0-32.0); CREATININE 1.2 mg/dL (0.55-1.02); Calcium 9.1 mg/dL (8.5-10.1); Chloride 101 mmol/L (98-107); Estimated GFR 48.09 (mL/min/1.73m2); Glucose 190 mg/dL (74-106); Potassium 3.4 mmol/L (3.5-5.1); Sodium 141 mmol/L (136-145); Total Protein 7.2 g/dL (6.4-8.2)
[2024-07-28 09:36] LABS: C-Reactive Protein < 0.50 mg/dL (<or=0.5)
== END 2024-07-31 23:59 | disposition home or self-care (01) ==
LOC: INF 01:48
PROVIDERS: Internal Medicine Rheumatology; PCP Nurse Practitioner Adult Health; Visit Provider Nurse Practitioner Family
DX: M05.79 Rheumatoid arthritis with rheumatoid factor of multiple sites without organ or systems involvement (principal)
CPT/HCPCS: 36415; 80053; 96365; 83036; 85025; 86140; J0129

== ENCOUNTER 2024-08-23 02:16 | Outpatient (RCR) | payer MEDICARE, BC, SELFPAY ==
[2024-08-01 00:02] VITALS: BP 124/72; PULSE 80; RESP 18; TEMP 36.6
[2024-08-23] MEDS: Normal Saline Flush 10 ML SYR IVP (08:30)
[2024-08-23] MEDS: ABATACEPT 750 MG in Normal Saline 100 ML 200 MG IVPB (08:45)
== END 2024-08-31 23:59 | disposition home or self-care (01) ==
LOC: INF 02:16
PROVIDERS: PCP Nurse Practitioner Adult Health; Visit Provider Nurse Practitioner Family
DX: M05.79 Rheumatoid arthritis with rheumatoid factor of multiple sites without organ or systems involvement (principal)
CPT/HCPCS: 96365; J0129

== ENCOUNTER 2024-09-22 15:36 | Outpatient (RCR) | payer MEDICARE, BC, SELFPAY | END 2024-10-01 23:59 | disposition home or self-care (01) | LOC: CR 15:36 | PROVIDERS: PCP Nurse Practitioner Adult Health; Visit Provider Internal Medicine Cardiovascular Disease ==

== ENCOUNTER 2024-09-23 03:39 | Outpatient (RCR) | payer MEDICARE, BC, SELFPAY ==
[2024-09-01 00:19] VITALS: BP 124/72; PULSE 80; RESP 18; TEMP 36.6
[2024-09-23] MEDS: Normal Saline Flush 10 ML SYR IVP (08:28)
[2024-09-23] MEDS: ABATACEPT 750 MG in Normal Saline 100 ML 200 MG IVPB (08:28)
== END 2024-10-01 23:59 | disposition home or self-care (01) ==
LOC: INF 03:39
PROVIDERS: PCP Nurse Practitioner Adult Health; Visit Provider Nurse Practitioner Family
DX: M05.79 Rheumatoid arthritis with rheumatoid factor of multiple sites without organ or systems involvement (principal)
CPT/HCPCS: 96365; J0129

== ENCOUNTER 2024-10-18 12:01 | Outpatient (CLI) | payer MEDICARE, BC, SELFPAY ==
--- NOTE | 2024-10-18 11:45 | DI.RAD_ITS ---
Exam(s) XR CHEST 2V PA LATERAL EXAM: XR CHEST 2V PA LATERAL CLINICAL HISTORY: Cough, R05.9, s/p TAVR; r/o acute process TECHNIQUE: 2D digital imaging was performed of the chest. Two images were obtained. PA and lateral views were obtained. COMPARISON: CR XR CHEST 2V PA LATERAL from 10/22/2023 FINDINGS: MEDIASTINUM: Normal. HEART: There is an aortic valve replacement. Extensive mitral calcification is also present. PULMONARY VASCULATURE: Normal. LUNGS: Clear. PLEURAL SPACE: No pleural effusion or pneumothorax. BONE:Within normal limits for the patient's age. OTHER FINDINGS:Normal. IMPRESSION: No acute pulmonary findings. DATA REPOSITORY: RADIATION DOSE DELIVERED:
== END 2024-10-18 12:21 ==
LOC: DI 12:02
PROVIDERS: PCP Nurse Practitioner Adult Health; Visit Provider Nurse Practitioner Adult Health
DX: R05.9 Cough, unspecified (principal)
CPT/HCPCS: 71046

== ENCOUNTER 2024-10-25 12:30 | Outpatient (CLI) | payer MEDICARE, BC, SELFPAY ==
[2024-10-25 09:25] LABS: Anion Gap 9.3 mmol/L (3-11); BUN 17 mg/dL (7-18); CO2 28.7 mmol/L (21.0-32.0); CREATININE 1.1 mg/dL (0.55-1.02); Calcium 9.7 mg/dL (8.5-10.1); Chloride 101 mmol/L (98-107); Estimated GFR 53.39 (mL/min/1.73m2); Glucose 133 mg/dL (74-106); Potassium 3.8 mmol/L (3.5-5.1); Sodium 139 mmol/L (136-145)
== END 2024-10-25 12:31 | disposition home or self-care (01) ==
LOC: LBO 12:30
PROVIDERS: PCP Nurse Practitioner Adult Health; Visit Provider Nurse Practitioner Family
DX: N17.9 Acute kidney failure, unspecified (principal)
CPT/HCPCS: 36415; 80048

== ENCOUNTER 2024-11-01 01:35 | Outpatient (RCR) | payer MEDICARE, BC, SELFPAY ==
[2024-11-01] MEDS: Normal Saline Flush 5 ML SYR IVP (13:11)
[2024-11-01] MEDS: ABATACEPT 750 MG in Normal Saline 100 ML 200 MG IVPB (13:11)
== END 2024-11-29 23:59 | disposition home or self-care (01) ==
LOC: INF 01:35
PROVIDERS: PCP Nurse Practitioner Adult Health; Visit Provider Internal Medicine Rheumatology
DX: M05.79 Rheumatoid arthritis with rheumatoid factor of multiple sites without organ or systems involvement (principal)
CPT/HCPCS: 96365; J0129

== ENCOUNTER 2024-11-02 11:50 | Outpatient (CLI) | payer MEDICARE, BC, SELFPAY ==
[2024-11-02 11:47] LABS: Anion Gap 10.6 mmol/L (3-11); BUN 21 mg/dL (7-18); CO2 29.4 mmol/L (21.0-32.0); CREATININE 1.3 mg/dL (0.55-1.02); Calcium 9.6 mg/dL (8.5-10.1); Chloride 102 mmol/L (98-107); Estimated GFR 43.69 (mL/min/1.73m2); Glucose 294 mg/dL (74-106); Potassium 3.3 mmol/L (3.5-5.1); Sodium 142 mmol/L (136-145)
--- NOTE | 2024-11-12 11:15 | RT.EKG_ITS ---
APPROVED REPORT Exam: Resting ECG Reason for Exam: Baseline Patient Location: O HR:69 bpm ECG Measurements Heart Rate 69 AXIS [place] 139 P 61 QRSd 101 QRS 26 QT 429 T 38 QTc 460 Conclusion Sinus rhythm...normal P axis, V-rate 50- 99 Normal Electrocardiogram
== END 2024-11-02 11:51 | disposition home or self-care (01) ==
LOC: LBO 11:53
PROVIDERS: PCP Nurse Practitioner Adult Health; Visit Provider Emergency Medicine
DX: N28.9 Disorder of kidney and ureter, unspecified (principal)
CPT/HCPCS: 36415; 80048

== ENCOUNTER 2024-11-12 14:22 | Outpatient (RCR) | payer MEDICARE, BC, SELFPAY | END 2024-11-29 23:59 | disposition home or self-care (01) | LOC: CR 14:22 | PROVIDERS: PCP Nurse Practitioner Adult Health; Visit Provider Internal Medicine Cardiovascular Disease | DX: I35.2 Nonrheumatic aortic (valve) stenosis with insufficiency (principal); Z51.89 Encounter for other specified aftercare | CPT/HCPCS: S9472 ==

== ENCOUNTER 2024-11-29 08:07 | Outpatient (RCR) | payer MEDICARE, BC, SELFPAY | END 2024-11-29 23:59 | disposition home or self-care (01) | LOC: CR 08:07 | PROVIDERS: PCP Nurse Practitioner Adult Health; Visit Provider Internal Medicine Cardiovascular Disease | DX: I35.2 Nonrheumatic aortic (valve) stenosis with insufficiency (principal); Z95.5 Presence of coronary angioplasty implant and graft; Z51.89 Encounter for other specified aftercare | CPT/HCPCS: S9472 ==

== ENCOUNTER 2024-12-14 04:12 | Outpatient (CLI) | payer MEDICARE, BC, SELFPAY ==
[2024-12-14] MEDS: Inhaler, Assist Device 1 EACH MC (09:23)
[2024-12-14] MEDS: Levalbuterol HFA 15 GM INH 4 PUFF IH (09:23)
--- NOTE | 2024-12-22 10:30 | W.PFT ---
Date of service: 12/14/24 Time of Service: 08:09 Pulmonary Function Test Result Indications: Dyspnea Interpretation Spirometry: There is moderate airflow limitation. There is a significant bronchodilator response. Diffusion Capacity: Normal diffusion Impression Moderate airflow obstruction and a normal diffusion Clinical Correlation therefore is recommended.
== END 2024-12-14 04:13 | disposition home or self-care (01) ==
LOC: RT 04:12
PROVIDERS: PCP Nurse Practitioner Adult Health; Visit Provider Student in an Organized Health Care Education/Training Program
DX: R05.8 Other specified cough (principal); R06.02 Shortness of breath
CPT/HCPCS: 94060; 94729

== ENCOUNTER 2024-12-24 09:36 | Outpatient (RCR) | payer MEDICARE, BC, SELFPAY | END 2024-12-29 23:59 | disposition home or self-care (01) | LOC: CR 09:36 | PROVIDERS: PCP Nurse Practitioner Adult Health; Visit Provider Internal Medicine Cardiovascular Disease | DX: I35.0 Nonrheumatic aortic (valve) stenosis (principal); Z95.2 Presence of prosthetic heart valve | CPT/HCPCS: S9472 ==

== ENCOUNTER 2024-12-28 00:19 | Outpatient (RCR) | payer MEDICARE, BC, SELFPAY ==
[2024-11-30] MEDS: Normal Saline Flush 5 ML SYR IVP (08:32)
[2024-11-30 08:41] LABS: Abs Immature Grans 0.02 10^3/uL (0.0-0.06); Absolute Basophil Count 0.11 10^3/uL (0.0-0.2); Absolute Eosinophil Count 0.49 10^3/uL (0.0-0.7); Absolute Lymphocyte Count 1.72 10^3/uL (1.2-3.4); Absolute Monocyte Count 0.57 10^3/uL (0.1-0.8); Absolute Neutrophil Count 4.01 10^3/uL (1.2-6.7); Basophils % 1.6 %; Eosinophils % 7.1 %; HCT 46.2 % (36.0-46.0); Immature Grans % 0.3 %; Lymphocytes % 24.9 %; MCH 30.3 pg (27.0-33.0); MCHC 32.5 % (32.0-36.0); MCV 93 fL (80-95); MPV 10.1 fL (8.0-11.0); Monocytes % 8.2 %; Neutrophils % 57.9 %; Platelet Count 226 10^3/uL (130-400); RBC 4.95 10^6/uL (3.93-5.22); RDW 13.4 % (11.7-14.6); RDW-SD 45.8 fL; WBC 6.92 10^3/uL (4.4-10.8)
[2024-11-30 08:49] LABS: Hemoglobin A1C 6.2 % (<5.7)
[2024-11-30 08:57] LABS: ALT 15 U/L (14-59); AST 14 U/L (15-37); Albumin 3.7 g/dL (3.4-5.0); Alkaline Phosphatase 75 U/L (46-116); Anion Gap 11.2 mmol/L (3-11); BUN 22 mg/dL (7-18); Bilirubin, Total 1.2 mg/dL (0.2-1.0); C-Reactive Protein < 0.50 mg/dL (<or=0.5); CO2 27.8 mmol/L (21.0-32.0); CREATININE 1.3 mg/dL (0.55-1.02); Calcium 9.8 mg/dL (8.5-10.1); Chloride 101 mmol/L (98-107); Estimated GFR 43.69 (mL/min/1.73m2); Glucose 216 mg/dL (74-106); Potassium 3.8 mmol/L (3.5-5.1); Sodium 140 mmol/L (136-145); Total Protein 7.2 g/dL (6.4-8.2)
[2024-11-30] MEDS: ABATACEPT 750 MG in Normal Saline 100 ML 200 MG IVPB (09:01)
[2024-12-28] MEDS: ABATACEPT 750 MG in Normal Saline 100 ML 200 MG IVPB (08:35)
[2024-12-28] MEDS: Normal Saline Flush 5 ML SYR IVP (08:42)
== END 2024-12-29 23:59 | disposition home or self-care (01) ==
LOC: INF 00:19
PROVIDERS: PCP Nurse Practitioner Adult Health; Visit Provider Internal Medicine Rheumatology
DX: M05.79 Rheumatoid arthritis with rheumatoid factor of multiple sites without organ or systems involvement (principal)
CPT/HCPCS: 36415; 80053; 96365; 83036; 85025; 86140; J0129

== ENCOUNTER 2025-01-21 09:00 | Outpatient (RCR) | payer MEDICARE, BC, SELFPAY | END 2025-01-29 23:59 | disposition home or self-care (01) | LOC: CR 09:00 | PROVIDERS: PCP Nurse Practitioner Adult Health; Visit Provider Internal Medicine Cardiovascular Disease | DX: I35.2 Nonrheumatic aortic (valve) stenosis with insufficiency (principal); Z95.5 Presence of coronary angioplasty implant and graft; Z51.89 Encounter for other specified aftercare | CPT/HCPCS: S9472 ==

== ENCOUNTER 2025-01-25 02:02 | Outpatient (RCR) | payer MEDICARE, BC, SELFPAY ==
[2025-01-25] MEDS: ABATACEPT 750 MG in Normal Saline 100 ML 200 MG IVPB (13:33)
[2025-01-25] MEDS: Normal Saline Flush 5 ML SYR IVP (14:14)
== END 2025-01-29 23:59 | disposition home or self-care (01) ==
LOC: INF 02:02
PROVIDERS: PCP Nurse Practitioner Adult Health; Visit Provider Internal Medicine Rheumatology
DX: M05.79 Rheumatoid arthritis with rheumatoid factor of multiple sites without organ or systems involvement (principal)
CPT/HCPCS: 96365; J0129

== ENCOUNTER 2025-02-22 02:43 | Outpatient (RCR) | payer MEDICARE, BC, SELFPAY ==
[2025-02-22 09:22] LABS: Abs Immature Grans 0.02 10^3/uL (0.0-0.06); Absolute Basophil Count 0.07 10^3/uL (0.0-0.2); Absolute Eosinophil Count 0.37 10^3/uL (0.0-0.7); Absolute Lymphocyte Count 2.31 10^3/uL (1.2-3.4); Absolute Monocyte Count 0.72 10^3/uL (0.1-0.8); Absolute Neutrophil Count 3.24 10^3/uL (1.2-6.7); Eosinophils % 5.5 %; HCT 43.8 % (36.0-46.0); HGB 14.4 g/dL (11.2-15.7); Immature Grans % 0.3 %; Lymphocytes % 34.3 %; MCH 30.1 pg (27.0-33.0); MCHC 32.9 % (32.0-36.0); MCV 92 fL (80-95); Monocytes % 10.7 %; Neutrophils % 48.2 %; Platelet Count 223 10^3/uL (130-400); RBC 4.78 10^6/uL (3.93-5.22); RDW 12.4 % (11.7-14.6); WBC 6.73 10^3/uL (4.4-10.8)
[2025-02-22] MEDS: ABATACEPT 750 MG in Normal Saline 100 ML 200 MG IVPB (09:23)
[2025-02-22] MEDS: Normal Saline Flush 10 ML SYR IVP (09:24)
[2025-02-22 09:43] LABS: ALT 17 U/L (14-59); AST 29 U/L (15-37); Albumin 3.6 g/dL (3.4-5.0); Alkaline Phosphatase 72 U/L (46-116); Anion Gap 9.9 mmol/L (3-11); BUN 30 mg/dL (7-18); Bilirubin, Total 1.1 mg/dL (0.2-1.0); CO2 27.1 mmol/L (21.0-32.0); Calcium 8.9 mg/dL (8.5-10.1); Chloride 101 mmol/L (98-107); Estimated GFR 59.86 (mL/min/1.73m2); Glucose 173 mg/dL (74-106); Hemoglobin A1C 6.3 % (<5.7); Potassium 4.2 mmol/L (3.5-5.1); Sodium 138 mmol/L (136-145)
[2025-02-22 09:45] LABS: C-Reactive Protein < 0.50 mg/dL (<or=0.5)
== END 2025-02-28 23:59 | disposition home or self-care (01) ==
LOC: INF 02:43
PROVIDERS: PCP Nurse Practitioner Adult Health; Visit Provider Internal Medicine Rheumatology
DX: M05.79 Rheumatoid arthritis with rheumatoid factor of multiple sites without organ or systems involvement (principal); E11.9 Type 2 diabetes mellitus without complications
CPT/HCPCS: 36415; 80053; 96365; 83036; 85025; 86140; J0129

== ENCOUNTER → 2025-03-07 08:13 | Outpatient (BNVA) | payer MEDICARE, BC, SELFPAY | PROVIDERS: PCP Nurse Practitioner Adult Health; Referring Provider Nurse Practitioner Adult Health; Visit Provider Physician Assistant Surgical | DX: J45.909 Unspecified asthma, uncomplicated (principal) | CPT/HCPCS: 99214 ==

== ENCOUNTER 2025-03-22 02:50 | Outpatient (RCR) | payer MEDICARE, BC, SELFPAY ==
[2025-03-22] MEDS: Normal Saline Flush 10 ML SYR IVP (10:04)
[2025-03-22] MEDS: ABATACEPT 750 MG in Normal Saline 100 ML 200 MG IVPB (10:09)
== END 2025-03-31 23:59 | disposition home or self-care (01) ==
LOC: INF 02:50
PROVIDERS: PCP Nurse Practitioner Adult Health; Visit Provider Internal Medicine Rheumatology
DX: M05.79 Rheumatoid arthritis with rheumatoid factor of multiple sites without organ or systems involvement (principal)
CPT/HCPCS: 96365; J0129

== ENCOUNTER 2025-04-19 08:19 | Outpatient (CLI) | payer MEDICARE, BC, SELFPAY ==
[2025-04-19] MEDS: Normal Saline Flush 10 ML SYR IVP (09:16)
[2025-04-19] MEDS: ABATACEPT 750 MG in Normal Saline 100 ML 200 MG IVPB (09:17)
== END 2025-04-19 08:20 | disposition home or self-care (01) ==
LOC: INF 08:20
PROVIDERS: PCP Nurse Practitioner Adult Health; Visit Provider Nurse Practitioner Acute Care
DX: M05.79 Rheumatoid arthritis with rheumatoid factor of multiple sites without organ or systems involvement (principal)
CPT/HCPCS: 96365; J0129

== ENCOUNTER 2025-05-17 04:05 | Outpatient (CLI) | payer MEDICARE, BC, SELFPAY ==
[2025-05-17] MEDS: ABATACEPT 750 MG in Normal Saline 100 ML 200 MG IVPB (09:26)
[2025-05-17] MEDS: Normal Saline Flush 10 ML SYR IVP (09:26)
[2025-05-17 09:38] LABS: Abs Immature Grans 0.02 10^3/uL (0.0-0.06); HCT 46.1 % (36.0-46.0); HGB 15.2 g/dL (11.2-15.7); Immature Grans % 0.4 %; MCH 30.9 pg (27.0-33.0); MCHC 33.0 % (32.0-36.0); MCV 94 fL (80-95); MPV 10.3 fL (8.0-11.0); Platelet Count 223 10^3/uL (130-400); RBC 4.92 10^6/uL (3.93-5.22); RDW 12.0 % (11.7-14.6); RDW-SD 42.0 fL; WBC 5.71 10^3/uL (4.4-10.8)
[2025-05-17 09:56] LABS: Hemoglobin A1C 6.0 % (<5.7)
[2025-05-17 09:57] LABS: ALT 15 U/L (14-59); AST 19 U/L (15-37); Albumin 3.8 g/dL (3.4-5.0); Alkaline Phosphatase 79 U/L (46-116); Anion Gap 6.1 mmol/L (3-11); BUN 18 mg/dL (7-18); Bilirubin, Total 1.0 mg/dL (0.2-1.0); CO2 31.9 mmol/L (21.0-32.0); Calcium 9.5 mg/dL (8.5-10.1); Chloride 102 mmol/L (98-107); Estimated GFR 77.75 (mL/min/1.73m2); Glucose 142 mg/dL (74-106); Potassium 3.8 mmol/L (3.5-5.1); Sodium 140 mmol/L (136-145); Total Protein 7.2 g/dL (6.4-8.2)
[2025-05-17 10:03] LABS: C-Reactive Protein < 0.50 mg/dL (<or=0.5)
[2025-05-24 17:41] LABS: Apolipoprotein B, Serum 120 mg/dL (48-124); Beta VLDL Cholesterol Not Detected mg/dL (<15); Beta VLDL Triglycerides Not Detected mg/dL (<15); Cholesterol, Total, CDC 257 mg/dL; Chylomicron Cholesterol Not Detected; Chylomicron Triglycerides Not Detected; HDL Cholesterol, CDC 65 mg/dL (>=50); LpX Not detected; Triglycerides, CDC 130 mg/dL; VLDL Triglycerides 63 mg/dL (<120)
== END 2025-05-17 04:06 | disposition home or self-care (01) ==
LOC: INF 04:05
PROVIDERS: Internal Medicine Rheumatology; PCP Nurse Practitioner Adult Health; Visit Provider Nurse Practitioner Adult Health
DX: M05.79 Rheumatoid arthritis with rheumatoid factor of multiple sites without organ or systems involvement (principal); E78.5 Hyperlipidemia, unspecified; E11.9 Type 2 diabetes mellitus without complications
CPT/HCPCS: 36415; 80053; 80061; 83695; 82172; 82664; 83036; 85025; 86140; J0129

== ENCOUNTER → 2025-06-06 11:03 | Outpatient (BNVA) | payer MEDICARE, BC, SELFPAY | PROVIDERS: PCP Nurse Practitioner Adult Health; Referring Provider Nurse Practitioner Adult Health; Visit Provider Physician Assistant Surgical | DX: J45.20 Mild intermittent asthma, uncomplicated (principal); J98.8 Other specified respiratory disorders; R01.1 Cardiac murmur, unspecified | CPT/HCPCS: 99214 ==

== ENCOUNTER 2025-06-14 02:26 | Outpatient (CLI) | payer MEDICARE, BC, SELFPAY ==
[2025-06-14] MEDS: Normal Saline Flush 10 ML SYR IVP (08:40)
[2025-06-14] MEDS: ABATACEPT 750 MG in Normal Saline 100 ML 200 MG IVPB (08:40)
== END 2025-06-14 02:27 | disposition home or self-care (01) ==
PROVIDERS: PCP Nurse Practitioner Adult Health; Visit Provider Nurse Practitioner Adult Health
DX: M05.79 Rheumatoid arthritis with rheumatoid factor of multiple sites without organ or systems involvement (principal)
CPT/HCPCS: 96365; J0129

== ENCOUNTER 2025-07-12 00:55 | Outpatient (CLI) | payer MEDICARE, BC, SELFPAY ==
[2025-07-12] MEDS: ABATACEPT 750 MG in Normal Saline 100 ML 200 MG IVPB (09:45)
[2025-07-12] MEDS: Normal Saline Flush 10 ML SYR IVP (13:25)
== END 2025-07-12 00:56 | disposition home or self-care (01) ==
LOC: INF 00:55
PROVIDERS: PCP Nurse Practitioner Adult Health; Visit Provider Family Medicine
DX: M05.79 Rheumatoid arthritis with rheumatoid factor of multiple sites without organ or systems involvement (principal)
CPT/HCPCS: 96365; J0129

== ENCOUNTER 2025-08-09 00:54 | Outpatient (CLI) | payer MEDICARE, BC, SELFPAY ==
[2025-08-09] MEDS: ABATACEPT 750 MG in Normal Saline 100 ML 200 MG IVPB (09:31)
[2025-08-09 09:48] LABS: Abs Immature Grans 0.03 10^3/uL (0.0-0.06); HCT 46.2 % (36.0-46.0); HGB 15.5 g/dL (11.2-15.7); Immature Grans % 0.5 %; MCH 30.5 pg (27.0-33.0); MCHC 33.5 % (32.0-36.0); MCV 91 fL (80-95); MPV 10.2 fL (8.0-11.0); Platelet Count 220 10^3/uL (130-400); RBC 5.09 10^6/uL (3.93-5.22); RDW 12.4 % (11.7-14.6); RDW-SD 41.2 fL; WBC 6.08 10^3/uL (4.4-10.8)
[2025-08-09 10:04] LABS: C-Reactive Protein < 0.50 mg/dL (<=0.50)
[2025-08-09 10:05] LABS: Hemoglobin A1C 6.5 % (<5.7)
[2025-08-09 10:06] LABS: ALT 10 U/L (10-49); AST 20 U/L (<34); Albumin 4.5 g/dL (3.2-5.0); Alkaline Phosphatase 74 U/L (46-116); Anion Gap 9.9 mmol/L (3-11); BUN 24 mg/dL (9-23); Bilirubin, Total 0.9 mg/dL (0.2-1.2); CO2 27.1 mmol/L (20.0-31.0); Calcium 9.6 mg/dL (8.3-10.6); Chloride 104 mmol/L (98-107); Glucose 140 mg/dL (74-106); Potassium 3.9 mmol/L (3.5-5.1); Sodium 141 mmol/L (136-145); Total Protein 7.2 g/dL (5.7-8.2)
[2025-08-09] MEDS: Normal Saline Flush 10 ML SYR IVP (10:14)
== END 2025-08-09 00:55 | disposition home or self-care (01) ==
LOC: INF 00:54
PROVIDERS: Student in an Organized Health Care Education/Training Program; PCP Nurse Practitioner Adult Health; Visit Provider Nurse Practitioner Acute Care
DX: M05.79 Rheumatoid arthritis with rheumatoid factor of multiple sites without organ or systems involvement (principal); E11.9 Type 2 diabetes mellitus without complications
CPT/HCPCS: 36415; 80053; 96365; 83036; 85025; 86140; J0129